=== PATIENT | male | born 1960 | race Two or more races ===

== ENCOUNTER 2019-01-12 16:38 | Inpatient (IN) | payer OTHER ==
[~2019-01-12] VITALS: Ht 170.2 cm; Wt 87.5 kg
--- NOTE | 2019-01-12 17:00 | NUR ---
ED Nurse Note: Patient arrived by ambulance from hospice due to prolapsed colostomy and AMS. A/Ox0, Non-verbal. SBP in the 90's, MD aware. Afebrile. IV site already estbalished by EMS on LFA 22G. Patient was found on the ground at the hospice. Will continue care of plan.
--- NOTE | 2019-01-12 17:13 | NUR ---
ED Nurse Note: RN spoke to Vasile richards at [facility]. Patient was found on the floor @ 1330. Unwitneesed fall. No information available if patient sustain any new injury.
[2019-01-12 17:14] LABS: HEMATOCRIT 29.8 % (42.0-52.0); MEAN CORPUSCULAR VOLUME 85 FL (80-99); PLATELET COUNT 138 K/UL (150-450); RED BLOOD COUNT 3.51 M/UL (4.70-6.10); RED CELL DISTRIBUTION WIDTH 20.6 % (11.6-14.8); WHITE BLOOD COUNT 6.6 K/UL (4.8-10.8)
[2019-01-12 17:19] LABS: BASOPHILS % (AUTO) 0.4 % (0.0-2.0); EOSINOPHILS % (AUTO) 1.5 % (0.0-3.0); LYMPHOCYTES % (AUTO) 8.5 % (20.0-45.0); MONOCYTES % (AUTO) 4.7 % (1.0-10.0); NEUTROPHILS % (AUTO) 86.9 % (45.0-75.0)
--- NOTE | 2019-01-12 17:24 | Emergency Room Report ---
History of Present Illness General Chief Complaint: Altered Level of Consciousness Present Illness HPI 58-year-old male sent in from [facility] for hypoxia, fall 1 PM today, and colostomy complication. Patient is DNR/DNI, comfort measures only. Patient is nonverbal history taken from [facility] paperwork and report by EMS. Patient sustained a fall out of his bed today at unknown time was found on the floor at 1 PM. Patient was found to be hypoxic saturating 80% on room air at that time. Patient's pulse ox improved with nonrebreather prior to arrival. As per paperwork patient also noted to have protruding colon into colostomy bag. Patient unable to provide history due to nonverbal status. Allergies: Coded Allergies: PENICILLINS (Verified Allergy, Unknown, 01/12/19) Physical Exam Vital Signs Date Time Temp Pulse Resp B/P (MAP) Pulse Ox O2 Delivery O2 Flow Rate FiO2 01/12/19 16:38 99.0 54 22 98/57 (71) 100 Non-Rebreather Sp02 EP Interpretation: reviewed, abnormal - 85% on room air improves to 100% on nonrebreather General Appearance: moderate distress Head: other - Well-healing laceration above right eye, clean dry and intact, mild erythema superior to right orbit. Respiratory: other - Rhonchi bilaterally poor inspiratory effort Cardiovascular #1: regular rate, rhythm, no edema Cardiovascular #2: 2+ radial (R), 2+ radial (L) Gastrointestinal: soft, other - Left-sided colostomy noted with pink tissue stool in colostomy bag, no erythema or surrounding discharge Skin: other - Multiple diffuse ecchymoses on lower extremities, dressing covering right lower leg wound clean dry and intact Procedures Critical Care Time Critical Care Time Patient arrived he ED hypoxic. 60 minutes of critical care time, excluding procedures, spent on reevaluating patient's pulse oxygenation. Decision to make patient on BiPAP continue to reassess. Patient became hypotensive. Central line placed. Patient admitted to ICU Central Line Central Line : Consent: Verbal Central Line Lumen: triple Maximal Sterile Barrier Tech: yes cap, yes mask, yes sterile gown, yes sterile gloves, yes large sterile sheet, yes hand hygiene, yes chlorhexidine prep Anesthesia: Lidocaine Complications: none Central Line Post Position: sutured, good blood return, position confirmed w / CXR Attempts: Other - 2 Patient Tolerated: Well Complications: None Medical Decision Making ER Course 58-year-old male presents with altered mental status status post fall hypoxia and abnormal colostomy. Patient found to be hypoxic to 84% improved with nonrebreather decision with family made at bedside to put patient on BiPAP comfort measures removed patient made full code however noted no intubation. Patient's would like BiPAP central line and pressors as needed. Patient became hypotensive at 21:00, central line placed in the right internal jugular. Patient tolerated procedure well patient admitted to ICU discussed case with Dr. Geiger. Labs Test 01/12/19 16:30 01/12/19 17:25 01/12/19 19:30 White Blood Count 6.6 K/UL (4.8-10.8) Red Blood Count 3.51 M/UL (4.70-6.10) Hemoglobin 9.0 G/DL (14.2-18.0) Hematocrit 29.8 % (42.0-52.0) Mean Corpuscular Volume 85 FL (80-99) Mean Corpuscular Hemoglobin 25.7 PG (27.0-31.0) Mean Corpuscular Hemoglobin Concent 30.3 G/DL (32.0-36.0) Red Cell Distribution Width 20.6 % (11.6-14.8) Platelet Count 138 K/UL (150-450) Mean Platelet Volume 6.6 FL (6.5-10.1) Neutrophils (%) (Auto) 86.9 % (45.0-75.0) Lymphocytes (%) (Auto) 8.5 % (20.0-45.0) Monocytes (%) (Auto) 4.7 % (1.0-10.0) Eosinophils (%) (Auto) 1.5 % (0.0-3.0) Basophils (%) (Auto) 0.4 % (0.0-2.0) Prothrombin Time 13.6 SEC (9.30-11.50) Prothromb Time International Ratio 1.3 (0.9-1.1) Sodium Level 146 MMOL/L (136-145) Potassium Level 3.9 MMOL/L (3.5-5.1) Chloride Level 107 MMOL/L (98-107) Carbon Dioxide Level 37 MMOL/L (21-32) Anion Gap 2 mmol/L (5-15) Blood Urea Nitrogen 21 mg/dL (7-18) Creatinine 1.2 MG/DL (0.55-1.30) Estimat Glomerular Filtration Rate > 60 mL/min (>60) Glucose Level 115 MG/DL (74-106) Lactic Acid Level 1.20 mmol/L (0.4-2.0) Calcium Level 8.6 MG/DL (8.5-10.1) Total Bilirubin 0.9 MG/DL (0.2-1.0) Aspartate Amino Transf (AST/SGOT) 28 U/L (15-37) Alanine Aminotransferase (ALT/SGPT) 16 U/L (12-78) Alkaline Phosphatase 84 U/L (46-116) Total Creatine Kinase 23 U/L (26-308) Creatine Kinase MB 2.1 NG/ML (0.0-3.6) Creatine Kinase MB Relative Index 9.1 Troponin I 0.010 ng/mL (0.000-0.056) Pro-B-Type Natriuretic Peptide 77797 pg/mL (0-125) Total Protein 6.4 G/DL (6.4-8.2) Albumin 1.8 G/DL (3.4-5.0) Globulin 4.6 g/dL Albumin/Globulin Ratio 0.4 (1.0-2.7) Urine Color Yellow Urine Appearance Slightly cloudy Urine pH 5 (4.5-8.0) Urine Specific [place] 1.020 (1.005-1.035) Urine Protein 1+ (NEGATIVE) Urine Glucose (UA) Negative (NEGATIVE) Urine Ketones Negative (NEGATIVE) Urine Blood 3+ (NEGATIVE) Urine Nitrite Negative (NEGATIVE) Urine Bilirubin Negative (NEGATIVE) Urine Urobilinogen Normal MG/DL (0.0-1.0) Urine Leukocyte Esterase 2+ (NEGATIVE) Urine RBC 2-4 /HPF (0 - 0) Urine WBC 20-30 /HPF (0 - 0) Urine Squamous Epithelial Cells Few /LPF (NONE/OCC) Urine Bacteria Moderate /HPF (NONE) Arterial Blood pH 7.315 (7.350-7.450) Arterial Blood Partial Pressure CO2 66.3 mmHg (35.0-45.0) Arterial Blood Partial Pressure O2 227.8 mmHg (75.0-100.0) Arterial Blood HCO3 33.0 mmol/L (22.0-26.0) Arterial Blood Oxygen Saturation 98.9 % (95-100) Arterial Blood Base Excess 5.6 (-2-2) Willian Test Positive Last Vital Signs Date Time Temp Pulse Resp B/P (MAP) Pulse Ox O2 Delivery O2 Flow Rate FiO2 01/12/19 16:38 99.0 54 22 98/57 (71) 100 Non-Rebreather Status: improved Reevaluation Impression Upgraded to ICU central line placed. pressors to be ordered as needed by inpatient Dr. Disposition: ADMITTED INPATIENT Condition: Critical Scripts Unable to Obtain Active Prescriptions or Reported Meds Referrals: NON PHYSICIAN (PCP) Maximino Castillo M.D. Jan 12, 2019 17:24
[2019-01-12 17:27] LABS: ANION GAP 2 mmol/L (5-15); BLOOD UREA NITROGEN 21 mg/dL (7-18); CALCIUM 8.6 MG/DL (8.5-10.1); CARBON DIOXIDE 37 MMOL/L (21-32); CHLORIDE 107 MMOL/L (98-107); CREATININE 1.2 MG/DL (0.55-1.30); INR 1.3 (0.9-1.1); POTASSIUM 3.9 MMOL/L (3.5-5.1); SODIUM 146 MMOL/L (136-145)
[2019-01-12 17:31] LABS: APPEARANCE,URINE SLIGHTLY CLOUDY; BILIRUBIN, URINE NEGATIVE (NEGATIVE); GLUCOSE, URINE (UA) NEGATIVE (NEGATIVE); KETONES,URINE NEGATIVE (NEGATIVE); LEUKOCYTE ESTERASE ,URINE 2+ (NEGATIVE); NITRITE,URINE NEGATIVE (NEGATIVE); PH,URINE 5 (4.5-8.0); PROTEIN,URINE 1+ (NEGATIVE); UROBILINOGEN,URINE NORMAL MG/DL (0.0-1.0)
[2019-01-12 17:32] LABS: COLOR,URINE YELLOW
[2019-01-12 17:40] LABS: ALANINE AMINOTRANSFERASE 16 U/L (12-78); ALBUMIN 1.8 G/DL (3.4-5.0); ALBUMIN/GLOBULIN RATIO 0.4 (1.0-2.7); ALKALINE PHOSPHATASE 84 U/L (46-116); ASPARTATE AMINO TRANSFERASE 28 U/L (15-37); BILIRUBIN,TOTAL 0.9 MG/DL (0.2-1.0); CKMB 2.1 NG/ML (0.0-3.6); CREATINE KINASE 23 U/L (26-308)
[2019-01-12] MEDS ORDERED: Cefepime HCl 1 GM in NS 55 ML IV SCH (18:00)
--- NOTE | 2019-01-12 18:15 | NUR ---
ED Nurse Note: General Sales Manager, Scott @ [phone] called here if patient arrived in ER.
--- NOTE | 2019-01-12 18:23 | NUR ---
ED Nurse Note: called SNF for medication list. will fax to ER.
--- NOTE | 2019-01-12 18:43 | Diagnostic Imaging Report ---
History: AMS Exam: XR CXR 1 VIEW Comparison: None available FINDINGS: Appearance suggesting a large left pleural effusion with white out of the left hemithorax. No evidence of mediastinal shift of the trachea. Enlarged cardiac size seen with note of multilead AICD. Patchy opacity at the right base may represent atelectasis or developing infiltrate. IMPRESSION: Appearance suggesting a large left pleural effusion with white out of the left hemithorax. No evidence of mediastinal shift of the trachea. Enlarged cardiac size seen with note of multilead AICD. Patchy opacity at the right base may represent atelectasis or developing infiltrate.
[2019-01-12 18:52] VITALS: BP 99/68
--- NOTE | 2019-01-12 18:52 | Diagnostic Imaging Report ---
History: FALL Exam: CT HEAD Without Contrast Technique more: CTDI is 62.70 mGy and DLP is 1426.40 mGy-cm. Technique more: One or more of the following dose reduction techniques were used: automated exposure control, adjustment of the mA and or kV according to patient size, use of iterative reconstruction technique. Comparison: None available FINDINGS: No intracranial hemorrhage, mass effect or calvarial fracture. The ventricles are within limits and midline. 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 Nonacute appearing right frontal infarct. Bilateral parasellar carotid and intracranial vertebral vascular calcification. The visualized peroneal sinuses, mastoids and orbits appear within limits. IMPRESSION: No intracranial hemorrhage, mass effect or calvarial fracture. 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 Nonacute appearing right frontal infarct, clinically correlate.
--- NOTE | 2019-01-12 19:14 | NUR ---
ED Nurse Note: Report given to NIMCO Sosa.
--- NOTE | 2019-01-12 19:15 | NUR ---
ED Nurse Note: pt family member at bedside. pt iv line intact and patent. pt shows no acute signs of distress at the moment. pt on a nonrebreather. vss. called RT for ABG. no other orders at this time. will continue to monitor
--- NOTE | 2019-01-12 19:19 | NUR ---
ED Nurse Note: Flu swabs collected and sent to lab.
[2019-01-12 19:20] VITALS: BP 98/74
--- NOTE | 2019-01-12 19:20 | NUR ---
ED Nurse Note: PT HAS 3 WOUNDS NOTED. WCP TAKEN AND UPLOADED Addendum: 01/12/19 at 2022 by PDELEON ED Nurse Note: PT HAS 4 WOUNDS NOTED. WCP TAKEN AND UPLOADED
--- NOTE | 2019-01-12 19:30 | NUR ---
ED Nurse Note: +1 PITTING EDEMA NOTED IN THE RIGHT HAND. ERMD AWARE.
--- NOTE | 2019-01-12 19:45 | NUR ---
ED Nurse Note: RT at bedside
--- NOTE | 2019-01-12 20:53 | NUR ---
ED Nurse Note: TELEPHONE ENDORSEMENT GIVEN TO NIMCO RODRIGUEZ FOR CONTINUITY OF CARE
[2019-01-12] MEDS ORDERED: Lidocaine 1% Plain 30 ml INJ ONE ×2 (21:07→21:30)
[2019-01-12 21:10] VITALS: BP 84/45
--- NOTE | 2019-01-12 21:15 | NUR ---
ED Nurse Note: Informed ermd that pt BP was 78/56.
--- NOTE | 2019-01-12 21:25 | NUR ---
ED Nurse Notes: Central line placed per ermd
--- NOTE | 2019-01-12 21:45 | NUR ---
ED Nurse Note: XRAY AT BEDSIDE
--- NOTE | 2019-01-12 21:48 | NUR ---
ED Nurse Note:. XRAY COMPLETE
--- NOTE | 2019-01-12 21:51 | Emergency Room Report ---
Sepsis Event Note Evaluation Current Stage of Sepsis: Septic Shock Possible Source: Pulmonary Problems: (1) Hypoxia ICD Codes: R09.02 - Hypoxemia SNOMED: 833515402 (2) AMS (altered mental status) ICD Codes: R41.82 - Altered mental status, unspecified Qualifiers: Qualified Codes: R41.0 - Disorientation, unspecified SNOMED: 399778833 Focused Exam Allergies: Coded Allergies: PENICILLINS (Verified Allergy, Unknown, 01/12/19) Date Exam Occurred: Jan 12, 2019 Time Exam Occurred: 21:49 Laboratory Studies Laboratory Tests Test 01/12/19 16:30 01/12/19 17:25 01/12/19 19:30 White Blood Count 6.6 K/UL (4.8-10.8) Red Blood Count 3.51 M/UL (4.70-6.10) L Hemoglobin 9.0 G/DL (14.2-18.0) L Hematocrit 29.8 % (42.0-52.0) L Mean Corpuscular Volume 85 FL (80-99) Mean Corpuscular Hemoglobin 25.7 PG (27.0-31.0) L Mean Corpuscular Hemoglobin Concent 30.3 G/DL (32.0-36.0) L Red Cell Distribution Width 20.6 % (11.6-14.8) H Platelet Count 138 K/UL (150-450) L Mean Platelet Volume 6.6 FL (6.5-10.1) Neutrophils (%) (Auto) 86.9 % (45.0-75.0) H Lymphocytes (%) (Auto) 8.5 % (20.0-45.0) L Monocytes (%) (Auto) 4.7 % (1.0-10.0) Eosinophils (%) (Auto) 1.5 % (0.0-3.0) Basophils (%) (Auto) 0.4 % (0.0-2.0) Prothrombin Time 13.6 SEC (9.30-11.50) H Prothromb Time International Ratio 1.3 (0.9-1.1) H Sodium Level 146 MMOL/L (136-145) H Potassium Level 3.9 MMOL/L (3.5-5.1) Chloride Level 107 MMOL/L (98-107) Carbon Dioxide Level 37 MMOL/L (21-32) H Anion Gap 2 mmol/L (5-15) L Blood Urea Nitrogen 21 mg/dL (7-18) H Creatinine 1.2 MG/DL (0.55-1.30) Estimat Glomerular Filtration Rate > 60 mL/min (>60) Glucose Level 115 MG/DL (74-106) H Lactic Acid Level 1.20 mmol/L (0.4-2.0) Calcium Level 8.6 MG/DL (8.5-10.1) Total Bilirubin 0.9 MG/DL (0.2-1.0) Aspartate Amino Transf (AST/SGOT) 28 U/L (15-37) Alanine Aminotransferase (ALT/SGPT) 16 U/L (12-78) Alkaline Phosphatase 84 U/L (46-116) Total Creatine Kinase 23 U/L (26-308) L Creatine Kinase MB 2.1 NG/ML (0.0-3.6) Creatine Kinase MB Relative Index 9.1 Troponin I 0.010 ng/mL (0.000-0.056) Pro-B-Type Natriuretic Peptide 23370 pg/mL (0-125) H Total Protein 6.4 G/DL (6.4-8.2) Albumin 1.8 G/DL (3.4-5.0) L Globulin 4.6 g/dL Albumin/Globulin Ratio 0.4 (1.0-2.7) L Urine Color Yellow Urine Appearance Slightly cloudy Urine pH 5 (4.5-8.0) Urine Specific [place] 1.020 (1.005-1.035) Urine Protein 1+ (NEGATIVE) H Urine Glucose (UA) Negative (NEGATIVE) Urine Ketones Negative (NEGATIVE) Urine Blood 3+ (NEGATIVE) H Urine Nitrite Negative (NEGATIVE) Urine Bilirubin Negative (NEGATIVE) Urine Urobilinogen Normal MG/DL (0.0-1.0) Urine Leukocyte Esterase 2+ (NEGATIVE) H Urine RBC 2-4 /HPF (0 - 0) H Urine WBC 20-30 /HPF (0 - 0) H Urine Squamous Epithelial Cells Few /LPF (NONE/OCC) Urine Bacteria Moderate /HPF (NONE) H Arterial Blood pH 7.315 (7.350-7.450) Arterial Blood Partial Pressure CO2 66.3 mmHg (35.0-45.0) *H Arterial Blood Partial Pressure O2 227.8 mmHg (75.0-100.0) H Arterial Blood HCO3 33.0 mmol/L (22.0-26.0) H Arterial Blood Oxygen Saturation 98.9 % (95-100) Arterial Blood Base Excess 5.6 (-2-2) H Willian Test Positive Vital Signs Last 24 Hour Vital Signs Date Time Temp Pulse Resp B/P (MAP) Pulse Ox O2 Delivery O2 Flow Rate FiO2 01/12/19 19:20 98.4 81 20 98/74 100 Venturi Mask 10.0 40 01/12/19 18:52 98.2 85 16 99/68 96 Venturi Mask 10.0 40 01/12/19 18:52 87 20 Venturi Mask 01/12/19 16:38 99.0 54 22 98/57 (71) 100 Non-Rebreather Respiratory Exam: Rhonchi - bilateral Cardiovascular Exam: RRR Capillary Refill: Less Than 2 Seconds Peripheral Pulse: Weak Skin Exam: Pale Bedside Monitoring Date bedside monitoring occur: Jan 12, 2019 Time bedside monitoring occur: 21:50 Passive Leg Raise/Fluid Bolus: Positive, Not Fluid Responsive - Central line and pressors started Maximino Castillo M.D. Jan 12, 2019 21:51
--- NOTE | 2019-01-12 21:56 | NUR ---
ED Nurse Note: SPOKE WITH PHARMACY ON THE PHONE. PHARMACY WILL PREPARE LEVOPHED IN 30 MIN
--- NOTE | 2019-01-12 22:35 | NUR ---
ED Nurse Note: Levophed intiated per protocol. will monitor BP and transfer pt to ICU per ermd order
--- NOTE | 2019-01-12 22:40 | Diagnostic Imaging Report ---
History: LINE Exam: XR CXR 1 VIEW at 21:45 Comparison: 01 12 2019 at 17:21 FINDINGS IMPRESSION: Right IJ line now seen with tip projecting at the expected location the lower SVC. No radiographic contraindication for use identified. No pneumothorax identified. Appearance of the chest otherwise not significantly changed.
[2019-01-12] MEDS ORDERED: Albuterol/Ipratropium 3ml neb HHN PRN (23:00)
--- NOTE | 2019-01-12 23:00 | NUR ---
TRANSFER TO FLOOR: Patient transferred to ICU as ordered, per ERMD. Report given to NIMCO Mai. Pt has no belongings. Family informed of transfer.
--- NOTE | 2019-01-12 23:00 | NUR ---
NURSE NOTES: Admitted pt from ED for AMS, hypotension. Pt arrived via gurney with STREET VENDOR. and transporter in no acute distress; awake, alert but somewhat confused. Follow commands and moves BUE purposefully. Speech garbled. Pt is currently on the Bipap at 10/5 fi)2 .35 and saturating 97%. Denies chest pains, denies SOB. Pt has a TLC on RIJ and Levophed gtt 8mg in [id number] infusing at 8mcg/min. Pt also has a PIV on RFA g 20. No beach cath. Left lower quadrant of abd noted to have a colostomy with freenish liquid stools and stoma is edematous but pinkish. Resurfaced old wound on sacral area as well as skin tears to right mccoy and LFA noted. Also noted sutures on right eyebrow.
[2019-01-12 23:15] VITALS: BP 91/78
[2019-01-12 23:30] VITALS: BP 106/72
[2019-01-12 23:45] VITALS: BP 107/77
[2019-01-12] MEDS ORDERED: D5NS 1,000 ML IV SCH (23:49)
[2019-01-13] VITALS (70 sets, daily range): BP systolic 73–121; BP diastolic 49–85
--- NOTE | 2019-01-13 | NUR ---
NURSE NOTES: Daughter Piper here and gave information on pt's health history as well clarify the code status. As per POLST, dtr verified that pt indeed is a DNR/DNI and signed a revised POLST. will continue to monitor VS
[2019-01-13] MEDS ORDERED: Vancomycin 1gm vial IVPB ONE (00:18)
--- NOTE | 2019-01-13 02:00 | NUR ---
NURSE NOTES: Continues to be on the Bipap; No respiratory distress noted. Levophed gtt continues at 8mcg/min. BP checked q 15mins. Pt getting restless and moves right hand purposefully
[2019-01-13] MEDS: Vancomycin 1 GM in D5W 275 ML IVPB SCH ×2 (02:27→16:26)
--- NOTE | 2019-01-13 04:00 | NUR ---
NURSE NOTES: Keeps removing the Bipap mask off. Restless. Complete bath given. Condom cath intact. Colostomy bag half filled with semi soft stools. Applied optifoam gel to skin tears and sacral area. Afebrile.
--- NOTE | 2019-01-13 06:00 | NUR ---
NURSE NOTES: Pt keeps getting bipap mask off and noticed that pt attempting to pull the central line out. [place] restraint applied to right arm:
[2019-01-13 06:14] LABS: BASOPHILS % (AUTO) 0.5 % (0.0-2.0); EOSINOPHILS % (AUTO) 2.4 % (0.0-3.0); HEMATOCRIT 33.9 % (42.0-52.0); HEMOGLOBIN 10.3 G/DL (14.2-18.0); LYMPHOCYTES % (AUTO) 10.4 % (20.0-45.0); MEAN CORPUSCULAR VOLUME 85 FL (80-99); MONOCYTES % (AUTO) 5.4 % (1.0-10.0); NEUTROPHILS % (AUTO) 81.4 % (45.0-75.0); PLATELET COUNT 182 K/UL (150-450); RED BLOOD COUNT 3.98 M/UL (4.70-6.10); RED CELL DISTRIBUTION WIDTH 20.7 % (11.6-14.8); WHITE BLOOD COUNT 7.5 K/UL (4.8-10.8)
[2019-01-13 06:42] LABS: ANION GAP 7 mmol/L (5-15); BLOOD UREA NITROGEN 20 mg/dL (7-18); CALCIUM 8.7 MG/DL (8.5-10.1); CARBON DIOXIDE 34 MMOL/L (21-32); CHLORIDE 107 MMOL/L (98-107); CREATININE 1.2 MG/DL (0.55-1.30); POTASSIUM 3.8 MMOL/L (3.5-5.1); SODIUM 148 MMOL/L (136-145)
--- NOTE | 2019-01-13 06:50 | NUR ---
RESPIRATORY NOTE: Received pt on Bipap 10/5- 35%FiO2. Pt is sleeping, no SOB or resp distress noted. No redness or skin breakdown noted, foam tapes applied on cheeks, chin and nose bridge. Alarms are set and audible, Bipap is plugged into the red outlet, ambu bag is at bedside. Will continue to monitor pt.
--- NOTE | 2019-01-13 07:15 | NUR ---
HAND-OFF: Report given to Gisell Telles RN.
--- NOTE | 2019-01-13 07:30 | NUR ---
NURSE NOTES: CONT LATE ENTRY RECEIVED REPORT FROM MICHAEL RINALDI. PT IN BED. DROWSY, AWAKENS TO SHAKING AND NAME. PUPILS 3MM SLUGGISH. PT ON PHYSICIAN RELATIONS REPRESENTATIVE HR 85, BP 104/55, 99%, RR 21. PT ON BIPAP 10/5, 35%. PT NPO EXCEPT MEDS AND ICE CHIPS. ABDOMEN DISTENDED, SOFT, NON TENDER. ABDOMINAL SOUNDS HYPOACTIVE, COLOSTOMY BAG LUQ, STOOL SOFT, NON FORMED, GREEN-BROWN. BILATERAL RADIAL AND PEDAL PULSES WEAK. CAP REFILL <3SEC. NO EDEMA. SKIN- SEE ASSESSMENT. IV ACCESS RT IJ. RUNNING LEVO AT 8MCG/MIN. D5NS AT 50ML/HR. STANDARD PRECAUTIONS IN PLACE. BED ALARM ON. LOCKED IN LOW POSITION. ELBOW RESTRAINT NOTED. WILL CONTINUE TO MONITOR PT.
[2019-01-13] MEDS: Aspirin EC 81mg tab ORAL SCH (08:46)
[2019-01-13] MEDS ORDERED: Enoxaparin 40mg Inj SUBQ SCH ×2 (09:00)
--- NOTE | 2019-01-13 12:00 | NUR ---
NURSE NOTES: CONT LATE ENTRY PT IN BED. RESTLESS, AWAKENS TO SHAKING. PUPILS 3MM SLUGGISH. PT ON LEARNING SUPPORT SPECIALIST HR 84, BP 83/53, 96%, RR 21. PT ON 4L NC WITH HUMIFICATION. PT NPO. ABDOMEN DISTENDED, SOFT, NON TENDER. COLOSTOMY BAG LUQ, CHANGED COLLECTION BAG. BILATERAL RADIAL AND PEDAL PULSES WEAK. CAP REFILL <3SEC. NO EDEMA. SKIN- SEE ASSESSMENT. IV ACCESS RT IJ. RUNNING LEVO AT 6 MCG/MIN. D5NS AT 50ML/HR. STANDARD PRECAUTIONS IN PLACE. BED ALARM ON. LOCKED IN LOW POSITION. RT SOFT WRIST RESTRAINT NOTED. WILL CONTINUE TO MONITOR PT.
--- NOTE | 2019-01-13 12:24 | History & Physical ---
History and Physical History & Physicial seen and examined. Full dictation completed no on 1221 hrs Preston Geiger MD Jan 13, 2019 12:24
--- NOTE | 2019-01-13 12:26 | General Progress Note ---
Assessment/Plan Status: stable Assessment/Plan: 1- Acute respiratory distress 2- Sepsis- HCA PNA 3- CM 4- CVA-ho of 5. DNR-DNI Plan: Pulmonary, ID, Nephro, are consulted on empirical abx rx. Subjective Allergies: Coded Allergies: PENICILLINS (Verified Allergy, Unknown, 01/12/19) Objective Last 24 Hour Vital Signs Date Time Temp Pulse Resp B/P (MAP) Pulse Ox O2 Delivery O2 Flow Rate FiO2 01/13/19 11:30 85 22 94/49 (64) 98 01/13/19 11:26 85 01/13/19 11:00 90 24 113/81 (92) 100 01/13/19 10:30 83 24 102/63 (76) 98 01/13/19 10:15 89 24 93/65 (74) 99 01/13/19 10:00 86 23 97/72 (80) 95 01/13/19 09:45 87 23 111/67 (82) 99 01/13/19 09:30 83 20 112/71 (85) 98 01/13/19 09:15 85 24 110/78 (89) 01/13/19 09:13 85 23 100 Facial 35 01/13/19 09:00 98.6 87 23 110/72 (85) 01/13/19 08:30 85 19 103/70 (81) 99 01/13/19 08:00 Bi-pap 01/13/19 08:00 82 18 97/67 (77) 98 01/13/19 08:00 35 01/13/19 08:00 84 01/13/19 07:30 84 23 104/55 (71) 100 01/13/19 07:00 86 21 107/63 (78) 100 01/13/19 06:50 88 19 100 Facial 35 01/13/19 06:45 86 20 107/64 (78) 99 01/13/19 06:30 84 21 111/75 (87) 100 01/13/19 06:15 84 23 104/65 (78) 99 01/13/19 06:00 84 20 102/59 (73) 96 01/13/19 06:00 102/59 01/13/19 05:45 90 18 99/58 (72) 97 01/13/19 05:30 85 21 100/60 (73) 97 01/13/19 05:26 86 29 100 Facial 35 01/13/19 05:15 86 23 100/69 (79) 100 01/13/19 05:00 84 20 106/62 (77) 100 01/13/19 05:00 115/71 01/13/19 04:45 89 25 115/71 (86) 01/13/19 04:30 89 23 113/70 (84) 01/13/19 04:15 93 24 108/66 (80) 93 01/13/19 04:00 121/81 01/13/19 04:00 97.6 85 23 121/81 (94) 95 01/13/19 04:00 Bi-pap 01/13/19 03:45 87 21 101/71 (81) 96 01/13/19 03:30 83 20 96/54 (68) 99 01/13/19 03:15 81 14 100 Facial 35 01/13/19 03:15 84 21 86/58 (67) 99 01/13/19 03:00 95/61 01/13/19 03:00 85 21 95/61 (72) 97 01/13/19 02:45 84 21 91/55 (67) 99 01/13/19 02:30 84 21 95/60 (72) 97 01/13/19 02:26 90/53 01/13/19 02:15 83 20 90/53 (65) 99 01/13/19 02:00 83 18 96/53 (67) 98 01/13/19 02:00 96/53 01/13/19 01:45 91 20 95/70 (78) 99 01/13/19 01:30 85 25 103/59 (74) 100 01/13/19 01:26 85 19 99 Facial 35 01/13/19 01:15 83 23 103/79 (87) 99 01/13/19 01:00 87 22 109/78 (88) 97 01/13/19 01:00 109/78 01/13/19 00:45 86 22 98/74 (82) 97 01/13/19 00:30 89 21 97/75 (82) 99 01/13/19 00:21 Bi-pap 01/13/19 00:15 88 21 108/85 (93) 98 01/13/19 00:00 88 01/13/19 00:00 35 01/13/19 00:00 97/75 01/13/19 00:00 87 23 92/74 (80) 98 01/12/19 23:45 87 22 107/77 (87) 97 01/12/19 23:30 88 22 106/72 (83) 97 01/12/19 23:15 97.6 87 18 91/78 (82) 98 01/12/19 23:00 106/72 01/12/19 23:00 98.5 82 24 119/71 100 Bi-pap 10.0 35 01/12/19 23:00 80 19 99 Facial 35 01/12/19 22:34 84/45 01/12/19 22:34 84/45 01/12/19 21:10 98.6 82 20 84/45 100 Bi-pap 01/12/19 21:08 88 21 97 Facial 35 01/12/19 20:00 81 19 98 Facial 35 01/12/19 19:20 98.4 81 20 98/74 100 Venturi Mask 10.0 40 01/12/19 18:52 98.2 85 16 99/68 96 Venturi Mask 10.0 40 01/12/19 18:52 87 20 Venturi Mask 01/12/19 16:38 99.0 54 22 98/57 (71) 100 Non-Rebreather Intake and Output 01/12/19 01/13/19 19:00 07:00 Intake Total 2055 ml 3060 ml Output Total 1 ml Balance 2055 ml 3059 ml Intake Oral 0 ml IV Total 2055 ml 3060 ml Output Urine Total 1 ml Laboratory Tests 01/12/19 16:30: White Blood Count 6.6, Red Blood Count 3.51L, Hemoglobin 9.0L, Hematocrit 29.8L , Mean Corpuscular Volume 85, Mean Corpuscular Hemoglobin 25.7L, Mean Corpuscular Hemoglobin Concent 30.3L, Red Cell Distribution Width 20.6H, Platelet Count 138L, Mean Platelet Volume 6.6, Neutrophils (%) (Auto) 86.9H, Lymphocytes (%) (Auto) 8.5L, Monocytes (%) (Auto) 4.7, Eosinophils (%) (Auto) 1.5, Basophils (%) (Auto) 0.4, Prothrombin Time 13.6H, Prothromb Time International Ratio 1.3H, Sodium Level 146H, Potassium Level 3.9, Chloride Level 107, Carbon Dioxide Level 37H, Anion Gap 2L, Blood Urea Nitrogen 21H, Creatinine 1.2, Estimat Glomerular Filtration Rate > 60, Glucose Level 115H, Lactic Acid Level 1.20, Calcium Level 8.6, Total Bilirubin 0.9, Aspartate Amino Transf (AST/SGOT) 28, Alanine Aminotransferase (ALT/SGPT) 16, Alkaline Phosphatase 84, Total Creatine Kinase 23L, Creatine Kinase MB 2.1, Creatine Kinase MB Relative Index 9.1, Troponin I 0.010, Pro-B-Type Natriuretic Peptide 26432Q, Total Protein 6.4, Albumin 1.8L, Globulin 4.6, Albumin/Globulin Ratio 0.4L 01/12/19 17:25: Urine Color Yellow, Urine Appearance Slightly cloudy, Urine pH 5, Urine Specific [place] 1.020, Urine Protein 1+H, Urine Glucose (UA) Negative, Urine Ketones Negative, Urine Blood 3+H, Urine Nitrite Negative, Urine Bilirubin Negative, Urine Urobilinogen Normal, Urine Leukocyte Esterase 2+H, Urine RBC 2- 4H, Urine WBC 20-30H, Urine Squamous Epithelial Cells Few, Urine Bacteria ModerateH 01/12/19 19:30: Arterial Blood pH 7.315L, Arterial Blood Partial Pressure CO2 66.3*H, Arterial Blood Partial Pressure O2 227.8H, Arterial Blood HCO3 33.0H, Arterial Blood Oxygen Saturation 98.9, Arterial Blood Base Excess 5.6H, Willian Test Positive 01/12/19 20:24: Arterial Blood pH 7.460H, Arterial Blood Partial Pressure CO2 51.2H, Arterial Blood Partial Pressure O2 71.8L, Arterial Blood HCO3 35.6H, Arterial Blood Oxygen Saturation 94.1L, Arterial Blood Base Excess 10.4*H, Willian Test Positive 01/13/19 04:19: White Blood Count 7.5, Red Blood Count 3.98L, Hemoglobin 10.3L, Hematocrit 33.9L , Mean Corpuscular Volume 85, Mean Corpuscular Hemoglobin 26.0L, Mean Corpuscular Hemoglobin Concent 30.4L, Red Cell Distribution Width 20.7H, Platelet Count 182, Mean Platelet Volume 5.7L, Neutrophils (%) (Auto) 81.4H, Lymphocytes (%) (Auto) 10.4L, Monocytes (%) (Auto) 5.4, Eosinophils (%) (Auto) 2.4, Basophils (%) (Auto) 0.5, Sodium Level 148H, Potassium Level 3.8, Chloride Level 107, Carbon Dioxide Level 34H, Anion Gap 7, Blood Urea Nitrogen 20H, Creatinine 1.2, Estimat Glomerular Filtration Rate > 60, Glucose Level 119H, Calcium Level 8.7 Height (Feet): 5 Height (Inches): 7.00 Weight (Pounds): 178 Preston Geiger MD Jan 13, 2019 12:26
--- NOTE | 2019-01-13 14:00 | NUR ---
NURSE NOTES: MD SCHWARTZ HERE TO SEE PT. WILL PLACE OWN ORDERS.
--- NOTE | 2019-01-13 14:59 | Pulmonolgy Critical Care Note ---
Critical Care - Asmt/Plan Problems: (1) Hypoxia (2) AMS (altered mental status) (3) Pulmonary hypertension (4) Dementia (5) H/O: stroke (6) Colostomy in place (7) Pacemaker (8) CHF (congestive heart failure) (9) Paroxysmal atrial fibrillation (10) Encephalopathy (11) SIRS (systemic inflammatory response syndrome) (12) Healthcare-associated pneumonia (13) Lung collapse Assessment/Plan: Optimize pulmonary hygiene/mobilize as tolerated D/C BiPAP, change to PRN only Titrate FiO2 to keep SaO2 > 90% RTC and PRN DUOnebs Mucomyst CPT Repeat CXR this afternoon Start Levaquin/Flagyl/Vanco, F/U Cx's Titrate NE to keep MAP > 60 Monitor volumes and renal function, change IVF to D5W@50 D/C LMWH, resume Xarelto NPO x meds with sips, 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 TESTER eval once off BiPAP and alert Monitor MS DVT Px: NOAC DNAR, continue to discuss GOC 60 min CCT D/W RN @ bedside Critical Care - Objective Last 24 Hour Vital Signs Date Time Temp Pulse Resp B/P (MAP) Pulse Ox O2 Delivery O2 Flow Rate FiO2 01/13/19 14:00 83 20 97/70 (79) 99 01/13/19 13:30 82 21 81/54 (63) 100 01/13/19 13:00 84 22 73/49 (57) 100 01/13/19 12:31 81 22 98 Full Face 35 01/13/19 12:30 84 20 86/49 (61) 97 01/13/19 12:00 98.6 87 19 94/60 (71) 98 01/13/19 12:00 Bi-pap 01/13/19 12:00 35 01/13/19 11:30 85 22 94/49 (64) 98 01/13/19 11:26 85 01/13/19 11:00 90 24 113/81 (92) 100 01/13/19 10:30 83 24 102/63 (76) 98 01/13/19 10:30 86 26 96 Facial 35 01/13/19 10:15 89 24 93/65 (74) 99 01/13/19 10:00 86 23 97/72 (80) 95 01/13/19 09:45 87 23 111/67 (82) 99 01/13/19 09:30 83 20 112/71 (85) 98 01/13/19 09:15 85 24 110/78 (89) 01/13/19 09:13 85 23 100 Facial 35 01/13/19 09:00 98.6 87 23 110/72 (85) 01/13/19 08:30 85 19 103/70 (81) 99 01/13/19 08:00 Bi-pap 01/13/19 08:00 82 18 97/67 (77) 98 01/13/19 08:00 35 01/13/19 08:00 84 01/13/19 07:30 84 23 104/55 (71) 100 01/13/19 07:00 86 21 107/63 (78) 100 01/13/19 06:50 88 19 100 Facial 35 01/13/19 06:45 86 20 107/64 (78) 99 01/13/19 06:30 84 21 111/75 (87) 100 01/13/19 06:15 84 23 104/65 (78) 99 01/13/19 06:00 84 20 102/59 (73) 96 01/13/19 06:00 102/59 01/13/19 05:45 90 18 99/58 (72) 97 01/13/19 05:30 85 21 100/60 (73) 97 01/13/19 05:26 86 29 100 Facial 35 01/13/19 05:15 86 23 100/69 (79) 100 01/13/19 05:00 84 20 106/62 (77) 100 01/13/19 05:00 115/71 01/13/19 04:45 89 25 115/71 (86) 01/13/19 04:30 89 23 113/70 (84) 01/13/19 04:15 93 24 108/66 (80) 93 01/13/19 04:00 121/81 01/13/19 04:00 97.6 85 23 121/81 (94) 95 01/13/19 04:00 Bi-pap 01/13/19 03:45 87 21 101/71 (81) 96 01/13/19 03:30 83 20 96/54 (68) 99 01/13/19 03:15 81 14 100 Facial 35 01/13/19 03:15 84 21 86/58 (67) 99 01/13/19 03:00 95/61 01/13/19 03:00 85 21 95/61 (72) 97 01/13/19 02:45 84 21 91/55 (67) 99 01/13/19 02:30 84 21 95/60 (72) 97 01/13/19 02:26 90/53 01/13/19 02:15 83 20 90/53 (65) 99 01/13/19 02:00 83 18 96/53 (67) 98 01/13/19 02:00 96/53 01/13/19 01:45 91 20 95/70 (78) 99 01/13/19 01:30 85 25 103/59 (74) 100 01/13/19 01:26 85 19 99 Facial 35 01/13/19 01:15 83 23 103/79 (87) 99 01/13/19 01:00 87 22 109/78 (88) 97 01/13/19 01:00 109/78 01/13/19 00:45 86 22 98/74 (82) 97 01/13/19 00:30 89 21 97/75 (82) 99 01/13/19 00:21 Bi-pap 01/13/19 00:15 88 21 108/85 (93) 98 01/13/19 00:00 88 01/13/19 00:00 35 01/13/19 00:00 97/75 01/13/19 00:00 87 23 92/74 (80) 98 01/12/19 23:45 87 22 107/77 (87) 97 01/12/19 23:30 88 22 106/72 (83) 97 01/12/19 23:15 97.6 87 18 91/78 (82) 98 01/12/19 23:00 106/72 01/12/19 23:00 98.5 82 24 119/71 100 Bi-pap 10.0 35 01/12/19 23:00 80 19 99 Facial 35 01/12/19 22:34 84/45 01/12/19 22:34 84/45 01/12/19 21:10 98.6 82 20 84/45 100 Bi-pap 01/12/19 21:08 88 21 97 Facial 35 01/12/19 20:00 81 19 98 Facial 35 10/18/19 19:20 98.4 81 20 98/74 100 Venturi Mask 10.0 40 01/12/19 18:52 98.2 85 16 99/68 96 Venturi Mask 10.0 40 01/12/19 18:52 87 20 Venturi Mask 01/12/19 16:38 99.0 54 22 98/57 (71) 100 Non-Rebreather Status: obtunded Condition: critical HEENT: atraumatic, normocephalic, other - BiPAP Neck: other - R IJ Lungs: rhonchi - on R, other - No BS on L Heart: HR/BP unstable Abdomen: soft, non-tender, active bowel sounds, other - Colostomy, midline wound granulated Extremities: no C/C/E Micro: Microbiology Date/Time Source Procedure Growth Status 01/12/19 19:50 Nasal Nares - Final Complete 01/12/19 19:50 Nasal Nares - Final Complete 01/12/19 20:02 Rectum Received Blood Sugars: BS controlled Critical Care - Subjective ROS Limited/Unobtainable: Yes ICU Day: 1 Interval Events: 60 M h/o CM S/P PM, pAF on Xarelto, CVA with baseline L sided weakness, dementia , PH on 5L O2 @ baseline, GERD, colostomy, DNAR/DNI with a POLST stating 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 His requested that pt be placed on pressors and BiPAP in the ED so a R IJ was placed, pt is on BiPAP and on 6 mcg NE. CXR with L HT opacified. He is arousable but confused. Condition: critical IV Access: central - R IJ EKG Rhythm: Sinus Rhythm FI02: 35 Vent Support Mode: BiLevel Secretions: None I&O: Intake and Output 01/12/19 01/13/19 19:00 07:00 Intake Total 2055 ml 3060 ml Output Total 1 ml Balance 2055 ml 3059 ml Intake Oral 0 ml IV Total 2055 ml 3060 ml Output Urine Total 1 ml Subjective: NISHI CXR: L HEMITHORAX OPACIFIED Labs: Laboratory Tests Test 01/12/19 16:30 01/12/19 17:25 01/12/19 19:30 01/12/19 20:24 White Blood Count 6.6 K/UL (4.8-10.8) Red Blood Count 3.51 M/UL (4.70-6.10) L Hemoglobin 9.0 G/DL (14.2-18.0) L Hematocrit 29.8 % (42.0-52.0) L Mean Corpuscular Volume 85 FL (80-99) Mean Corpuscular Hemoglobin 25.7 PG (27.0-31.0) L Mean Corpuscular Hemoglobin Concent 30.3 G/DL (32.0-36.0) L Red Cell Distribution Width 20.6 % (11.6-14.8) H Platelet Count 138 K/UL (150-450) L Mean Platelet Volume 6.6 FL (6.5-10.1) Neutrophils (%) (Auto) 86.9 % (45.0-75.0) H Lymphocytes (%) (Auto) 8.5 % (20.0-45.0) L Monocytes (%) (Auto) 4.7 % (1.0-10.0) Eosinophils (%) (Auto) 1.5 % (0.0-3.0) Basophils (%) (Auto) 0.4 % (0.0-2.0) Prothrombin Time 13.6 SEC (9.30-11.50) H Prothromb Time International Ratio 1.3 (0.9-1.1) H Sodium Level 146 MMOL/L (136-145) H Potassium Level 3.9 MMOL/L (3.5-5.1) Chloride Level 107 MMOL/L (98-107) Carbon Dioxide Level 37 MMOL/L (21-32) H Anion Gap 2 mmol/L (5-15) L Blood Urea Nitrogen 21 mg/dL (7-18) H Creatinine 1.2 MG/DL (0.55-1.30) Estimat Glomerular Filtration Rate > 60 mL/min (>60) Glucose Level 115 MG/DL (74-106) H Lactic Acid Level 1.20 mmol/L (0.4-2.0) Calcium Level 8.6 MG/DL (8.5-10.1) Total Bilirubin 0.9 MG/DL (0.2-1.0) Aspartate Amino Transf (AST/SGOT) 28 U/L (15-37) Alanine Aminotransferase (ALT/SGPT) 16 U/L (12-78) Alkaline Phosphatase 84 U/L (46-116) Total Creatine Kinase 23 U/L (26-308) L Creatine Kinase MB 2.1 NG/ML (0.0-3.6) Creatine Kinase MB Relative Index 9.1 Troponin I 0.010 ng/mL (0.000-0.056) Pro-B-Type Natriuretic Peptide 43315 pg/mL (0-125) H Total Protein 6.4 G/DL (6.4-8.2) Albumin 1.8 G/DL (3.4-5.0) L Globulin 4.6 g/dL Albumin/Globulin Ratio 0.4 (1.0-2.7) L Urine Color Yellow Urine Appearance Slightly cloudy Urine pH 5 (4.5-8.0) Urine Specific Vaughan 1.020 (1.005-1.035) Urine Protein 1+ (NEGATIVE) H Urine Glucose (UA) Negative (NEGATIVE) Urine Ketones Negative (NEGATIVE) Urine Blood 3+ (NEGATIVE) H Urine Nitrite Negative (NEGATIVE) Urine Bilirubin Negative (NEGATIVE) Urine Urobilinogen Normal MG/DL (0.0-1.0) Urine Leukocyte Esterase 2+ (NEGATIVE) H Urine RBC 2-4 /HPF (0 - 0) H Urine WBC 20-30 /HPF (0 - 0) H Urine Squamous Epithelial Cells Few /LPF (NONE/OCC) Urine Bacteria Moderate /HPF (NONE) H Arterial Blood pH 7.315 (7.350-7.450) 7.460 (7.350-7.450) Arterial Blood Partial Pressure CO2 66.3 mmHg (35.0-45.0) *H 51.2 mmHg (35.0-45.0) H Arterial Blood Partial Pressure O2 227.8 mmHg (75.0-100.0) H 71.8 mmHg (75.0-100.0) L Arterial Blood HCO3 33.0 mmol/L (22.0-26.0) H 35.6 mmol/L (22.0-26.0) H Arterial Blood Oxygen Saturation 98.9 % (95-100) 94.1 % (95-100) L Arterial Blood Base Excess 5.6 (-2-2) H 10.4 (-2-2) *H Willian Test Positive Positive Test 01/13/19 04:19 White Blood Count 7.5 K/UL (4.8-10.8) Red Blood Count 3.98 M/UL (4.70-6.10) L Hemoglobin 10.3 G/DL (14.2-18.0) L Hematocrit 33.9 % (42.0-52.0) L Mean Corpuscular Volume 85 FL (80-99) Mean Corpuscular Hemoglobin 26.0 PG (27.0-31.0) L Mean Corpuscular Hemoglobin Concent 30.4 G/DL (32.0-36.0) L Red Cell Distribution Width 20.7 % (11.6-14.8) H Platelet Count 182 K/UL (150-450) Mean Platelet Volume 5.7 FL (6.5-10.1) L Neutrophils (%) (Auto) 81.4 % (45.0-75.0) H Lymphocytes (%) (Auto) 10.4 % (20.0-45.0) L Monocytes (%) (Auto) 5.4 % (1.0-10.0) Eosinophils (%) (Auto) 2.4 % (0.0-3.0) Basophils (%) (Auto) 0.5 % (0.0-2.0) Sodium Level 148 MMOL/L (136-145) H Potassium Level 3.8 MMOL/L (3.5-5.1) Chloride Level 107 MMOL/L (98-107) Carbon Dioxide Level 34 MMOL/L (21-32) H Anion Gap 7 mmol/L (5-15) Blood Urea Nitrogen 20 mg/dL (7-18) H Creatinine 1.2 MG/DL (0.55-1.30) Estimat Glomerular Filtration Rate > 60 mL/min (>60) Glucose Level 119 MG/DL (74-106) H Calcium Level 8.7 MG/DL (8.5-10.1) James Maynard MD Jan 13, 2019 14:58
[2019-01-13] MEDS: Albuterol/Ipratropium 3ml neb HHN SCH ×3 (15:04→23:45)
--- NOTE | 2019-01-13 16:00 | NUR ---
NURSE NOTES: CONT LATE ENTRY PT IN BED. RESTLESS, AWAKENS TO SHAKING. PUPILS 3MM SLUGGISH. 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 PT ON 4L NC WITH HUMIFICATION. PT NPO. ABDOMEN DISTENDED, SOFT, NON TENDER. COLOSTOMY BAG LUQ. NO STOOL. BILATERAL RADIAL AND PEDAL PULSES WEAK. CAP REFILL <3SEC. NO EDEMA. IV ACCESS RT IJ. RUNNING LEVO AT 4 MCG/MIN. D5W AT 50ML/HR. STANDARD PRECAUTIONS IN PLACE. BED ALARM ON. LOCKED IN LOW POSITION. RT SOFT WRIST RESTRAINT NOTED. WILL CONTINUE TO MONITOR PT.
--- NOTE | 2019-01-13 16:27 | Diagnostic Imaging Report ---
EXAM: XR Chest, 1 View CLINICAL HISTORY: DYSPHAGIA TECHNIQUE: Frontal view of the chest. COMPARISON: Chest x-ray, 2144 FINDINGS: Lungs: Left lung opacification with slightly improved aeration in the left upper lobe. Improvement in the interstitial prominence of the right lung. Pleural space: Small bilateral pleural effusions, greater on the left, likely stable. No pneumothorax. Heart: Cardiomegaly. Mediastinum: Unremarkable. Bones joints: Unremarkable. Tubes, lines and devices: Stable right IJ catheter.. Cardiac pacemaker. IMPRESSION: 1. Left lung opacification with slightly improved aeration in the left upper lobe. Improvement in the interstitial prominence of the right lung. 2. Small bilateral pleural effusions, greater on the left, likely stable.
[2019-01-13] MEDS ORDERED: D5NS 1000ml IV ONE (16:58)
[2019-01-13] MEDS ORDERED: Tubing IV Secondary IV ONE (16:58)
[2019-01-13] MEDS ORDERED: NS 275ml ONE (16:58)
--- NOTE | 2019-01-13 18:45 | Cardiology Progress Note ---
Subjective Subjective The patient is seen and examined, full consult note will be dictated shortly. Objective Last 24 Hour Vital Signs Date Time Temp Pulse Resp B/P (MAP) Pulse Ox O2 Delivery O2 Flow Rate FiO2 01/13/19 18:30 83 19 106/60 (75) 100 01/13/19 18:00 84 25 93/70 (78) 100 01/13/19 17:30 81 20 84/61 (69) 100 01/13/19 17:00 83 22 87/57 (67) 100 01/13/19 16:30 83 18 95/53 (67) 100 01/13/19 16:00 4.0 01/13/19 16:00 Bi-pap 01/13/19 16:00 98.0 84 21 83/53 (63) 100 01/13/19 16:00 83 01/13/19 15:30 83 19 89/64 (72) 100 01/13/19 15:14 88 23 100 Nasal Cannula 4.0 36 87 24 98 01/13/19 15:02 84 23 98 01/13/19 15:00 83 25 102/67 (79) 100 01/13/19 14:30 81 21 101/66 (78) 100 01/13/19 14:00 83 20 97/70 (79) 99 01/13/19 14:00 4.0 01/13/19 13:30 82 21 81/54 (63) 100 01/13/19 13:00 84 22 73/49 (57) 100 01/13/19 12:31 81 22 98 Full Face 35 01/13/19 12:30 84 20 86/49 (61) 97 01/13/19 12:00 98.6 87 19 94/60 (71) 98 01/13/19 12:00 Bi-pap 01/13/19 12:00 35 01/13/19 11:30 85 22 94/49 (64) 98 01/13/19 11:26 85 01/13/19 11:00 90 24 113/81 (92) 100 01/13/19 10:30 83 24 102/63 (76) 98 01/13/19 10:30 86 26 96 Facial 35 01/13/19 10:15 89 24 93/65 (74) 99 01/13/19 10:00 86 23 97/72 (80) 95 01/13/19 09:45 87 23 111/67 (82) 99 01/13/19 09:30 83 20 112/71 (85) 98 01/13/19 09:15 85 24 110/78 (89) 01/13/19 09:13 85 23 100 Facial 35 01/13/19 09:00 98.6 87 23 110/72 (85) 01/13/19 08:30 85 19 103/70 (81) 99 01/13/19 08:00 Bi-pap 01/13/19 08:00 82 18 97/67 (77) 98 01/13/19 08:00 35 01/13/19 08:00 84 01/13/19 07:30 84 23 104/55 (71) 100 01/13/19 07:00 86 21 107/63 (78) 100 01/13/19 06:50 88 19 100 Facial 35 01/13/19 06:45 86 20 107/64 (78) 99 01/13/19 06:30 84 21 111/75 (87) 100 01/13/19 06:15 84 23 104/65 (78) 99 01/13/19 06:00 84 20 102/59 (73) 96 01/13/19 06:00 102/59 01/13/19 05:45 90 18 99/58 (72) 97 01/13/19 05:30 85 21 100/60 (73) 97 01/13/19 05:26 86 29 100 Facial 35 01/13/19 05:15 86 23 100/69 (79) 100 01/13/19 05:00 84 20 106/62 (77) 100 01/13/19 05:00 115/71 01/13/19 04:45 89 25 115/71 (86) 01/13/19 04:30 89 23 113/70 (84) 01/13/19 04:15 93 24 108/66 (80) 93 01/13/19 04:00 121/81 01/13/19 04:00 97.6 85 23 121/81 (94) 95 01/13/19 04:00 Bi-pap 01/13/19 03:45 87 21 101/71 (81) 96 01/13/19 03:30 83 20 96/54 (68) 99 01/13/19 03:15 81 14 100 Facial 35 01/13/19 03:15 84 21 86/58 (67) 99 01/13/19 03:00 95/61 01/13/19 03:00 85 21 95/61 (72) 97 01/13/19 02:45 84 21 91/55 (67) 99 01/13/19 02:30 84 21 95/60 (72) 97 01/13/19 02:26 90/53 01/13/19 02:15 83 20 90/53 (65) 99 01/13/19 02:00 83 18 96/53 (67) 98 01/13/19 02:00 96/53 01/13/19 01:45 91 20 95/70 (78) 99 01/13/19 01:30 85 25 103/59 (74) 100 01/13/19 01:26 85 19 99 Facial 35 01/13/19 01:15 83 23 103/79 (87) 99 01/13/19 01:00 87 22 109/78 (88) 97 01/13/19 01:00 109/78 01/13/19 00:45 86 22 98/74 (82) 97 01/13/19 00:30 89 21 97/75 (82) 99 01/13/19 00:21 Bi-pap 01/13/19 00:15 88 21 108/85 (93) 98 01/13/19 00:00 88 01/13/19 00:00 35 01/13/19 00:00 97/75 01/13/19 00:00 87 23 92/74 (80) 98 01/12/19 23:45 87 22 107/77 (87) 97 01/12/19 23:30 88 22 106/72 (83) 97 01/12/19 23:15 97.6 87 18 91/78 (82) 98 01/12/19 23:00 106/72 01/12/19 23:00 98.5 82 24 119/71 100 Bi-pap 10.0 35 01/12/19 23:00 80 19 99 Facial 35 01/12/19 22:34 84/45 01/12/19 22:34 84/45 01/12/19 21:10 98.6 82 20 84/45 100 Bi-pap 01/12/19 21:08 88 21 97 Facial 35 01/12/19 20:00 81 19 98 Facial 35 01/12/19 19:20 98.4 81 20 98/74 100 Venturi Mask 10.0 40 01/12/19 18:52 98.2 85 16 99/68 96 Venturi Mask 10.0 40 01/12/19 18:52 87 20 Venturi Mask Intake and Output 01/12/19 01/13/19 18:59 06:59 Intake Total 2000 ml 3050 ml Output Total 1 ml Balance 2000 ml 3049 ml Intake Oral 0 ml IV Total 2000 ml 3050 ml Output Urine Total 1 ml Laboratory Tests Test 01/12/19 19:30 01/12/19 20:24 01/13/19 04:19 Arterial Blood pH 7.315 (7.350-7.450) 7.460 (7.350-7.450) Arterial Blood Partial Pressure CO2 66.3 mmHg (35.0-45.0) *H 51.2 mmHg (35.0-45.0) H Arterial Blood Partial Pressure O2 227.8 mmHg (75.0-100.0) H 71.8 mmHg (75.0-100.0) L Arterial Blood HCO3 33.0 mmol/L (22.0-26.0) H 35.6 mmol/L (22.0-26.0) H Arterial Blood Oxygen Saturation 98.9 % (95-100) 94.1 % (95-100) L Arterial Blood Base Excess 5.6 (-2-2) H 10.4 (-2-2) *H Willian Test Positive Positive White Blood Count 7.5 K/UL (4.8-10.8) Red Blood Count 3.98 M/UL (4.70-6.10) L Hemoglobin 10.3 G/DL (14.2-18.0) L Hematocrit 33.9 % (42.0-52.0) L Mean Corpuscular Volume 85 FL (80-99) Mean Corpuscular Hemoglobin 26.0 PG (27.0-31.0) L Mean Corpuscular Hemoglobin Concent 30.4 G/DL (32.0-36.0) L Red Cell Distribution Width 20.7 % (11.6-14.8) H Platelet Count 182 K/UL (150-450) Mean Platelet Volume 5.7 FL (6.5-10.1) L Neutrophils (%) (Auto) 81.4 % (45.0-75.0) H Lymphocytes (%) (Auto) 10.4 % (20.0-45.0) L Monocytes (%) (Auto) 5.4 % (1.0-10.0) Eosinophils (%) (Auto) 2.4 % (0.0-3.0) Basophils (%) (Auto) 0.5 % (0.0-2.0) Sodium Level 148 MMOL/L (136-145) H Potassium Level 3.8 MMOL/L (3.5-5.1) Chloride Level 107 MMOL/L (98-107) Carbon Dioxide Level 34 MMOL/L (21-32) H Anion Gap 7 mmol/L (5-15) Blood Urea Nitrogen 20 mg/dL (7-18) H Creatinine 1.2 MG/DL (0.55-1.30) Estimat Glomerular Filtration Rate > 60 mL/min (>60) Glucose Level 119 MG/DL (74-106) H Calcium Level 8.7 MG/DL (8.5-10.1) Microbiology Date/Time Source Procedure Growth Status 01/12/19 19:50 Nasal Nares - Final Complete 01/12/19 19:50 Nasal Nares - Final Complete 01/12/19 20:02 Rectum Received Saul Chino MD Jan 13, 2019 18:45
--- NOTE | 2019-01-13 18:55 | NUR ---
NURSE NOTES: MD MAURO HERE TO SEE PT. WILL PLACE OWN ORDERS
--- NOTE | 2019-01-13 19:09 | Infectious Diseases Prog Note ---
Assessment/Plan Problems: (1) Pneumonia involving left lung Assessment & Plan: due to lung collapse, rule out mucous plug VS transbronchial mass , continue vancomycin dosed as per pharmacy and switch levaquin to meropenem empirically , send sputum culture . suctioning as needed. CT chest to further eval , may need bronchoscopy (2) UTI (urinary tract infection) Assessment & Plan: will start meropenem pending culture (3) Septic shock Assessment & Plan: due to the above, continue wide spectrum antibiotics and pressors as needed, check cortisol level (4) Lung collapse Assessment & Plan: mucous plug VS transbronchial mass , continue agressive suctioning and nebulizers, CT chest to further eval . may need bronchoscopy (5) AMS (altered mental status) Assessment & Plan: suspect metabolic due to the above , continue blood pressure support and wide spectrum antibiotics , monitor in ICU Subjective Allergies: Coded Allergies: PENICILLINS (Verified Allergy, Unknown, 01/12/19) Objective Vital Signs Last 24 Hour Vital Signs Date Time Temp Pulse Resp B/P (MAP) Pulse Ox O2 Delivery O2 Flow Rate FiO2 01/13/19 18:30 83 19 106/60 (75) 100 01/13/19 18:00 84 25 93/70 (78) 100 01/13/19 17:30 81 20 84/61 (69) 100 01/13/19 17:00 83 22 87/57 (67) 100 01/13/19 16:30 83 18 95/53 (67) 100 01/13/19 16:00 4.0 01/13/19 16:00 Bi-pap 01/13/19 16:00 98.0 84 21 83/53 (63) 100 01/13/19 16:00 83 01/13/19 15:30 83 19 89/64 (72) 100 01/13/19 15:14 88 23 100 Nasal Cannula 4.0 36 87 24 98 01/13/19 15:02 84 23 98 01/13/19 15:00 83 25 102/67 (79) 100 01/13/19 14:30 81 21 101/66 (78) 100 01/13/19 14:00 83 20 97/70 (79) 99 01/13/19 14:00 4.0 01/13/19 13:30 82 21 81/54 (63) 100 01/13/19 13:00 84 22 73/49 (57) 100 01/13/19 12:31 81 22 98 Full Face 35 01/13/19 12:30 84 20 86/49 (61) 97 01/13/19 12:00 98.6 87 19 94/60 (71) 98 01/13/19 12:00 Bi-pap 01/13/19 12:00 35 01/13/19 11:30 85 22 94/49 (64) 98 01/13/19 11:26 85 01/13/19 11:00 90 24 113/81 (92) 100 01/13/19 10:30 83 24 102/63 (76) 98 01/13/19 10:30 86 26 96 Facial 35 01/13/19 10:15 89 24 93/65 (74) 99 01/13/19 10:00 86 23 97/72 (80) 95 01/13/19 09:45 87 23 111/67 (82) 99 01/13/19 09:30 83 20 112/71 (85) 98 01/13/19 09:15 85 24 110/78 (89) 01/13/19 09:13 85 23 100 Facial 35 01/13/19 09:00 98.6 87 23 110/72 (85) 01/13/19 08:30 85 19 103/70 (81) 99 01/13/19 08:00 Bi-pap 01/13/19 08:00 82 18 97/67 (77) 98 01/13/19 08:00 35 01/13/19 08:00 84 01/13/19 07:30 84 23 104/55 (71) 100 01/13/19 07:00 86 21 107/63 (78) 100 01/13/19 06:50 88 19 100 Facial 35 01/13/19 06:45 86 20 107/64 (78) 99 01/13/19 06:30 84 21 111/75 (87) 100 01/13/19 06:15 84 23 104/65 (78) 99 01/13/19 06:00 84 20 102/59 (73) 96 01/13/19 06:00 102/59 01/13/19 05:45 90 18 99/58 (72) 97 01/13/19 05:30 85 21 100/60 (73) 97 01/13/19 05:26 86 29 100 Facial 35 01/13/19 05:15 86 23 100/69 (79) 100 01/13/19 05:00 84 20 106/62 (77) 100 01/13/19 05:00 115/71 01/13/19 04:45 89 25 115/71 (86) 01/13/19 04:30 89 23 113/70 (84) 01/13/19 04:15 93 24 108/66 (80) 93 01/13/19 04:00 121/81 01/13/19 04:00 97.6 85 23 121/81 (94) 95 01/13/19 04:00 Bi-pap 01/13/19 03:45 87 21 101/71 (81) 96 01/13/19 03:30 83 20 96/54 (68) 99 01/13/19 03:15 81 14 100 Facial 35 01/13/19 03:15 84 21 86/58 (67) 99 01/13/19 03:00 95/61 01/13/19 03:00 85 21 95/61 (72) 97 01/13/19 02:45 84 21 91/55 (67) 99 01/13/19 02:30 84 21 95/60 (72) 97 01/13/19 02:26 90/53 01/13/19 02:15 83 20 90/53 (65) 99 01/13/19 02:00 83 18 96/53 (67) 98 01/13/19 02:00 96/53 01/13/19 01:45 91 20 95/70 (78) 99 01/13/19 01:30 85 25 103/59 (74) 100 01/13/19 01:26 85 19 99 Facial 35 01/13/19 01:15 83 23 103/79 (87) 99 01/13/19 01:00 87 22 109/78 (88) 97 01/13/19 01:00 109/78 01/13/19 00:45 86 22 98/74 (82) 97 01/13/19 00:30 89 21 97/75 (82) 99 01/13/19 00:21 Bi-pap 01/13/19 00:15 88 21 108/85 (93) 98 01/13/19 00:00 88 01/13/19 00:00 35 10/19/19 00:00 97/75 01/13/19 00:00 87 23 92/74 (80) 98 01/12/19 23:45 87 22 107/77 (87) 97 01/12/19 23:30 88 22 106/72 (83) 97 01/12/19 23:15 97.6 87 18 91/78 (82) 98 01/12/19 23:00 106/72 01/12/19 23:00 98.5 82 24 119/71 100 Bi-pap 10.0 35 01/12/19 23:00 80 19 99 Facial 35 01/12/19 22:34 84/45 01/12/19 22:34 84/45 01/12/19 21:10 98.6 82 20 84/45 100 Bi-pap 01/12/19 21:08 88 21 97 Facial 35 01/12/19 20:00 81 19 98 Facial 35 01/12/19 19:20 98.4 81 20 98/74 100 Venturi Mask 10.0 40 Height (Feet): 5 Height (Inches): 7.00 Weight (Pounds): 178 Microbiology Date/Time Source Procedure Growth Status 01/12/19 19:50 Nasal Nares - Final Complete 01/12/19 19:50 Nasal Nares - Final Complete 01/12/19 20:02 Rectum Received Laboratory Tests Test 01/12/19 19:30 01/12/19 20:24 01/13/19 04:19 Arterial Blood pH 7.315 (7.350-7.450) 7.460 (7.350-7.450) Arterial Blood Partial Pressure CO2 66.3 mmHg (35.0-45.0) *H 51.2 mmHg (35.0-45.0) H Arterial Blood Partial Pressure O2 227.8 mmHg (75.0-100.0) H 71.8 mmHg (75.0-100.0) L Arterial Blood HCO3 33.0 mmol/L (22.0-26.0) H 35.6 mmol/L (22.0-26.0) H Arterial Blood Oxygen Saturation 98.9 % (95-100) 94.1 % (95-100) L Arterial Blood Base Excess 5.6 (-2-2) H 10.4 (-2-2) *H Willian Test Positive Positive White Blood Count 7.5 K/UL (4.8-10.8) Red Blood Count 3.98 M/UL (4.70-6.10) L Hemoglobin 10.3 G/DL (14.2-18.0) L Hematocrit 33.9 % (42.0-52.0) L Mean Corpuscular Volume 85 FL (80-99) Mean Corpuscular Hemoglobin 26.0 PG (27.0-31.0) L Mean Corpuscular Hemoglobin Concent 30.4 G/DL (32.0-36.0) L Red Cell Distribution Width 20.7 % (11.6-14.8) H Platelet Count 182 K/UL (150-450) Mean Platelet Volume 5.7 FL (6.5-10.1) L Neutrophils (%) (Auto) 81.4 % (45.0-75.0) H Lymphocytes (%) (Auto) 10.4 % (20.0-45.0) L Monocytes (%) (Auto) 5.4 % (1.0-10.0) Eosinophils (%) (Auto) 2.4 % (0.0-3.0) Basophils (%) (Auto) 0.5 % (0.0-2.0) Sodium Level 148 MMOL/L (136-145) H Potassium Level 3.8 MMOL/L (3.5-5.1) Chloride Level 107 MMOL/L (98-107) Carbon Dioxide Level 34 MMOL/L (21-32) H Anion Gap 7 mmol/L (5-15) Blood Urea Nitrogen 20 mg/dL (7-18) H Creatinine 1.2 MG/DL (0.55-1.30) Estimat Glomerular Filtration Rate > 60 mL/min (>60) Glucose Level 119 MG/DL (74-106) H Calcium Level 8.7 MG/DL (8.5-10.1) Current Medications Medications (Trade) Dose Ordered Sig/Frankie Route PRN Reason Start Time Stop Time Status Last Admin Dose Admin Acetylcysteine (Mucomyst) 200 mg Q6HRT HHN 01/13/19 19:00 02/12/19 18:59 Albuterol/ Ipratropium (Albuterol/ Ipratropium) 3 ml Q4HR PRN HHN Shortness of Breath 01/12/19 23:00 01/17/19 22:59 Albuterol/ Ipratropium (Albuterol/ Ipratropium) 3 ml Q4HRT HHN 01/13/19 15:00 01/18/19 14:59 01/13/19 15:04 Aspirin (Ecotrin) 81 mg DAILY ORAL 01/13/19 09:00 02/12/19 08:59 01/13/19 08:46 Dextrose 1,000 ml @ 50 mls/hr Q20H IV 01/13/19 15:00 02/12/19 14:59 01/13/19 16:25 Dextrose (Dextrose 50%) 25 ml Q30M PRN IV Hypoglycemia 01/12/19 23:00 02/11/19 22:59 Dextrose (Dextrose 50%) 50 ml Q30M PRN IV Hypoglycemia 01/12/19 23:00 02/11/19 22:59 Dobutamine HCl 250 ml @ 0 mls/hr Q24H IV 01/13/19 18:59 02/12/19 18:58 Hydromorphone HCl (Dilaudid) 1 mg Q4HR PRN SUBQ Severe Pain (Pain Scale 7-10) 01/12/19 23:00 01/19/19 22:59 01/13/19 10:47 Levofloxacin 150 ml @ 100 mls/hr Q24H IVPB 01/13/19 15:00 01/20/19 14:59 01/13/19 16:26 Metronidazole 100 ml @ 100 mls/hr Q8H IVPB 01/13/19 00:00 01/20/19 00:00 01/13/19 16:26 Ondansetron HCl (Zofran) 4 mg Q6H PRN IVP Nausea & Vomiting 01/12/19 23:00 02/11/19 22:59 Pantoprazole (Protonix) 40 mg DAILY ORAL 01/14/19 09:00 02/13/19 08:59 Rivaroxaban (Xarelto) 20 mg DAILY ORAL 01/14/19 09:00 02/13/19 08:59 Vancomycin HCl (Vanco rx to dose) 1 ea DAILY PRN MISC Per rx protocol 01/13/19 14:45 02/12/19 14:44 Vancomycin HCl 1 gm/Dextrose 275 ml @ 184 mls/hr Q12H IVPB 01/13/19 02:00 01/18/19 01:59 01/13/19 16:26 Chema Perry M.D. Jan 13, 2019 19:09
--- NOTE | 2019-01-13 19:16 | Consultation ---
History of Present Illness General Date patient seen: Jan 13, 2019 Time patient seen: 14:20 Chief Complaint: Altered Level of Consciousness Referring physician: Shahnaz Stein Reason for Consultation: left side pneumonia, with septic shock Present Illness HPI This is a 58-year-old male was [facility] to [facility] for hypoxemia and fall which happened yesterday at 1 PM , He also had colostomy complication after his fall and his colon was sticking out . Patient is DNR/DNI , comfort measures only. as per records from prison Patient sustained a fall out of his bed at unknown time and was found on the floor at 1 PM. Patient was found to be hypoxic saturating 80% on room air at that time. Patient's pulse oximetry improved with nonrebreather prior to arrival. Patient also noted to have protruding colon into colostomy bag. Patient unable to provide history due to nonverbal status. In ED he was hypotensive and tachycardic which was concerning for sepsis , his CXR showed left total lung collapse , concerning for pneumonia , so he was started on vancomycin, levaquin and metronidazole empirically, admitted to ICU, and infectious disease consult was requested for antibiotics treatment and further care Allergies: Coded Allergies: PENICILLINS (Verified Allergy, Unknown, 01/12/19) Medication History Unable to Obtain Active Prescriptions or Reported Meds Patient History Limited by: medical condition History Provided By: Medical Record, EMS Healthcare decision maker Piper Padilla dtr Resuscitation status Do Not Resuscitate Advanced Directive on File Past Medical/Surgical History Past Medical/Surgical History: (1) Pulmonary hypertension (2) Dementia (3) CHF (congestive heart failure) (4) Pacemaker (5) Paroxysmal atrial fibrillation (6) Colostomy in place Review of Systems Constitutional: Reports: weakness Eye: Reports: no symptoms ENT: Reports: no symptoms Respiratory: Reports: cough, shortness of breath Cardiovascular: Reports: no symptoms Gastrointestinal: Reports: other - colostomy complications Genitourinary: Reports: no symptoms Musculoskeletal: Reports: no symptoms Skin: Reports: other - pressure wounds Psychiatric: Reports: anxiety Neurological: Reports: syncope Endocrine: Reports: no symptoms Hematologic/Lymphatic: Reports: no symptoms Physical Exam General Appearance: WD/WN, no apparent distress, lethargic, confused Lines, tubes and drains: central line HEENT: normocephalic, atraumatic, anicteric, mucous membranes moist, PERRL Neck: non-tender, normal alignment, supple, normal inspection Respiratory/Chest: chest wall non-tender, no respiratory distress, no accessory muscle use, decreased breath sounds, crackles/rales Cardiovascular/Chest: normal peripheral pulses, normal rate, regular rhythm, no gallop/murmur, no JVD Abdomen: normal bowel sounds, non tender, soft, no organomegaly, no mass, abnormal bowel sounds Genitourinary/Rectal: normal genital exam, normal rectal exam Extremities: normal range of motion, non-tender, normal inspection, no calf tenderness, normal capillary refill Skin Exam: normal pigmentation, warm/dry Neurologic: alert, unresponsiveness Musculoskeletal: normal muscle bulk, no effusion Last 24 Hour Vital Signs Date Time Temp Pulse Resp B/P (MAP) Pulse Ox O2 Delivery O2 Flow Rate FiO2 01/13/19 18:30 83 19 106/60 (75) 100 01/13/19 18:00 84 25 93/70 (78) 100 01/13/19 17:30 81 20 84/61 (69) 100 01/13/19 17:00 83 22 87/57 (67) 100 01/13/19 16:30 83 18 95/53 (67) 100 01/13/19 16:00 4.0 01/13/19 16:00 Bi-pap 01/13/19 16:00 98.0 84 21 83/53 (63) 100 01/13/19 16:00 83 01/13/19 15:30 83 19 89/64 (72) 100 01/13/19 15:14 88 23 100 Nasal Cannula 4.0 36 87 24 98 01/13/19 15:02 84 23 98 01/13/19 15:00 83 25 102/67 (79) 100 01/13/19 14:30 81 21 101/66 (78) 100 01/13/19 14:00 83 20 97/70 (79) 99 01/13/19 14:00 4.0 01/13/19 13:30 82 21 81/54 (63) 100 01/13/19 13:00 84 22 73/49 (57) 100 01/13/19 12:31 81 22 98 Full Face 35 01/13/19 12:30 84 20 86/49 (61) 97 01/13/19 12:00 98.6 87 19 94/60 (71) 98 01/13/19 12:00 Bi-pap 01/13/19 12:00 35 01/13/19 11:30 85 22 94/49 (64) 98 01/13/19 11:26 85 01/13/19 11:00 90 24 113/81 (92) 100 01/13/19 10:30 83 24 102/63 (76) 98 01/13/19 10:30 86 26 96 Facial 35 01/13/19 10:15 89 24 93/65 (74) 99 01/13/19 10:00 86 23 97/72 (80) 95 01/13/19 09:45 87 23 111/67 (82) 99 01/13/19 09:30 83 20 112/71 (85) 98 01/13/19 09:15 85 24 110/78 (89) 01/13/19 09:13 85 23 100 Facial 35 01/13/19 09:00 98.6 87 23 110/72 (85) 01/13/19 08:30 85 19 103/70 (81) 99 01/13/19 08:00 Bi-pap 01/13/19 08:00 82 18 97/67 (77) 98 01/13/19 08:00 35 01/13/19 08:00 84 01/13/19 07:30 84 23 104/55 (71) 100 01/13/19 07:00 86 21 107/63 (78) 100 01/13/19 06:50 88 19 100 Facial 35 01/13/19 06:45 86 20 107/64 (78) 99 01/13/19 06:30 84 21 111/75 (87) 100 01/13/19 06:15 84 23 104/65 (78) 99 01/13/19 06:00 84 20 102/59 (73) 96 01/13/19 06:00 102/59 01/13/19 05:45 90 18 99/58 (72) 97 01/13/19 05:30 85 21 100/60 (73) 97 01/13/19 05:26 86 29 100 Facial 35 01/13/19 05:15 86 23 100/69 (79) 100 01/13/19 05:00 84 20 106/62 (77) 100 01/13/19 05:00 115/71 01/13/19 04:45 89 25 115/71 (86) 01/13/19 04:30 89 23 113/70 (84) 01/13/19 04:15 93 24 108/66 (80) 93 01/13/19 04:00 121/81 01/13/19 04:00 97.6 85 23 121/81 (94) 95 01/13/19 04:00 Bi-pap 01/13/19 03:45 87 21 101/71 (81) 96 01/13/19 03:30 83 20 96/54 (68) 99 01/13/19 03:15 81 14 100 Facial 35 01/13/19 03:15 84 21 86/58 (67) 99 01/13/19 03:00 95/61 01/13/19 03:00 85 21 95/61 (72) 97 01/13/19 02:45 84 21 91/55 (67) 99 01/13/19 02:30 84 21 95/60 (72) 97 01/13/19 02:26 90/53 01/13/19 02:15 83 20 90/53 (65) 99 01/13/19 02:00 83 18 96/53 (67) 98 01/13/19 02:00 96/53 01/13/19 01:45 91 20 95/70 (78) 99 01/13/19 01:30 85 25 103/59 (74) 100 01/13/19 01:26 85 19 99 Facial 35 01/13/19 01:15 83 23 103/79 (87) 99 01/13/19 01:00 87 22 109/78 (88) 97 01/13/19 01:00 109/78 01/13/19 00:45 86 22 98/74 (82) 97 01/13/19 00:30 89 21 97/75 (82) 99 01/13/19 00:21 Bi-pap 01/13/19 00:15 88 21 108/85 (93) 98 01/13/19 00:00 88 01/13/19 00:00 35 01/13/19 00:00 97/75 01/13/19 00:00 87 23 92/74 (80) 98 01/12/19 23:45 87 22 107/77 (87) 97 01/12/19 23:30 88 22 106/72 (83) 97 01/12/19 23:15 97.6 87 18 91/78 (82) 98 01/12/19 23:00 106/72 01/12/19 23:00 98.5 82 24 119/71 100 Bi-pap 10.0 35 01/12/19 23:00 80 19 99 Facial 35 01/12/19 22:34 84/45 01/12/19 22:34 84/45 01/12/19 21:10 98.6 82 20 84/45 100 Bi-pap 01/12/19 21:08 88 21 97 Facial 35 01/12/19 20:00 81 19 98 Facial 35 01/12/19 19:20 98.4 81 20 98/74 100 Venturi Mask 10.0 40 Intake and Output 01/12/19 01/13/19 18:59 06:59 Intake Total 2000 ml 3050 ml Output Total 1 ml Balance 2000 ml 3049 ml Intake Oral 0 ml IV Total 2000 ml 3050 ml Output Urine Total 1 ml Laboratory Tests Test 01/12/19 19:30 01/12/19 20:24 01/13/19 04:19 Arterial Blood pH 7.315 (7.350-7.450) 7.460 (7.350-7.450) Arterial Blood Partial Pressure CO2 66.3 mmHg (35.0-45.0) *H 51.2 mmHg (35.0-45.0) H Arterial Blood Partial Pressure O2 227.8 mmHg (75.0-100.0) H 71.8 mmHg (75.0-100.0) L Arterial Blood HCO3 33.0 mmol/L (22.0-26.0) H 35.6 mmol/L (22.0-26.0) H Arterial Blood Oxygen Saturation 98.9 % (95-100) 94.1 % (95-100) L Arterial Blood Base Excess 5.6 (-2-2) H 10.4 (-2-2) *H Willian Test Positive Positive White Blood Count 7.5 K/UL (4.8-10.8) Red Blood Count 3.98 M/UL (4.70-6.10) L Hemoglobin 10.3 G/DL (14.2-18.0) L Hematocrit 33.9 % (42.0-52.0) L Mean Corpuscular Volume 85 FL (80-99) Mean Corpuscular Hemoglobin 26.0 PG (27.0-31.0) L Mean Corpuscular Hemoglobin Concent 30.4 G/DL (32.0-36.0) L Red Cell Distribution Width 20.7 % (11.6-14.8) H Platelet Count 182 K/UL (150-450) Mean Platelet Volume 5.7 FL (6.5-10.1) L Neutrophils (%) (Auto) 81.4 % (45.0-75.0) H Lymphocytes (%) (Auto) 10.4 % (20.0-45.0) L Monocytes (%) (Auto) 5.4 % (1.0-10.0) Eosinophils (%) (Auto) 2.4 % (0.0-3.0) Basophils (%) (Auto) 0.5 % (0.0-2.0) Sodium Level 148 MMOL/L (136-145) H Potassium Level 3.8 MMOL/L (3.5-5.1) Chloride Level 107 MMOL/L (98-107) Carbon Dioxide Level 34 MMOL/L (21-32) H Anion Gap 7 mmol/L (5-15) Blood Urea Nitrogen 20 mg/dL (7-18) H Creatinine 1.2 MG/DL (0.55-1.30) Estimat Glomerular Filtration Rate > 60 mL/min (>60) Glucose Level 119 MG/DL (74-106) H Calcium Level 8.7 MG/DL (8.5-10.1) Microbiology Date/Time Source Procedure Growth Status 01/12/19 19:50 Nasal Nares - Final Complete 01/12/19 19:50 Nasal Nares - Final Complete 01/12/19 20:02 Rectum Received Height (Feet): 5 Height (Inches): 7.00 Weight (Pounds): 178 Medications Current Medications Medications (Trade) Dose Ordered Sig/Frankie Route PRN Reason Start Time Stop Time Status Last Admin Dose Admin Acetylcysteine (Mucomyst) 200 mg Q6HRT HHN 01/13/19 19:00 02/12/19 18:59 Albuterol/ Ipratropium (Albuterol/ Ipratropium) 3 ml Q4HR PRN HHN Shortness of Breath 01/12/19 23:00 01/17/19 22:59 Albuterol/ Ipratropium (Albuterol/ Ipratropium) 3 ml Q4HRT HHN 01/13/19 15:00 01/18/19 14:59 01/13/19 15:04 Aspirin (Ecotrin) 81 mg DAILY ORAL 01/13/19 09:00 02/12/19 08:59 01/13/19 08:46 Dextrose 1,000 ml @ 50 mls/hr Q20H IV 01/13/19 15:00 02/12/19 14:59 01/13/19 16:25 Dextrose (Dextrose 50%) 25 ml Q30M PRN IV Hypoglycemia 01/12/19 23:00 02/11/19 22:59 Dextrose (Dextrose 50%) 50 ml Q30M PRN IV Hypoglycemia 01/12/19 23:00 02/11/19 22:59 Dobutamine HCl 250 ml @ 0 mls/hr Q24H IV 01/13/19 18:59 02/12/19 18:58 Hydromorphone HCl (Dilaudid) 1 mg Q4HR PRN SUBQ Severe Pain (Pain Scale 7-10) 01/12/19 23:00 01/19/19 22:59 01/13/19 10:47 Levofloxacin 150 ml @ 100 mls/hr Q24H IVPB 01/13/19 15:00 01/20/19 14:59 01/13/19 16:26 Metronidazole 100 ml @ 100 mls/hr Q8H IVPB 01/13/19 00:00 01/20/19 00:00 01/13/19 16:26 Ondansetron HCl (Zofran) 4 mg Q6H PRN IVP Nausea & Vomiting 01/12/19 23:00 02/11/19 22:59 Pantoprazole (Protonix) 40 mg DAILY ORAL 01/14/19 09:00 02/13/19 08:59 Rivaroxaban (Xarelto) 20 mg DAILY ORAL 01/14/19 09:00 02/13/19 08:59 Vancomycin HCl (Vanco rx to dose) 1 ea DAILY PRN MISC Per rx protocol 01/13/19 14:45 02/12/19 14:44 Vancomycin HCl 1 gm/Dextrose 275 ml @ 184 mls/hr Q12H IVPB 01/13/19 02:00 01/18/19 01:59 01/13/19 16:26 Assessment/Plan Problem List: (1) Pneumonia involving left lung Assessment & Plan: due to lung collapse, rule out mucous plug VS transbronchial mass , continue vancomycin dosed as per pharmacy and switch levaquin to meropenem empirically , send sputum culture . suctioning as needed. CT chest to further eval , may need bronchoscopy ICD Codes: J18.9 - Pneumonia, unspecified organism SNOMED: 384770939 Qualifiers: Qualified Codes: J69.0 - Pneumonitis due to inhalation of food and vomit (2) UTI (urinary tract infection) Assessment & Plan: will start meropenem pending culture ICD Codes: N39.0 - Urinary tract infection, site not specified SNOMED: 95668789 Qualifiers: Qualified Codes: N30.00 - Acute cystitis without hematuria (3) Septic shock Assessment & Plan: due to the above, continue wide spectrum antibiotics and pressors as needed, check cortisol level ICD Codes: A41.9 - Sepsis, unspecified organism; R65.21 - Severe sepsis with septic shock SNOMED: 40402245 (4) Lung collapse Assessment & Plan: mucous plug VS transbronchial mass , continue agressive suctioning and nebulizers, CT chest to further eval . may need bronchoscopy ICD Codes: J98.19 - Other pulmonary collapse SNOMED: 36601343 (5) AMS (altered mental status) Assessment & Plan: suspect metabolic due to the above , continue blood pressure support and wide spectrum antibiotics , monitor in ICU ICD Codes: R41.82 - Altered mental status, unspecified SNOMED: 090484765 Qualifiers: Qualified Codes: R41.0 - Disorientation, unspecified Status: not improved Chema Perry M.D. Jan 13, 2019 19:16
--- NOTE | 2019-01-13 19:30 | NUR ---
HAND-OFF: Report given to MICHAEL RINALDI. ENDORSED DOBUTAMINE, F/U FOR 2 D ECHO
[2019-01-13] MEDS: Acetylcysteine 20% Soln 4ml HHN SCH ×2 (19:41→23:45)
[2019-01-13] MEDS: DOBUTamine 250mg/250ml Premix 250 ML IV SCH (19:58)
--- NOTE | 2019-01-13 20:00 | NUR ---
NURSE NOTES: Received pt in no acute distress. Sleepy but arousable to name. Responds appropriately when spoken to in [place]. Restless and moves right hand/arm purposefully. Left arm flaccid. AICD noted on left upper chest and pacing intermittently, BP in the low to mid 90's systolic.Right IJ TLC intact, IVF of D5W infusing at 50ml/h. Remains NPO. Urinary pouch intact. LLQ colostomy intact, stoma edematous but pinkish, stool semi soft, greenish brown. Right eyebrow sutures noted. Left soft wrist restraint in place. Dobutamine gtt started a 2mcg/kg/min. Will titrate to keep SBP>90 and DC levophed. Continue to monitor
[2019-01-13] MEDS: Meropenem 1 GM in NS 55 ML IVPB SCH (21:31)
--- NOTE | 2019-01-13 22:10 | NUR ---
NURSE NOTES: Pt restless and moaning. Dilaudid 1mg subcut given. Urinary pouch leaked. Replaced and underpad changed.
--- NOTE | 2019-01-13 22:58 | NUR ---
RESPIRATORY NOTE: Pt placed on BiPAP for nightly use. Pt now on BiPAP /, backup rate 14, 35%. Pt on a Facial mask, skin intact, no redness/breakdowns noted. Foam tape applied on pt's nosebridge/cheeks to prevent irritations. Pt is alert/awake, follows commandfs. b/S meredith. clear/diminished, nonproductive cough. BiPAP plugged into red outlet, alarms on & audible. Pt comfortable, in no apparent distress at this time. Will continue plan of care.
--- NOTE | 2019-01-13 22:58 | NUR ---
NURSE NOTES: RT placed pt back on the Bipap at 12/5 fiO2 .35. Pt slept after being placed on the Bipap.
--- NOTE | 2019-01-13 23:30 | NUR ---
NURSE NOTES: BP dropped to 83/53. Pt asleep. Dobutamine increased to 7mcg/kg/min. Will continue to monitor
--- NOTE | 2019-01-13 23:45 | History and Physical Report ---
DATE OF ADMISSION: 01/12/2019 SOURCE OF INFORMATION: EMR. HISTORY OF PRESENT ILLNESS: The patient is a 58-year-old male. He reportedly had been in the DNR on hospice and given the of the circumstances, the patient was admitted to by the family to be transferred to the hospital for continuation of care. The patient currently is in respiratory distress. He is a poor historian. The patient has been admitted with significantly low blood pressure, systolic blood pressure ranging from 90-95, and given the respiratory distress, the patient had been transferred to the intensive care unit. At the time of evaluation, the patient is in respiratory distress. The patient is currently on BiPAP. The patient is moving all four extremities. He is agitated. ALLERGIES: To penicillin. PAST MEDICAL HISTORY: On hospice care secondary to chronic debility. Limited information. Remainder of information not available. CURRENT HOSPITAL MEDICATIONS: Including aspirin, Lovenox, Flagyl, vancomycin. DIAGNOSTIC DATA: Chest x-ray dated January 12, 2019 shows large left-sided pleural effusion, AICD in place, and right lower lobe opacity. CT scan of the head unremarkable for any acute pathology. PHYSICAL EXAMINATION:VITAL SIGNS: Blood pressure of 100/80, temperature 98.2, pulse oximetry 98% on room air, pulse rate 92.HEAD AND NECK: Atraumatic and normocephalic. CHEST: diffuse bronchial bs.HEART: S1, S2. Regular rate and rhythm. ABDOMEN: Soft. No organomegaly.MUSCULOSKELETAL: No gross lateralized motor deficit. NEUROLOGY: The patient is delirious, limied exam ASSESSMENT AND PLAN: 1. Acute respiratory failure. 2. Sepsis secondary to healthcare-associated pneumonia. 3. CVA, history of left-sided territory involvement. 4. Anemia. 5. Cardiomyopathy. 6. Hypernatremia. 7. GI and DVT prophylaxis. 8. DNR and DNI. PLAN OF CARE: The patient remains in critical condition. I agree with ICU admission. Initially, the patient was admitted to a stepdown. Continue with empiric antibiotic treatment. Infectious Disease, Pulmonary, Nephrology have been consulted. We will continue. COMMENT: The time of this dictation does not reflect the actual time of encounter. Preston Geiger M.D. DR: SARA JOB#: [id number] CC: MATHIEU
[2019-01-14] VITALS (37 sets, daily range): BP systolic 80–118; BP diastolic 50–83
--- NOTE | 2019-01-14 01:00 | NUR ---
NURSE NOTES: Bp 84/54. Increased Dobutamine gtt to 10mcg/kg/min. Will monitor VS Q15min till stable.Pt asleep
[2019-01-14] MEDS: DOBUTamine 250mg/250ml Premix 250 ML IV SCH ×3 (02:16→08:16)
[2019-01-14] MEDS: Vancomycin 1 GM in D5W 275 ML IVPB SCH (02:16)
--- NOTE | 2019-01-14 03:00 | NUR ---
NURSE NOTES: Continues to sleep with the Bipap. No distress. BP stable. Dobutamine gtt at 10mcg/kg/min. Right IJ TLC dressing changed
[2019-01-14] MEDS: Albuterol/Ipratropium 3ml neb HHN SCH ×3 (03:15→20:23)
--- NOTE | 2019-01-14 05:00 | NUR ---
NURSE NOTES: Calm, quiet, asleep. AM care rendered. Right soft wrist restraint renewed at 0400. Dobutamine gtt continues at 10mcg/kg/min. BP stable. Urinary pouch intact. No colostomy output
[2019-01-14] MEDS: Meropenem 1 GM in NS 55 ML IVPB SCH ×3 (05:58→21:39)
[2019-01-14] MEDS: Acetylcysteine 20% Soln 4ml HHN SCH ×3 (06:39→20:23)
--- NOTE | 2019-01-14 07:12 | NUR ---
HAND-OFF: Report given to Beulah RINALDI.
--- NOTE | 2019-01-14 07:30 | NUR ---
NURSE NOTES: Received the patient from [facility]. Patient is awake, confused, [place] speaking. communicated with [place] speaking staff. Patient is on 2L O2 via NC. O2 sat 100%. No acute distress noted. AICD noted on left upper chest, pace rhythm noted on compliance monitor. Colostomy intact, protruding colon noted, greenish/brown stool noted in colostomy bag. External male urinary pouch intact. Patient kept NPO. Left side weakness noted. Patient on right wrist restraint. No skin breakdown noted. Pulses present. Right IJ TLC noted, dressing intact, clean and dry, running D5W at 50ml/hr and Dobutamine at 10mcg/kg/min. Right AC 20G intact, asymptomatic. Right eyebrow sutures intact, no drainage noted. Bed in lowest position, locked, side rails upx3. Bed alarm on. Call light within reach. Will continue to monitor.
[2019-01-14] MEDS: Aspirin EC 81mg tab ORAL SCH (08:16)
--- NOTE | 2019-01-14 08:48 | NUR ---
RD ASSESSMENT & RECOMMENDATIONS SEE CARE ACTIVITY FOR COMPLETE ASSESSMENT DAILY ESTIMATED NEEDS: Needs based on Pulmonary, sepsis 71kg adj 25-30 kcals/kg 9211-2775 total kcals 1-1.5 g protein/kg 71-107 g total protein 25-30 mL/kg 5090-0522 total fluid mLs NUTRITION DIAGNOSIS: Increased kcal and pro needs r/t sepsis secondary to healthcare-associated pneumonia as evidenced by pt w/ low BP on pressor support, on bipap, w/ critically elev pCO2, now trending down. CURRENT DIET: NPO PO DIET RECOMMENDATIONS: Soft/ regular diet (texture per TECHNICAL MARKETING CONSULTANT) ENTERAL NUTRITION RECOMMENDATIONS: As needed, rec Glucerna 1.2 @60ml/hr x24 hrs to provide 1440ml, 1728 kcal, 86g pro, 1159ml free H2o - as medically needed w/ hemodynamic stability, rec non oral feeds to meet est nutritional needs - Obtain GI access, initiate TF @low rate 20ml/hr x6 hrs. Advance as tolerated 10ml/hr q4-6 hrs to goal. - Flush per MD, HOB over 30 degrees ADDITIONAL RECOMMENDATIONS: 1) Monitor respiratory status / need for non oral feeds Rec TECHNICAL MARKETING CONSULTANT eval for texture when appropriate for oral diet 2) Obtain calibrated bed scale wts 3) Monitor hydration status/ lytes (elev Na) 4) F/up w/ WC eval (photos L back + sacral)
[2019-01-14] MEDS ORDERED: Xarelto 10mg tab ORAL SCH (09:00)
--- NOTE | 2019-01-14 09:40 | NUR ---
NURSE NOTES: patient was turned and repositioned. VSS. Patient kept clean and dry. Patient awake, slightly restless at times. Oral care provided.
--- NOTE | 2019-01-14 10:08 | General Progress Note ---
Assessment/Plan Status: not improved Assessment/Plan: S: not verbal O: seem comfortable. poor historian, delirious. On Nasal canula, Leon. on soft restraint PHYSICAL EXAMINATION:HEAD AND NECK: Atraumatic and normocephalic. CHEST: diffuse bronchial bs.HEART: S1, S2. Regular rate and rhythm. ABDOMEN: Soft. No organomegaly.MUSCULOSKELETAL: No gross lateralized motor deficit. NEUROLOGY: The patient is delirious, limied exam Meds and labs dated Jan 14 reviewed ASSESSMENT AND PLAN: 1. Acute respiratory failure. 2. Sepsis secondary to healthcare-associated UTI/pneumonia. 3. CVA, history of left-sided territory involvement. 4. Anemia. 5. Cardiomyopathy. 6. Hypernatremia. 7. GI and DVT prophylaxis. 8. DNR and DNI. PLAN OF CARE: NOtes from Pulmonary, ID, Nephro, are rearview current empirical abx Subjective Allergies: Coded Allergies: PENICILLINS (Verified Allergy, Unknown, 01/12/19) Objective Last 24 Hour Vital Signs Date Time Temp Pulse Resp B/P (MAP) Pulse Ox O2 Delivery O2 Flow Rate FiO2 01/14/19 09:30 92 21 117/67 (84) 100 01/14/19 09:00 85 24 99/55 (70) 93 01/14/19 08:30 88 21 113/83 (93) 100 01/14/19 08:09 95/68 01/14/19 08:00 Bi-pap 01/14/19 08:00 80 01/14/19 08:00 98.0 82 22 95/68 (77) 93 01/14/19 07:38 100 Nasal Cannula 2.0 28 01/14/19 07:30 81 18 95/61 (72) 95 01/14/19 07:00 83 18 107/66 (80) 100 01/14/19 06:54 87 17 100 Nasal Cannula 2.0 28 92 32 100 01/14/19 06:38 92 18 100 01/14/19 06:00 84 16 111/72 (85) 100 01/14/19 05:30 82 17 87/63 (71) 100 01/14/19 05:22 82 19 100 Facial 35 01/14/19 05:00 80 16 90/63 (72) 99 01/14/19 04:30 81 16 96/67 (77) 99 01/14/19 04:00 97.8 82 19 97/64 (75) 99 01/14/19 04:00 Bi-pap 01/14/19 04:00 80 01/14/19 03:30 81 17 99/69 (79) 100 01/14/19 03:25 82 18 100 Bi-Pap 35 01/14/19 03:15 80 26 100 Facial 35 01/14/19 03:15 80 26 100 Bi-Pap 35 01/14/19 03:00 81 19 97/63 (74) 01/14/19 02:30 83 19 102/63 (76) 99 01/14/19 02:16 94/60 01/14/19 02:00 81 22 92/71 (78) 01/14/19 01:45 81 15 100/51 (67) 01/14/19 01:35 82 17 99 Facial 35 01/14/19 01:30 81 21 90/50 (63) 01/14/19 01:15 82 18 101/55 (70) 100 01/14/19 01:00 82 16 82/54 (63) 01/14/19 00:45 80 15 87/57 (67) 98 01/14/19 00:30 80 15 80/54 (63) 98 01/14/19 00:15 81 16 82/51 (61) 97 01/14/19 00:06 80 01/14/19 00:03 Bi-pap 01/14/19 00:00 35 01/14/19 00:00 80 17 100 Bi-Pap 35 01/14/19 00:00 97.6 80 17 93/50 (64) 98 01/13/19 23:45 84 17 91/57 (68) 100 01/13/19 23:45 86 20 98 Bi-Pap 35 01/13/19 23:30 81 14 83/53 (63) 96 01/13/19 23:00 82 16 102/72 (82) 91 01/13/19 22:56 80 22 96 Facial 35 01/13/19 22:30 81 21 93/59 (70) 98 01/13/19 22:00 82 24 101/56 (71) 86 01/13/19 21:30 81 25 98/62 (74) 100 01/13/19 21:00 81 24 99/70 (80) 100 01/13/19 20:45 84 24 97/64 (75) 98 01/13/19 20:30 82 25 91/77 (82) 100 01/13/19 20:15 84 24 98/58 (71) 99 01/13/19 20:00 85 21 94/74 (81) 98 01/13/19 20:00 Nasal Cannula 4.0 01/13/19 20:00 83 01/13/19 19:58 99/67 01/13/19 19:55 91 24 100 Nasal Cannula 4.0 36 01/13/19 19:45 82 21 99/77 (84) 100 01/13/19 19:40 97 Nasal Cannula 4.0 36 01/13/19 19:40 82 17 97 Nasal Cannula 4.0 36 01/13/19 19:30 97.6 90 27 108/65 (79) 98 01/13/19 19:15 88 22 107/57 (74) 98 01/13/19 19:00 88 22 100/72 (81) 99 01/13/19 18:30 83 19 106/60 (75) 100 01/13/19 18:00 84 25 93/70 (78) 100 01/13/19 17:30 81 20 84/61 (69) 100 01/13/19 17:00 83 22 87/57 (67) 100 01/13/19 16:30 83 18 95/53 (67) 100 01/13/19 16:00 4.0 01/13/19 16:00 Bi-pap 01/13/19 16:00 98.0 84 21 83/53 (63) 100 01/13/19 16:00 83 01/13/19 15:30 83 19 89/64 (72) 100 01/13/19 15:14 88 23 100 Nasal Cannula 4.0 36 87 24 98 01/13/19 15:02 84 23 98 01/13/19 15:00 83 25 102/67 (79) 100 01/13/19 14:30 81 21 101/66 (78) 100 01/13/19 14:00 83 20 97/70 (79) 99 01/13/19 14:00 4.0 01/13/19 13:30 82 21 81/54 (63) 100 01/13/19 13:00 84 22 73/49 (57) 100 01/13/19 12:31 81 22 98 Full Face 35 01/13/19 12:30 84 20 86/49 (61) 97 01/13/19 12:00 98.6 87 19 94/60 (71) 98 01/13/19 12:00 Bi-pap 01/13/19 12:00 35 01/13/19 11:30 85 22 94/49 (64) 98 01/13/19 11:26 85 01/13/19 11:00 90 24 113/81 (92) 100 01/13/19 10:30 83 24 102/63 (76) 98 01/13/19 10:30 86 26 96 Facial 35 01/13/19 10:15 89 24 93/65 (74) 99 Intake and Output 01/13/19 01/14/19 19:00 07:00 Intake Total 2418.00 ml 1440.365 ml Output Total 200 ml Balance 2418.00 ml 1240.365 ml Intake Oral 0 ml 0 ml IV Total 2418.00 ml 1440.365 ml Output Urine Total 200 ml # Voids 310 # Bowel Movements 6 Height (Feet): 5 Height (Inches): 7.00 Weight (Pounds): 182 Preston Geiger MD Jan 14, 2019 10:08
[2019-01-14] MEDS ORDERED: Albuterol/Ipratropium 3ml neb HHN PRN ×3 (11:00→13:16)
--- NOTE | 2019-01-14 11:30 | NUR ---
NURSE NOTES: Patient awake, confused, restless. Patient attempted to pull out right IJ TLC. Patient on right wrist restraint. No skin breakdown noted. pulses present. will continue to monitor. bed alarm on.
--- NOTE | 2019-01-14 12:18 | Consultation ---
Consult Note Consult Note asked to eval at the request of Dr Geiger ER: 58-year-old male sent in from halfway for hypoxia, fall 1 PM today, and colostomy complication. Patient is DNR/DNI, comfort measures only. Patient is nonverbal history taken from halfway paperwork and report by EMS. Patient sustained a fall out of his bed today at unknown time was found on the floor at 1 PM. Patient was found to be hypoxic saturating 80% on room air at that time. Patient's pulse ox improved with nonrebreather prior to arrival. As per paperwork patient also noted to have protruding colon into colostomy bag. Patient unable to provide history due to nonverbal status. Allergies: Coded Allergies: PENICILLINS (Verified Allergy, Unknown, 01/12/19) examined data reviewed discussed with RN . Assessment/Plan UTI Proteinuria Cardiomyopathy low Ej Fx, CHF Hypoxia Encephalopathy Pulmonary hypertension H/O: stroke Colostomy in place Pacemaker Paroxysmal atrial fibrillation Healthcare-associated pneumonia Lung collapse Pulmonary support Stablize cardiac status Monitor lytes and renal parameters Per consultants Migel Baltazar MD Jan 14, 2019 12:18
--- NOTE | 2019-01-14 12:43 | Pulmonolgy Critical Care Note ---
Critical Care - Asmt/Plan Problems: (1) Hypoxia (2) AMS (altered mental status) (3) Pulmonary hypertension (4) Dementia (5) H/O: stroke (6) Colostomy in place (7) Pacemaker (8) CHF (congestive heart failure) (9) Paroxysmal atrial fibrillation (10) Encephalopathy (11) SIRS (systemic inflammatory response syndrome) (12) Healthcare-associated pneumonia (13) Lung collapse Assessment/Plan: Optimize pulmonary hygiene/mobilize as tolerated PRN BiPAP Titrate FiO2 to keep SaO2 > 90% RTC and PRN DUOnebs Mucomyst CPT CT chest Ana/Vanco per ID, F/U Cx's Titrate Dobut to keep MAP > 60 Monitor volumes and renal function, continue D5W@50 Aspiration precautions, [employer] eval Monitor MS DVT Px: NOAC DNAR, continue to discuss GOC 35 min CCT D/W RN @ bedside Critical Care - Objective Last 24 Hour Vital Signs Date Time Temp Pulse Resp B/P (MAP) Pulse Ox O2 Delivery O2 Flow Rate FiO2 01/14/19 12:30 86 23 111/67 (82) 100 01/14/19 12:15 91 21 104/70 (81) 100 01/14/19 12:00 Nasal Cannula 2.0 01/14/19 12:00 98.6 84 20 118/69 (85) 100 01/14/19 11:45 84 22 110/68 (82) 100 01/14/19 11:30 82 19 100/65 (77) 97 01/14/19 11:15 84 24 104/73 (83) 97 01/14/19 11:00 83 24 112/66 (81) 100 01/14/19 10:45 82 23 97/55 (69) 100 01/14/19 10:30 86 24 112/76 (88) 99 01/14/19 10:00 94 20 108/62 (77) 96 01/14/19 09:30 92 21 117/67 (84) 100 01/14/19 09:00 85 24 99/55 (70) 93 01/14/19 08:30 88 21 113/83 (93) 100 01/14/19 08:09 95/68 01/14/19 08:00 Bi-pap 01/14/19 08:00 80 01/14/19 08:00 98.0 82 22 95/68 (77) 93 01/14/19 07:38 100 Nasal Cannula 2.0 28 01/14/19 07:30 81 18 95/61 (72) 95 01/14/19 07:00 83 18 107/66 (80) 100 01/14/19 06:54 87 17 100 Nasal Cannula 2.0 28 92 32 100 01/14/19 06:38 92 18 100 01/14/19 06:00 84 16 111/72 (85) 100 01/14/19 05:30 82 17 87/63 (71) 100 01/14/19 05:22 82 19 100 Facial 35 01/14/19 05:00 80 16 90/63 (72) 99 01/14/19 04:30 81 16 96/67 (77) 99 01/14/19 04:00 97.8 82 19 97/64 (75) 99 01/14/19 04:00 Bi-pap 01/14/19 04:00 80 01/14/19 03:30 81 17 99/69 (79) 100 01/14/19 03:25 82 18 100 Bi-Pap 35 01/14/19 03:15 80 26 100 Facial 35 01/14/19 03:15 80 26 100 Bi-Pap 35 01/14/19 03:00 81 19 97/63 (74) 01/14/19 02:30 83 19 102/63 (76) 99 01/14/19 02:16 94/60 01/14/19 02:00 81 22 92/71 (78) 01/14/19 01:45 81 15 100/51 (67) 01/14/19 01:35 82 17 99 Facial 35 01/14/19 01:30 81 21 90/50 (63) 01/14/19 01:15 82 18 101/55 (70) 100 01/14/19 01:00 82 16 82/54 (63) 01/14/19 00:45 80 15 87/57 (67) 98 01/14/19 00:30 80 15 80/54 (63) 98 01/14/19 00:15 81 16 82/51 (61) 97 01/14/19 00:06 80 01/14/19 00:03 Bi-pap 01/14/19 00:00 35 01/14/19 00:00 80 17 100 Bi-Pap 35 01/14/19 00:00 97.6 80 17 93/50 (64) 98 01/13/19 23:45 84 17 91/57 (68) 100 01/13/19 23:45 86 20 98 Bi-Pap 35 01/13/19 23:30 81 14 83/53 (63) 96 01/13/19 23:00 82 16 102/72 (82) 91 01/13/19 22:56 80 22 96 Facial 35 01/13/19 22:30 81 21 93/59 (70) 98 01/13/19 22:00 82 24 101/56 (71) 86 01/13/19 21:30 81 25 98/62 (74) 100 01/13/19 21:00 81 24 99/70 (80) 100 01/13/19 20:45 84 24 97/64 (75) 98 01/13/19 20:30 82 25 91/77 (82) 100 01/13/19 20:15 84 24 98/58 (71) 99 01/13/19 20:00 85 21 94/74 (81) 98 01/13/19 20:00 Nasal Cannula 4.0 01/13/19 20:00 83 01/13/19 19:58 99/67 01/13/19 19:55 91 24 100 Nasal Cannula 4.0 36 01/13/19 19:45 82 21 99/77 (84) 100 01/13/19 19:40 97 Nasal Cannula 4.0 36 01/13/19 19:40 82 17 97 Nasal Cannula 4.0 36 01/13/19 19:30 97.6 90 27 108/65 (79) 98 01/13/19 19:15 88 22 107/57 (74) 98 01/13/19 19:00 88 22 100/72 (81) 99 01/13/19 18:30 83 19 106/60 (75) 100 01/13/19 18:00 84 25 93/70 (78) 100 01/13/19 17:30 81 20 84/61 (69) 100 01/13/19 17:00 83 22 87/57 (67) 100 01/13/19 16:30 83 18 95/53 (67) 100 01/13/19 16:00 4.0 01/13/19 16:00 Bi-pap 01/13/19 16:00 98.0 84 21 83/53 (63) 100 01/13/19 16:00 83 01/13/19 15:30 83 19 89/64 (72) 100 01/13/19 15:14 88 23 100 Nasal Cannula 4.0 36 87 24 98 01/13/19 15:02 84 23 98 01/13/19 15:00 83 25 102/67 (79) 100 01/13/19 14:30 81 21 101/66 (78) 100 01/13/19 14:00 83 20 97/70 (79) 99 01/13/19 14:00 4.0 01/13/19 13:30 82 21 81/54 (63) 100 01/13/19 13:00 84 22 73/49 (57) 100 Status: awake, other - confused Lungs: rhonchi - R, other - dec BS : Heart: HR/BP unstable Abdomen: soft, non-tender, active bowel sounds Extremities: no C/C/E Micro: Microbiology Date/Time Source Procedure Growth Status 01/12/19 16:30 Blood Blood Culture - Preliminary NO GROWTH AFTER 24 HOURS Resulted 01/12/19 16:15 Blood Blood Culture - Preliminary NO GROWTH AFTER 24 HOURS Resulted 01/12/19 20:02 Nasal Nares MRSA Culture - Final Staphylococcus Aureus - Mrsa Complete 01/12/19 19:50 Nasal Nares - Final Complete 01/12/19 19:50 Nasal Nares - Final Complete 01/12/19 20:02 Rectum Received Blood Sugars: BS controlled Critical Care - Subjective ROS Limited/Unobtainable: Yes ICU Day: 2 Interval Events: Awake confused on NC Condition: improving IV Access: central EKG Rhythm: V-Paced FI02: 28 Vent Support Mode: BiLevel Sputum Amount: None I&O: Intake and Output 01/13/19 01/14/19 19:00 07:00 Intake Total 2418.00 ml 1440.365 ml Output Total 200 ml Balance 2418.00 ml 1240.365 ml Intake Oral 0 ml 0 ml IV Total 2418.00 ml 1440.365 ml Output Urine Total 200 ml # Voids 310 # Bowel Movements 6 Subjective: Denies cough or SOB no FC CXR: Slight improved aeration James Mccauley MD Jan 14, 2019 12:43
--- NOTE | 2019-01-14 12:50 | NUR ---
NURSE NOTES: patient seen by Dr. Maynard. updated MD on pt's condition. Okay to dc dobutamine and transfer the patient to tele per MD. Dobutamine was discontinued. VSS.
[2019-01-14] MEDS ORDERED: Albuterol/Ipratropium 3ml neb HHN SCH (13:00)
[2019-01-14] MEDS ORDERED: HYDROmorphone 1mg/ml Carpuject SUBQ PRN (13:15)
--- NOTE | 2019-01-14 13:45 | NUR ---
TRANSFER TO FLOOR: Patient transferred to [facility]. Report given to NIMCO Rosario. Patient has no belongings and medications given to primary RN. Patient's sister, Pipre, informed of transfer.
--- NOTE | 2019-01-14 13:50 | NUR ---
NURSE NOTES: Received report from NIMCO Uribe. Patient transferred from ICU to [facility], no belongings. Patient on condom catheter was endorsed last urine output 10ml at 1100, will check bladder for retention. Patient on 2L oxygen via NC, IV on right AC 20G, right IJ, asymptomatic, patent, intact, IV fluid running as prescribed rate. Skin assessed, open wound on sacral, left upper back, Optifoam applied, skin tear on left FA, right mccoy, suture on right eyebrow, no drainage, no redness, no s/s infection, open to air. Patient on right wrist soft restraint, cap refill <3 sec, able to move. Patient on colostomy bag, stoma protruding, edematous, endorsed MD aware. Bed in lowest position, side rails upx3, call light within reach. Will continue to monitor.
[2019-01-14] MEDS ORDERED: Vancomycin 1 GM in D5W 275 ML IVPB SCH (14:00)
--- NOTE | 2019-01-14 15:19 | NUR ---
NURSE NOTES: Paged Dr. Geiger regarding result of bladder scanner. Last urine output 10ml at 1100 per [employer], bladder scanner done 688ml. Awaiting for callback.
[2019-01-14] MEDS: Lisinopril 2.5mg tab ORAL SCH (15:46)
[2019-01-14] MEDS: Vancomycin 1.25gm/NS Premix q24h IVPB SCH (15:46)
--- NOTE | 2019-01-14 16:06 | NUR ---
NURSE NOTES: Paged Dr. Geiger 2nd time for result of bladder scanner. Awaiting for callback.
--- NOTE | 2019-01-14 16:36 | NUR ---
NURSE NOTES: Per Dr. Geiger, put Leon Catheter in and flomax 0.4mg daily PO. Order noted, entered, carried out.
--- NOTE | 2019-01-14 17:43 | NUR ---
NURSE NOTES: Dr. Perry made aware of patient positive MRSA nares. Per MD, contact isolation. Order noted, entered, carried out.
--- NOTE | 2019-01-14 18:51 | NUR ---
NURSE NOTES: Dr. Chino made aware patient at 1847 having 7 beats of V-tach, now V paced with HR 86. No order at this time. Will continue to monitor.
--- NOTE | 2019-01-14 19:01 | NUR ---
NURSE NOTES: Per Dr. Chino, patient DNR/DNI, no need to notified regarding these episodes(V-tach), check STAT Mg level, give Mg sulfate 1g IVPB once. Order noted, entered, carried out.
--- NOTE | 2019-01-14 19:32 | NUR ---
HAND-OFF: Report given to NIMCO Christensen.
--- NOTE | 2019-01-14 19:35 | NUR ---
NURSE NOTES: Received report from Abraham RINALDI. Pt is in the bed. No acute distress noted. Bed rails are up x3. Bed alarm is on. Bed is locked at the lowest position. Pt is on right soft wrist restraint per MD order. AM shift placed beach catheter. Some urine noted in the bag. Per Nurse beach already got drained for the shift. MD was endorsed that pt has a protruded stoma. Some BM noted in the bag.
[2019-01-14] MEDS ORDERED: Dyna-Hex 2% Top Sol 2oz TOPIC SCH (20:00)
[2019-01-14] MEDS: Tamsulosin 0.4mg cap ORAL SCH (20:45)
[2019-01-14] MEDS: Dyna-Hex 2% Top Sol 2oz TOPIC SCH (20:45)
--- NOTE | 2019-01-14 21:42 | Infectious Diseases Prog Note ---
Assessment/Plan Problems: (1) Pneumonia involving left lung Assessment & Plan: due to lung collapse, rule out mucous plug VS transbronchial mass , continue vancomycin dosed as per pharmacy and meropenem empirically , send sputum culture . suctioning as needed. CT chest to further eval , may need bronchoscopy (2) UTI (urinary tract infection) Assessment & Plan: on meropenem pending culture (3) Septic shock Assessment & Plan: due to the above, continue wide spectrum antibiotics and pressors as needed, check cortisol level (4) Lung collapse Assessment & Plan: mucous plug VS transbronchial mass , continue agressive suctioning and nebulizers, he is comfort measures and on hospice care (5) AMS (altered mental status) Assessment & Plan: suspect metabolic due to the above , continue blood pressure support and wide spectrum antibiotics , monitor in ICU Subjective ROS Limited/Unobtainable: Yes Allergies: Coded Allergies: PENICILLINS (Verified Allergy, Unknown, 01/12/19) Subjective He was transferred out of ICU, afebrile, on restrains, no cough or SOB, no diarrhea , had beach inserted Objective Vital Signs Last 24 Hour Vital Signs Date Time Temp Pulse Resp B/P (MAP) Pulse Ox O2 Delivery O2 Flow Rate FiO2 01/14/19 20:58 55 113/75 01/14/19 20:38 85 22 99 Nasal Cannula 2.0 28 01/14/19 20:23 81 24 98 Nasal Cannula 2.0 28 01/14/19 20:22 98 Nasal Cannula 2.0 28 01/14/19 16:00 97.5 87 20 112/75 (87) 95 01/14/19 16:00 Nasal Cannula 2.0 01/14/19 16:00 85 01/14/19 15:46 87 112/75 01/14/19 15:46 112/75 01/14/19 13:13 81 22 100 Nasal Cannula 2.0 28 82 24 100 01/14/19 13:00 89 20 91/70 (77) 99 01/14/19 12:45 86 21 107/70 (82) 100 01/14/19 12:30 86 23 111/67 (82) 100 01/14/19 12:15 91 21 104/70 (81) 100 01/14/19 12:00 82 01/14/19 12:00 Nasal Cannula 2.0 10/20/19 12:00 98.6 84 20 118/69 (85) 100 01/14/19 11:45 84 22 110/68 (82) 100 01/14/19 11:30 82 19 100/65 (77) 97 01/14/19 11:15 84 24 104/73 (83) 97 01/14/19 11:00 83 24 112/66 (81) 100 01/14/19 10:45 82 23 97/55 (69) 100 01/14/19 10:30 86 24 112/76 (88) 99 01/14/19 10:00 94 20 108/62 (77) 96 01/14/19 09:30 92 21 117/67 (84) 100 01/14/19 09:00 85 24 99/55 (70) 93 01/14/19 08:30 88 21 113/83 (93) 100 01/14/19 08:09 95/68 01/14/19 08:00 Bi-pap 01/14/19 08:00 80 01/14/19 08:00 98.0 82 22 95/68 (77) 93 01/14/19 07:38 100 Nasal Cannula 2.0 28 01/14/19 07:30 81 18 95/61 (72) 95 01/14/19 07:00 83 18 107/66 (80) 100 01/14/19 06:54 87 17 100 Nasal Cannula 2.0 28 92 32 100 01/14/19 06:38 92 18 100 01/14/19 06:00 84 16 111/72 (85) 100 01/14/19 05:30 82 17 87/63 (71) 100 01/14/19 05:22 82 19 100 Facial 35 01/14/19 05:00 80 16 90/63 (72) 99 01/14/19 04:30 81 16 96/67 (77) 99 01/14/19 04:00 97.8 82 19 97/64 (75) 99 01/14/19 04:00 Bi-pap 01/14/19 04:00 80 01/14/19 03:30 81 17 99/69 (79) 100 01/14/19 03:25 82 18 100 Bi-Pap 35 01/14/19 03:15 80 26 100 Facial 35 01/14/19 03:15 80 26 100 Bi-Pap 35 01/14/19 03:00 81 19 97/63 (74) 01/14/19 02:30 83 19 102/63 (76) 99 01/14/19 02:16 94/60 01/14/19 02:00 81 22 92/71 (78) 01/14/19 01:45 81 15 100/51 (67) 01/14/19 01:35 82 17 99 Facial 35 01/14/19 01:30 81 21 90/50 (63) 01/14/19 01:15 82 18 101/55 (70) 100 01/14/19 01:00 82 16 82/54 (63) 01/14/19 00:45 80 15 87/57 (67) 98 01/14/19 00:30 80 15 80/54 (63) 98 01/14/19 00:15 81 16 82/51 (61) 97 01/14/19 00:06 80 01/14/19 00:03 Bi-pap 01/14/19 00:00 35 01/14/19 00:00 80 17 100 Bi-Pap 35 01/14/19 00:00 97.6 80 17 93/50 (64) 98 01/13/19 23:45 84 17 91/57 (68) 100 01/13/19 23:45 86 20 98 Bi-Pap 35 01/13/19 23:30 81 14 83/53 (63) 96 01/13/19 23:00 82 16 102/72 (82) 91 01/13/19 22:56 80 22 96 Facial 35 01/13/19 22:30 81 21 93/59 (70) 98 01/13/19 22:00 82 24 101/56 (71) 86 Height (Feet): 5 Height (Inches): 7.00 Weight (Pounds): 182 General Appearance: no acute distress, cachetic HEENT: normocephalic, atraumatic, anicteric, mucous membranes moist, PERRL Respiratory/Chest: chest wall non-tender, lungs clear, normal breath sounds, no respiratory distress, no accessory muscle use Cardiovascular: normal peripheral pulses, normal rate, regular rhythm, no gallop/murmur, no JVD Abdomen: normal bowel sounds, soft, non tender, no organomegaly, non distended , no mass, no scars Genitourinary: normal external genitalia Extremities: no cyanosis, no clubbing Skin: no rash, no lesions, ulcers, other - abdominal stoma no draining from the borders Neurologic/Psychiatric: alert, unresponsiveness Lymphatic: no neck adenopathy, no groin adenopathy Musculoskeletal: normal muscle bulk, no effusion Microbiology Date/Time Source Procedure Growth Status 01/12/19 16:30 Blood Blood Culture - Preliminary NO GROWTH AFTER 24 HOURS Resulted 01/12/19 16:15 Blood Blood Culture - Preliminary NO GROWTH AFTER 24 HOURS Resulted 01/12/19 20:02 Nasal Nares MRSA Culture - Final Staphylococcus Aureus - Mrsa Complete 01/12/19 19:50 Nasal Nares - Final Complete 01/12/19 19:50 Nasal Nares - Final Complete 01/12/19 20:02 Rectum Received Laboratory Tests Test 01/14/19 13:00 Magnesium Level 1.6 MG/DL (1.8-2.4) L Pro-B-Type Natriuretic Peptide 81599 pg/mL (0-125) H Vancomycin Level Trough 14.0 ug/mL (5.0-12.0) H Current Medications Medications (Trade) Dose Ordered Sig/Frankie Route PRN Reason Start Time Stop Time Status Last Admin Dose Admin Acetylcysteine (Mucomyst) 200 mg Q6HRT HHN 01/14/19 19:00 02/12/19 18:59 01/14/19 20:23 Albuterol/ Ipratropium (Albuterol/ Ipratropium) 3 ml Q4H PRN HHN Shortness of Breath 01/14/19 13:16 01/19/19 13:15 Albuterol/ Ipratropium (Albuterol/ Ipratropium) 3 ml Q6HRT HHN 01/14/19 19:00 01/18/19 14:59 01/14/19 20:23 Aspirin (Ecotrin) 81 mg DAILY ORAL 01/15/19 09:00 02/12/19 08:59 Carvedilol (Coreg) 3.125 mg EVERY 12 HOURS ORAL 01/14/19 15:15 02/13/19 15:14 01/14/19 15:46 Chlorhexidine Gluconate (Sallie-Hex 2%) 1 applic DAILY@2000 TOPIC 01/14/19 20:00 02/13/19 19:59 01/14/19 20:45 Dextrose 1,000 ml @ 50 mls/hr Q20H IV 01/14/19 13:14 02/13/19 13:13 01/14/19 14:48 Dextrose (Dextrose 50%) 25 ml Q30M PRN IV Hypoglycemia 01/14/19 13:30 02/11/19 22:59 Dextrose (Dextrose 50%) 50 ml Q30M PRN IV Hypoglycemia 01/14/19 13:30 02/11/19 22:59 Hydromorphone HCl (Dilaudid) 1 mg Q4H PRN SUBQ Severe Pain (Pain Scale 7-10) 01/14/19 13:15 01/21/19 13:14 01/14/19 21:21 Lisinopril (Zestril) 2.5 mg DAILY ORAL 01/14/19 15:16 02/13/19 15:15 01/14/19 15:46 Meropenem 1 gm/ Sodium Chloride 55 ml @ 110 mls/hr Q8HR IVPB 01/14/19 14:00 01/18/19 21:59 01/14/19 14:58 Ondansetron HCl (Zofran) 4 mg Q6H PRN IVP Nausea & Vomiting 01/14/19 13:16 02/13/19 13:15 Pantoprazole (Protonix) 40 mg DAILY ORAL 01/15/19 09:00 02/13/19 08:59 Rivaroxaban (Xarelto) 20 mg DAILY ORAL 01/15/19 09:00 02/13/19 08:59 Tamsulosin HCl (Flomax) 0.4 mg BEDTIME ORAL 01/14/19 21:00 02/13/19 20:59 01/14/19 20:45 Vancomycin HCl (Vanco rx to dose) 1 ea DAILY PRN MISC Per rx protocol 01/15/19 09:00 02/12/19 14:44 Vancomycin/Sodium Chloride 275 ml @ 183.333 mls/hr Q12HR@0300,1500 IVPB 01/14/19 15:00 01/19/19 14:59 01/14/19 15:46 Chema Perry M.D. Jan 14, 2019 21:42
--- NOTE | 2019-01-14 21:45 | Consultation ---
DATE OF CONSULTATION: 01/14/2019 CARDIOLOGY CONSULTATION HISTORY OF PRESENT ILLNESS: The patient is a 58-year-old gentleman, who was sent from nursing facility for low oxygen level. The patient apparently is DNR and DNI and is for comfort measures only. According to the medical record, the patient is nonverbal. This report is prepared by using records from the longterm paperwork as well as from EMS and emergency department staff. Apparently, the patient sustained a fall out of his bed on 01/12/2019, and was down on the floor for unknown period of time. When he was found on the floor, he was hypoxic with saturation of oxygen around 80% on room air. His pulse ox however improved with nonrebreather oxygen mask and he was brought to the emergency department of [facility] for further evaluation and management of hypoxia. At the time of arrival to this facility, blood pressure was 98/57 mmHg and heart rate was 54. His cardiovascular history significant for history of presumably cardiomyopathy status post [employer] [employer]/ defibrillator implantation. Chest x-ray in the emergency department was significant for a large left pleural effusion with whiteout of the left hemithorax with no evidence of mediastinal shift of the trachea, cardiomegaly as well as presence of right atrial lead, right ventricular lead as well as coronary sinus lead. There was also some patchy infiltration in the right base suggestive of possible infiltration versus atelectasis. Initial laboratory finding showed normal WBC count of 6.6 with hemoglobin of 9.0, hematocrit 29.8, platelet count of 138. Troponin I level was 0.01 however, pro-brain natriuretic peptide was 31,374. He was also found to be hypernatremic with sodium level of 146. Blood gas at the time of arrival to the hospital showed acute respiratory acidosis with elevation of pCO2 and pH of 7.3. Cardiology consultation was made at the request of Dr. Geiger for management of hypoxia and cardiomyopathy possible acute heart failure. PAST MEDICAL HISTORY: 1. Cardiomyopathy with presumably severely depressed LV systolic function. 2. Status post [employer] [address] [address] [employer]/defibrillator. 3. History of atrial fibrillation. 4. History of colostomy placement for unknown reason. 5. History of dementia. 6. History of pulmonary hypertension. REVIEW OF SYSTEMS: At this time, a 12-system review cannot be obtained. The patient is nonverbal. ALLERGIES: Penicillin. MEDICATIONS: List of medications from the nursing facility unable to obtain. PAST SURGICAL HISTORY: 1. Status post colostomy placement. 2. Status post cardiac resynchronization therapy including biventricular pacemaker implantation as well as AICD implantation. SOCIAL HISTORY: Denies any tobacco, alcohol, or illicit drug use. PHYSICAL EXAMINATION: VITAL SIGNS: Blood pressure at time of arrival to the hospital was 98/57 mmHg, heart rate of 54, respirations 22, temperature 99.0 degrees Fahrenheit, O2 saturation 100% on non-rebreather mask. GENERAL: Very unfortunate 58-year-old gentleman, nonverbal and no apparent respiratory distress. HEENT: Atraumatic and normocephalic. Anicteric. Pupils are equal, round, and reactive to light and accommodation. Extraocular muscles intact. There is a healed laceration above the right eye, some erythematous changes superior to the right orbit. NECK: JVP less than 5 cm. No carotid bruit. Carotid upstroke is 2+ bilaterally. CVS: Normal S1 and S2. Regular rate and rhythm. No murmurs, gallops, or rubs. LUNGS: Rhonchi bilaterally with poor inspiratory effort. ABDOMEN: Soft, nontender, and nondistended. Left-sided colostomy bag is seen. EXTREMITIES: No evidence of edema, clubbing, or cyanosis. There is multiple diffuse ecchymosis on the lower extremities dressing covering the right lower leg wound which appears to be clean, dry, and intact. LABORATORY FINDINGS: WBC 6.6, hemoglobin 9.0, hematocrit of 39.8, and platelet count is 138. Sodium 136, potassium 3.9, chloride 107, bicarbonate 37, BUN of 21, creatinine 1.2, glucose 115, calcium is 8.6. Troponin I is 0.01. ProBNP was 31,374. INR was 1.3. A 2D echocardiography was not performed yet. A 12-lead electrocardiogram has sinus rhythm with no acute ST and T-wave abnormalities. ASSESSMENT AND PLAN: 1. 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 Chest x-ray is more in favor of left hip hemithorax whiteout most likely as a possible cause of acute respiratory acidosis and pulmonary deterioration. A 2D echocardiography can certainly help out with hemodynamic management. 2. Status post [address] [address] [employer]/defibrillator implantation most likely for primary prevention of sudden cardiac . 3. Most likely permanent atrial fibrillation, will continue Xarelto. 4. Hypotension, currently on Levophed drip, I would like to try dobutamine drip given the patient's left ventricular systolic dysfunction. Will add dopamine drip if needed. 5. Status post colostomy bag placement. Total amount of time spent in the evaluation of this patient in the intensive care unit of [facility] and discussing the plan of care with the primary care physician, nursing staff, review of the old records was 50 minutes. I would like to thank, Dr. Geiger, for the courtesy of this consultation. Saul Chino M.D. DR: Bairon JOB#: [id number] CC: MATHIEU
--- NOTE | 2019-01-14 23:18 | NUR ---
RESPIRATORY NOTE: Pt placed on BiPAP for nightly use. Pt now on BiPAP /, backup rate 14, 35%. Pt on a Facial mask, skin intact, no redness/breakdowns noted. Foam tape applied on pt's nosebridge/cheeks to prevent irritations. Pt asleeep. B/S meredith. clear/diminished, nonproductive cough. BiPAP plugged into red outlet, alarms on & audible. Pt in no apparent distress at this time. Will continue plan of care.
[2019-01-15] VITALS: BP 119/71
[2019-01-15] MEDS: Acetylcysteine 20% Soln 4ml HHN SCH ×4 (01:22→19:22)
[2019-01-15] MEDS: Albuterol/Ipratropium 3ml neb HHN SCH ×4 (01:22→19:22)
[2019-01-15] MEDS: Vancomycin 1.25gm/NS Premix q24h IVPB SCH ×2 (03:34→15:49)
[2019-01-15 04:00] VITALS: BP 105/66
[2019-01-15] MEDS: Meropenem 1 GM in NS 55 ML IVPB SCH ×3 (05:39→21:00)
--- NOTE | 2019-01-15 07:20 | NUR ---
HAND-OFF: Report given to Grayson RINALDI.
[2019-01-15 07:58] LABS: HEMATOCRIT 29.6 % (42.0-52.0); HEMOGLOBIN 9.2 G/DL (14.2-18.0); MEAN CORPUSCULAR VOLUME 84 FL (80-99); PLATELET COUNT 129 K/UL (150-450); RED BLOOD COUNT 3.52 M/UL (4.70-6.10); RED CELL DISTRIBUTION WIDTH 19.2 % (11.6-14.8); WHITE BLOOD COUNT 3.4 K/UL (4.8-10.8)
[2019-01-15 08:01] VITALS: BP 106/69
--- NOTE | 2019-01-15 08:11 | NUR ---
RESPIRATORY NOTE: Manually scanned Mucomyst. Scanner not reading it.
[2019-01-15 08:36] LABS: ALANINE AMINOTRANSFERASE 11 U/L (12-78); ALBUMIN 1.6 G/DL (3.4-5.0); ALBUMIN/GLOBULIN RATIO 0.4 (1.0-2.7); ALKALINE PHOSPHATASE 68 U/L (46-116); ANION GAP 6 mmol/L (5-15); ASPARTATE AMINO TRANSFERASE 23 U/L (15-37); BILIRUBIN,TOTAL 0.9 MG/DL (0.2-1.0); BLOOD UREA NITROGEN 15 mg/dL (7-18); CARBON DIOXIDE 32 MMOL/L (21-32); CHLORIDE 105 MMOL/L (98-107); FERRITIN 649 NG/ML (8-388); GAMMA GLUTAMYL TRANSPEPTIDASE 56 U/L (5-85); HDL CHOLESTEROL 31 MG/DL (40-60); PHOSPHORUS 2.6 MG/DL (2.5-4.9); POTASSIUM 3.3 MMOL/L (3.5-5.1); SODIUM 143 MMOL/L (136-145); TRIGLYCERIDES 65 MG/DL (30-150)
[2019-01-15 08:44] LABS: % IRON SATURATION 24 % (15-50); IRON 33 ug/dL (50-175); TOTAL IRON BINDING CAPACITY 136 ug/dL (250-450)
[2019-01-15 08:58] LABS: CHOLESTEROL 80 MG/DL (< 200)
[2019-01-15] MEDS: Aspirin EC 81mg tab ORAL SCH (09:02)
[2019-01-15] MEDS: Lisinopril 2.5mg tab ORAL SCH (09:02)
[2019-01-15] MEDS: Xarelto 10mg tab ORAL SCH (09:03)
[2019-01-15 09:13] LABS: CALCIUM 8.3 MG/DL (8.5-10.1)
--- NOTE | 2019-01-15 09:27 | NUR ---
NURSE NOTES: Pt in bed in low position, bed alarm on, pt with right wrist soft restraint for attempting to get out of bed when unstable therefore, unsteady gait, pt is Ox1 with confusion, IV intact and running D5W at 50 asymptomatic, meds given crushed with apple sauce, pt tolerated well, pt ate all of breakfast (puree nectar thick), sacral and upper back injury looked at dressing in place, beach catheter placed yesterday for retention, pt will need to be repositioned Q2 or less, pt on bipap then switched to NC at 3 with humidification, no s/s of distress or sob noted.
--- NOTE | 2019-01-15 09:57 | NUR ---
*-* INSURANCE *-* ALL AVAILABLE CLINICALS HAVE BEEN FAXED TO: [employer] P- [phone] F- [phone]...REVIEW/CLINICAL
--- NOTE | 2019-01-15 10:19 | NUR ---
SWALLOW / SPEECH THERAPY NOTE: REFERRED BY DR SCHWARTZ FOR A SWALLOWING EVALUATION, SEE FULL REPORT. DYSPHAGIA RISK FACTORS FOR THIS 58 Y.O. MAURITIAN-SPEAKING MALE: ACUTE sepsis, HYPOXIA AND HYPOXEMIA, , Resp failuire (RR 18-20 GOOD 02 SATS ON 2 LITERS NC TRIES TO PULL OFF, WAS ON BIPAP), CXR 1. Left lung opacification with slightly improved aeration in the left upper lobe. Improvement in the interstitial prominence of the right lung. 2. Small bilateral pleural effusions, greater on the left, likely stable. 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 PER POLST ON COMFORT FOCUSED CARE BUT OK FOR INTERMEDIATE ARTIFICIAL NUTRITION. ON HOSPICE. AT SNF ON PUREED AND NECTAR THICK LIQUIDS BOOST 2X BETWEEN MEALS. CURRENTLY ON A KENN PUREED AND NECTAR THICK LIQUIDS WITH 0 TO 100% INTAKE W/O OVERT ASPIRATION PER RN. ALSO TOOK CRUSHED MED WITH APPLESAUCE W/O OVERT ASPIRATION. PER RD REG TYPE DIET AND GLUCERNA IF TUBE FEEDINGS. PATIENT IS ALERT AND ABLE TO EXPRESS NEEDS IN MAURITIAN. SPEECH IS MILDLY DYSARTHRIC (REDUCED ARTICULATION AND LOUDNESS) AND NEEDS TO REPEAT 20% OF THE TIME. ORIENTED TO HOSPITAL AND SELF, NOT TIME. INITIAL IMPRESSIONS: S/S OF AT LEAST A MILD OROPHARYNGEAL DYSPHAGIA WITH MILD INCREASE IN OVERALL TRANSIT TIMES. GROSSLY FUNCTIONAL LIPS/TONGUE BUT HAS A WEAK VOLITIONAL COUGH TO COMMAND. GIVEN THIN LIQUIDS VIA CUP SEQUENTIAL SIPS VIA STRAW, NO OVERT ASPIRATION BUT DID NEED TO PAUSE 2 X TO BREATHE AND COMPLETE 3 0Z CHRISTEN SWALLOW WATER TEST. GIVEN PUREED TSP, CHEWED ON BOLUS UNNECESSARILY 2 SECONDS AND SWALLOWED WITH FAIR HYOLARYNGEAL EXCURSION, NO ORAL RESIDUE NOR OVERT ASPIRATION GIVEN 1/2 CRACKER, CHEWED 10 SECONDS WITH UPPER/LOWER DENTURES, NO ORAL RESIDUE NOR OVERT ASPIRATION. HAS SILENT ASPIRATION RISK DUE TO CVA 2011 VARIABLE POOR INTAKE RECOMMENDATIONS: COMPLETE MOD BARIUM SWALLOW STUDY IP OR OP IF DC TO FURTHER ASSESS SWALLOW, DETERMINE SILENT ASP RISK/ETIOLOGY, AND ATTEMPT TRIAL TX TECHNIQUES. IF PO CONTINUES FOR QUALITY OF LIFE, CONTINUE WITH CURRENT KENN PUREED AND NECTAR THICK LIQUID WITH POSTED ASP/REFLUX PRECAUTIONS AND ONE TO ONE FEEDING. EDUCATED/TRAINED RN (GUME) AND FINAL BLOCK PRESS OPERATOR (ALYSHA) IN POSTED PRECAUTIONS. SKILLED DYSPHAGIA MANAGEMENT AND TX AND COG-COM EVAL/TX FOR COMMUNICATION TIPS.
--- NOTE | 2019-01-15 10:23 | NUR ---
CASE MANAGEMENT: INITIAL REVIEW 58 YR OLD MALE SJ FROM [facility] PMH: END STAGE HEART FAILURE CC: ALTERED LEVEL OF CONSCIOUSNESS SI:ACUTE MAXILLARY SINUS, HYPOXIA 98.9 54 22 98/57 100 NR MASK IS: IV CIPROFLOXACIN X1 IV CEFEPIME X1 IV NS BOLUS X2 : TO TELE UNIT DCP: RETURN TO [facility] CASE MANAGEMENT: REVIEW 01/15/19 SI:ACUTE MAXILLARY SINUS, HYPOXIA PMH: END STAGE HEART FAILURE 97.5 83 20 106/69 94% NC 3L IS: IV DEXTROSE @50HR IV VANCOMYCIN Q12HR IV MEROPENEM Q8HR COREG PO Q12HR DILAUDID SQ Q4/PRN ALBUTEROL HHN Q6HR ASA PO QD PROTONIX PO QD : TO TELE UNIT DCP: RETURN TO [facility] PLAN: BARIUM SWALLOW STUDY CT CHEST R/O INFECTION Addendum: 01/15/19 at 1131 by GAURANG REYES LVN CASE MANAGEMENT: REVIEW 01/15/19 SI:ALOC; UTI ; SEPTIC SHOCK PMH: END STAGE HEART FAILURE 97.5 83 20 106/69 94% NC 3L IS: IV DEXTROSE @50HR IV VANCOMYCIN Q12HR IV MEROPENEM Q8HR COREG PO Q12HR DILAUDID SQ Q4/PRN ALBUTEROL HHN Q6HR ASA PO QD PROTONIX PO QD : TO [facility] UNIT DCP: RETURN TO [facility] PLAN: BARIUM SWALLOW STUDY CT CHEST R/O INFECTION
--- NOTE | 2019-01-15 11:15 | Nephrology Progress Note ---
Assessment/Plan Problem List: (1) Pacemaker (2) Paroxysmal atrial fibrillation (3) Cardiomyopathy (4) UTI (urinary tract infection) Assessment UTI Proteinuria Cardiomyopathy low Ej Fx, CHF Hypoxia Encephalopathy Pulmonary hypertension H/O: stroke Colostomy in place Pacemaker Paroxysmal atrial fibrillation Healthcare-associated pneumonia Lung collapse Plan K supplement DC IV fluid Pulmonary support Stablize cardiac status Monitor lytes and renal parameters Per consultants Subjective ROS Limited/Unobtainable: No Constitutional: Reports: malaise, weakness Objective Objective Last 24 Hour Vital Signs Date Time Temp Pulse Resp B/P (MAP) Pulse Ox O2 Delivery O2 Flow Rate FiO2 01/15/19 09:40 105 01/15/19 09:03 83 106/69 01/15/19 09:02 106/69 01/15/19 08:11 99 Nasal Cannula 2.0 28 01/15/19 08:10 70 18 100 Nasal Cannula 2.0 28 78 20 99 01/15/19 08:02 Nasal Cannula 3.0 01/15/19 08:01 97.5 83 20 106/69 (81) 94 01/15/19 07:49 82 01/15/19 05:18 76 23 98 Facial 35 01/15/19 04:00 97.0 59 16 105/66 (79) 100 01/15/19 04:00 82 01/15/19 04:00 Nasal Cannula 2.0 01/15/19 03:35 63 16 99 Facial 35 01/15/19 01:36 60 19 100 Bi-Pap 35 01/15/19 01:21 61 23 100 Bi-Pap 35 01/15/19 01:20 61 23 100 Facial 35 01/15/19 00:58 35 01/15/19 00:00 97.3 58 18 119/71 (87) 100 01/15/19 00:00 Nasal Cannula 2.0 01/15/19 00:00 81 01/14/19 23:15 59 23 99 Facial 35 01/14/19 20:58 55 113/75 01/14/19 20:38 85 22 99 Nasal Cannula 2.0 28 01/14/19 20:23 81 24 98 Nasal Cannula 2.0 28 01/14/19 20:22 98 Nasal Cannula 2.0 28 01/14/19 20:00 97.7 55 18 113/75 (88) 100 01/14/19 20:00 Nasal Cannula 2.0 01/14/19 20:00 92 01/14/19 16:00 97.5 87 20 112/75 (87) 95 01/14/19 16:00 Nasal Cannula 2.0 01/14/19 16:00 85 01/14/19 15:46 87 112/75 01/14/19 15:46 112/75 01/14/19 13:13 81 22 100 Nasal Cannula 2.0 28 82 24 100 01/14/19 13:00 89 20 91/70 (77) 99 01/14/19 12:45 86 21 107/70 (82) 100 01/14/19 12:30 86 23 111/67 (82) 100 01/14/19 12:15 91 21 104/70 (81) 100 01/14/19 12:00 82 01/14/19 12:00 Nasal Cannula 2.0 01/14/19 12:00 98.6 84 20 118/69 (85) 100 01/14/19 11:45 84 22 110/68 (82) 100 01/14/19 11:30 82 19 100/65 (77) 97 01/14/19 11:15 84 24 104/73 (83) 97 Intake and Output 01/14/19 01/15/19 19:00 07:00 Intake Total 546.636 ml 1175.000 ml Output Total 410 ml 160 ml Balance 136.636 ml 1015.000 ml Intake Oral 20 ml 240 ml IV Total 526.636 ml 935.000 ml Output Urine Total 410 ml 160 ml # Bowel Movements 2 Laboratory Tests 01/14/19 13:00: Magnesium Level 1.6L, Pro-B-Type Natriuretic Peptide 10357R, Vancomycin Level Trough 14.0H 01/15/19 05:20: Magnesium Level 1.8, Pro-B-Type Natriuretic Peptide 32520I, White Blood Count 3.4L, Red Blood Count 3.52L, Hemoglobin 9.2L, Hematocrit 29.6L, Mean Corpuscular Volume 84, Mean Corpuscular Hemoglobin 26.0L, Mean Corpuscular Hemoglobin Concent 30.9L, Red Cell Distribution Width 19.2H, Platelet Count 129L , Mean Platelet Volume 5.8L, Neutrophils (%) (Auto) , Lymphocytes (%) (Auto) , Monocytes (%) (Auto) , Eosinophils (%) (Auto) , Basophils (%) (Auto) , Differential Total Cells Counted 100, Neutrophils % (Manual) 79H, Lymphocytes % (Manual) 11L, Monocytes % (Manual) 6, Eosinophils % (Manual) 4H, Basophils % ( Manual) 0, Band Neutrophils 0, Platelet Estimate DecreasedL, Platelet Morphology Normal, Anisocytosis 1+, Sodium Level 143, Potassium Level 3.3L, Chloride Level 105, Carbon Dioxide Level 32, Anion Gap 6, Blood Urea Nitrogen 15 , Creatinine 1.0, Estimat Glomerular Filtration Rate > 60, Glucose Level 80, Hemoglobin A1c 5.7, Uric Acid 6.3, Calcium Level 8.3L, Phosphorus Level 2.6, Iron Level 33L, Total Iron Binding Capacity 136L, Percent Iron Saturation 24, Unsaturated Iron Binding 103L, Ferritin 649H, Total Bilirubin 0.9, Gamma Glutamyl Transpeptidase 56, Aspartate Amino Transf (AST/SGOT) 23, Alanine Aminotransferase (ALT/SGPT) 11L, Alkaline Phosphatase 68, C-Reactive Protein, Quantitative 15.1H, Total Protein 5.7L, Albumin 1.6L, Globulin 4.1, Albumin/ Globulin Ratio 0.4L, Triglycerides Level 65, Cholesterol Level 80, LDL Cholesterol 40, HDL Cholesterol 31L, Cholesterol/HDL Ratio 2.6L, Vitamin B12 Level 790, Folate 15.8, Thyroid Stimulating Hormone (TSH) 4.547H Height (Feet): 5 Height (Inches): 7.00 Weight (Pounds): 188 General Appearance: no apparent distress Cardiovascular: pacemaker/AICD Respiratory/Chest: decreased breath sounds - left more than right Abdomen: soft Genitourinary/Rectal: other - colostomy Migel Baltazar MD Jan 15, 2019 11:15
--- NOTE | 2019-01-15 11:36 | Cardiology Report ---
APPROVED REPORT EXAM: Two-dimensional and M-mode echocardiogram with Doppler and color Doppler. INDICATION A-FLUTTER M-Mode DIMENSIONS IVSd1.2 (0.7-1.1cm)Left Atrium (MM)5.1 (1.6-4.0cm) LVDd9.1 (3.5-5.6cm)Aortic Root4.3 (2.0-3.7cm) PWd1.3 (0.7-1.1cm)Aortic Cusp Exc.2.3 (1.5-2.0cm) IVSs1.0 cm LVDs8.1 (2.5-4.0cm) PWs1.1 cm Technically difficult study due to combative patient . Severe left ventricular enlargement . Global left ventricular hypokinesis , inferior wall dyskinesis . Left ventricular ejection fraction estimated to be 20-25%. Anterior Echo-free space, may be due to pericardial fat or effusion. Mild left ventricular hypertrophy. Moderate bi-atrial enlargement . Mild right ventricular enlargement . Focal aortic valve sclerosis with adequate cusp excursion. Thickened mitral valve leaflets with normal excursion. Mitral annulus and aortic root calcification. Normal tricuspid valve structure. IVC dilated at 3.0 cm without physiologic collapse suggestive of increased RA pressure.RAP estimated 20 mmHg. A color flow and spectral Doppler study was performed and revealed: Trace aortic insufficiency . Moderate mitral regurgitation . Left ventricular diastolic function is not diagnostic due to A-flutter. Moderate tricuspid regurgitation. Tricuspid systolic velocities suggests peak right ventricular systolic pressure of 71mmHg mmHg,consistent with severe pulmonary hypertension.
[2019-01-15 12:00] VITALS: BP 105/68
--- NOTE | 2019-01-15 12:13 | Pulmonology Progress Note ---
Assessment/Plan Problems: (1) Hypoxia (2) Healthcare-associated pneumonia (3) CHF (congestive heart failure) (4) Pulmonary hypertension (5) AMS (altered mental status) (6) UTI (urinary tract infection) (7) Cardiomyopathy (8) Dementia (9) Encephalopathy (10) Paroxysmal atrial fibrillation (11) Pacemaker Assessment/Plan Optimize pulmonary hygiene/mobilize as tolerated Titrate FiO2 to keep SaO2 > 90% RTC and PRN DUOnebs Mucomyst CPT F/U CT chest Ana/Vanco per ID, F/U Cx's Monitor volumes and renal function, ? 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 Monitor MS DVT Px: NOAC DNAR, continue to discuss GOC Subjective Allergies: Coded Allergies: PENICILLINS (Verified Allergy, Unknown, 01/12/19) Subjective AFVSS on 2L TTF lethargic + cough + SOB no FC no CP Objective Last 24 Hour Vital Signs Date Time Temp Pulse Resp B/P (MAP) Pulse Ox O2 Delivery O2 Flow Rate FiO2 01/15/19 09:40 105 01/15/19 09:03 83 106/69 01/15/19 09:02 106/69 01/15/19 08:11 99 Nasal Cannula 2.0 28 01/15/19 08:10 70 18 100 Nasal Cannula 2.0 28 78 20 99 01/15/19 08:02 Nasal Cannula 3.0 01/15/19 08:01 97.5 83 20 106/69 (81) 94 01/15/19 07:49 82 01/15/19 05:18 76 23 98 Facial 35 01/15/19 04:00 97.0 59 16 105/66 (79) 100 01/15/19 04:00 82 01/15/19 04:00 Nasal Cannula 2.0 01/15/19 03:35 63 16 99 Facial 35 01/15/19 01:36 60 19 100 Bi-Pap 35 01/15/19 01:21 61 23 100 Bi-Pap 35 01/15/19 01:20 61 23 100 Facial 35 01/15/19 00:58 35 01/15/19 00:00 97.3 58 18 119/71 (87) 100 01/15/19 00:00 Nasal Cannula 2.0 01/15/19 00:00 81 01/14/19 23:15 59 23 99 Facial 35 01/14/19 20:58 55 113/75 01/14/19 20:38 85 22 99 Nasal Cannula 2.0 28 01/14/19 20:23 81 24 98 Nasal Cannula 2.0 28 01/14/19 20:22 98 Nasal Cannula 2.0 28 01/14/19 20:00 97.7 55 18 113/75 (88) 100 01/14/19 20:00 Nasal Cannula 2.0 01/14/19 20:00 92 01/14/19 16:00 97.5 87 20 112/75 (87) 95 01/14/19 16:00 Nasal Cannula 2.0 01/14/19 16:00 85 01/14/19 15:46 87 112/75 01/14/19 15:46 112/75 01/14/19 13:13 81 22 100 Nasal Cannula 2.0 28 82 24 100 01/14/19 13:00 89 20 91/70 (77) 99 01/14/19 12:45 86 21 107/70 (82) 100 01/14/19 12:30 86 23 111/67 (82) 100 01/14/19 12:15 91 21 104/70 (81) 100 Intake and Output 01/14/19 01/15/19 19:00 07:00 Intake Total 546.636 ml 1175.000 ml Output Total 410 ml 160 ml Balance 136.636 ml 1015.000 ml Intake Oral 20 ml 240 ml IV Total 526.636 ml 935.000 ml Output Urine Total 410 ml 160 ml # Bowel Movements 2 General Appearance: no acute distress, cachetic HEENT: normocephalic, atraumatic, anicteric, mucous membranes moist Respiratory/Chest: rhonchi Cardiovascular: normal peripheral pulses, normal rate, regular rhythm Abdomen: normal bowel sounds, soft, non tender, no organomegaly, non distended , no mass Extremities: no cyanosis, no clubbing, no edema Microbiology Date/Time Source Procedure Growth Status 01/12/19 16:30 Blood Blood Culture - Preliminary NO GROWTH AFTER 48 HOURS Resulted 01/12/19 16:15 Blood Blood Culture - Preliminary NO GROWTH AFTER 48 HOURS Resulted 01/14/19 13:00 Sputum Expectorated Gram Stain Pending Resulted 01/14/19 13:00 Sputum Culture - Preliminary Staphylococcus Aureus Resulted 01/12/19 20:02 Nasal Nares MRSA Culture - Final Staphylococcus Aureus - Mrsa Complete 01/12/19 19:50 Nasal Nares - Final Complete 01/12/19 19:50 Nasal Nares - Final Complete 01/12/19 17:25 External Cath Urine Culture - Final Staphylococcus Aureus - Mrsa Complete 01/12/19 20:02 Rectum - Final NO CARBAPENEM-RESISTANT ENTEROBACTERI... Complete 01/12/19 20:02 Rectum VRE Culture - Final Enterococcus Faecalis - Vre Complete Laboratory Tests 01/14/19 13:00: Magnesium Level 1.6L, Pro-B-Type Natriuretic Peptide 56849R, Vancomycin Level Trough 14.0H 01/15/19 05:20: Magnesium Level 1.8, Pro-B-Type Natriuretic Peptide 83409S, White Blood Count 3.4L, Red Blood Count 3.52L, Hemoglobin 9.2L, Hematocrit 29.6L, Mean Corpuscular Volume 84, Mean Corpuscular Hemoglobin 26.0L, Mean Corpuscular Hemoglobin Concent 30.9L, Red Cell Distribution Width 19.2H, Platelet Count 129L , Mean Platelet Volume 5.8L, Neutrophils (%) (Auto) , Lymphocytes (%) (Auto) , Monocytes (%) (Auto) , Eosinophils (%) (Auto) , Basophils (%) (Auto) , Differential Total Cells Counted 100, Neutrophils % (Manual) 79H, Lymphocytes % (Manual) 11L, Monocytes % (Manual) 6, Eosinophils % (Manual) 4H, Basophils % ( Manual) 0, Band Neutrophils 0, Platelet Estimate DecreasedL, Platelet Morphology Normal, Anisocytosis 1+, Sodium Level 143, Potassium Level 3.3L, Chloride Level 105, Carbon Dioxide Level 32, Anion Gap 6, Blood Urea Nitrogen 15 , Creatinine 1.0, Estimat Glomerular Filtration Rate > 60, Glucose Level 80, Hemoglobin A1c 5.7, Uric Acid 6.3, Calcium Level 8.3L, Phosphorus Level 2.6, Iron Level 33L, Total Iron Binding Capacity 136L, Percent Iron Saturation 24, Unsaturated Iron Binding 103L, Ferritin 649H, Total Bilirubin 0.9, Gamma Glutamyl Transpeptidase 56, Aspartate Amino Transf (AST/SGOT) 23, Alanine Aminotransferase (ALT/SGPT) 11L, Alkaline Phosphatase 68, C-Reactive Protein, Quantitative 15.1H, Total Protein 5.7L, Albumin 1.6L, Globulin 4.1, Albumin/ Globulin Ratio 0.4L, Triglycerides Level 65, Cholesterol Level 80, LDL Cholesterol 40, HDL Cholesterol 31L, Cholesterol/HDL Ratio 2.6L, Vitamin B12 Level 790, Folate 15.8, Thyroid Stimulating Hormone (TSH) 4.547H Current Medications Medications (Trade) Dose Ordered Sig/Frankie Route PRN Reason Start Time Stop Time Status Last Admin Dose Admin Acetylcysteine (Mucomyst) 200 mg Q6HRT N 01/14/19 19:00 02/12/19 18:59 01/15/19 08:10 Albuterol/ Ipratropium (Albuterol/ Ipratropium) 3 ml Q4H PRN HHN Shortness of Breath 01/14/19 13:16 01/19/19 13:15 Albuterol/ Ipratropium (Albuterol/ Ipratropium) 3 ml Q6HRT HHN 01/14/19 19:00 01/18/19 14:59 01/15/19 08:10 Aspirin (Ecotrin) 81 mg DAILY ORAL 01/15/19 09:00 02/12/19 08:59 01/15/19 09:02 Carvedilol (Coreg) 3.125 mg EVERY 12 HOURS ORAL 01/14/19 15:15 02/13/19 15:14 01/15/19 09:03 Chlorhexidine Gluconate (Sallie-Hex 2%) 1 applic DAILY@2000 TOPIC 01/14/19 20:00 02/13/19 19:59 01/14/19 20:45 Dextrose (Dextrose 50%) 25 ml Q30M PRN IV Hypoglycemia 01/14/19 13:30 02/11/19 22:59 Dextrose (Dextrose 50%) 50 ml Q30M PRN IV Hypoglycemia 01/14/19 13:30 02/11/19 22:59 Hydromorphone HCl (Dilaudid) 1 mg Q4H PRN SUBQ Severe Pain (Pain Scale 7-10) 01/14/19 13:15 01/21/19 13:14 01/14/19 21:21 Lisinopril (Zestril) 2.5 mg DAILY ORAL 01/14/19 15:16 02/13/19 15:15 01/15/19 09:02 Meropenem 1 gm/ Sodium Chloride 55 ml @ 110 mls/hr Q8HR IVPB 01/14/19 14:00 01/18/19 21:59 01/15/19 05:39 Ondansetron HCl (Zofran) 4 mg Q6H PRN IVP Nausea & Vomiting 01/14/19 13:16 02/13/19 13:15 Pantoprazole (Protonix) 40 mg DAILY ORAL 01/15/19 09:00 02/13/19 08:59 01/15/19 09:02 Potassium Chloride (K-Dur) 40 meq DAILY ORAL 01/15/19 12:00 02/14/19 11:59 01/15/19 11:52 Rivaroxaban (Xarelto) 20 mg DAILY ORAL 01/15/19 09:00 02/13/19 08:59 01/15/19 09:03 Tamsulosin HCl (Flomax) 0.4 mg BEDTIME ORAL 01/14/19 21:00 02/13/19 20:59 01/14/19 20:45 Vancomycin HCl (Vanco rx to dose) 1 ea DAILY PRN MISC Per rx protocol 01/15/19 09:00 02/12/19 14:44 Vancomycin/Sodium Chloride 275 ml @ 183.333 mls/hr Q12HR@0300,1500 IVPB 01/14/19 15:00 01/19/19 14:59 01/15/19 03:34 James Maynard MD Jan 15, 2019 12:13
--- NOTE | 2019-01-15 15:44 | General Progress Note ---
Assessment/Plan Status: not improved Assessment/Plan: S: not verbal O: seem comfortable. poor historian, delirious. On Nasal canula, Leon. on soft restraint PHYSICAL EXAMINATION:HEAD AND NECK: Atraumatic and normocephalic. CHEST: diffuse bronchial bs.HEART: S1, S2. Regular rate and rhythm. ABDOMEN: Soft. No organomegaly.MUSCULOSKELETAL: No gross lateralized motor deficit. NEUROLOGY: The patient is delirious, limied exam Meds and labs dated Jan 14 reviewed ASSESSMENT AND PLAN: 1. Acute respiratory failure. 2. Sepsis secondary to healthcare-associated UTI/pneumonia. 3. CVA, history of left-sided territory involvement. 4. Acute on chronic Anemia. 5. Cardiomyopathy. 6. Hypernatremia. 7. GI and DVT prophylaxis. 8. DNR and DNI. PLAN OF CARE: NOtes from Pulmonary, ID, Nephro, are rearview current empirical abx I will send stool for OB Subjective Allergies: Coded Allergies: PENICILLINS (Verified Allergy, Unknown, 01/12/19) Objective Last 24 Hour Vital Signs Date Time Temp Pulse Resp B/P (MAP) Pulse Ox O2 Delivery O2 Flow Rate FiO2 01/15/19 14:02 69 18 100 Nasal Cannula 2.0 28 62 18 99 01/15/19 12:52 83 01/15/19 12:29 Nasal Cannula 3.0 01/15/19 12:00 97.7 85 22 105/68 (80) 97 01/15/19 09:40 105 01/15/19 09:03 83 106/69 01/15/19 09:02 106/69 01/15/19 08:11 99 Nasal Cannula 2.0 28 01/15/19 08:10 70 18 100 Nasal Cannula 2.0 28 78 20 99 01/15/19 08:02 Nasal Cannula 3.0 01/15/19 08:01 97.5 83 20 106/69 (81) 94 01/15/19 07:49 82 01/15/19 05:18 76 23 98 Facial 35 01/15/19 04:00 97.0 59 16 105/66 (79) 100 01/15/19 04:00 82 01/15/19 04:00 Nasal Cannula 2.0 01/15/19 03:35 63 16 99 Facial 35 01/15/19 01:36 60 19 100 Bi-Pap 35 01/15/19 01:21 61 23 100 Bi-Pap 35 01/15/19 01:20 61 23 100 Facial 35 01/15/19 00:58 35 01/15/19 00:00 97.3 58 18 119/71 (87) 100 01/15/19 00:00 Nasal Cannula 2.0 01/15/19 00:00 81 01/14/19 23:15 59 23 99 Facial 35 01/14/19 20:58 55 113/75 01/14/19 20:38 85 22 99 Nasal Cannula 2.0 28 01/14/19 20:23 81 24 98 Nasal Cannula 2.0 28 01/14/19 20:22 98 Nasal Cannula 2.0 28 01/14/19 20:00 97.7 55 18 113/75 (88) 100 01/14/19 20:00 Nasal Cannula 2.0 01/14/19 20:00 92 01/14/19 16:00 97.5 87 20 112/75 (87) 95 01/14/19 16:00 Nasal Cannula 2.0 01/14/19 16:00 85 01/14/19 15:46 87 112/75 01/14/19 15:46 112/75 Intake and Output 01/14/19 01/15/19 19:00 07:00 Intake Total 546.636 ml 1175.000 ml Output Total 410 ml 160 ml Balance 136.636 ml 1015.000 ml Intake Oral 20 ml 240 ml IV Total 526.636 ml 935.000 ml Output Urine Total 410 ml 160 ml # Bowel Movements 2 Laboratory Tests 01/15/19 05:20: White Blood Count 3.4L, Red Blood Count 3.52L, Hemoglobin 9.2L, Hematocrit 29.6L , Mean Corpuscular Volume 84, Mean Corpuscular Hemoglobin 26.0L, Mean Corpuscular Hemoglobin Concent 30.9L, Red Cell Distribution Width 19.2H, Platelet Count 129L, Mean Platelet Volume 5.8L, Neutrophils (%) (Auto) , Lymphocytes (%) (Auto) , Monocytes (%) (Auto) , Eosinophils (%) (Auto) , Basophils (%) (Auto) , Differential Total Cells Counted 100, Neutrophils % ( Manual) 79H, Lymphocytes % (Manual) 11L, Monocytes % (Manual) 6, Eosinophils % ( Manual) 4H, Basophils % (Manual) 0, Band Neutrophils 0, Platelet Estimate DecreasedL, Platelet Morphology Normal, Anisocytosis 1+, Sodium Level 143, Potassium Level 3.3L, Chloride Level 105, Carbon Dioxide Level 32, Anion Gap 6, Blood Urea Nitrogen 15, Creatinine 1.0, Estimat Glomerular Filtration Rate > 60 , Glucose Level 80, Hemoglobin A1c 5.7, Uric Acid 6.3, Calcium Level 8.3L, Phosphorus Level 2.6, Magnesium Level 1.8, Iron Level 33L, Total Iron Binding Capacity 136L, Percent Iron Saturation 24, Unsaturated Iron Binding 103L, Ferritin 649H, Total Bilirubin 0.9, Gamma Glutamyl Transpeptidase 56, Aspartate Amino Transf (AST/SGOT) 23, Alanine Aminotransferase (ALT/SGPT) 11L, Alkaline Phosphatase 68, C-Reactive Protein, Quantitative 15.1H, Pro-B-Type Natriuretic Peptide 66961N, Total Protein 5.7L, Albumin 1.6L, Globulin 4.1, Albumin/ Globulin Ratio 0.4L, Triglycerides Level 65, Cholesterol Level 80, LDL Cholesterol 40, HDL Cholesterol 31L, Cholesterol/HDL Ratio 2.6L, Vitamin B12 Level 790, Folate 15.8, Thyroid Stimulating Hormone (TSH) 4.547H Height (Feet): 5 Height (Inches): 7.00 Weight (Pounds): 188 Preston Geiger MD Jan 15, 2019 15:44
[2019-01-15 16:00] VITALS: BP 107/70
--- NOTE | 2019-01-15 16:23 | Infectious Diseases Prog Note ---
Assessment/Plan Problems: (1) Pneumonia involving left lung Assessment & Plan: with staph aureus due to lung collapse, rule out mucous plug VS transbronchial mass , continue vancomycin dosed as per pharmacy and meropenem empirically , pending final sputum culture . suctioning as needed. (2) UTI (urinary tract infection) Assessment & Plan: on meropenem pending culture (3) Septic shock Assessment & Plan: due to the above, continue wide spectrum antibiotics and pressors as needed, check cortisol level (4) Lung collapse Assessment & Plan: mucous plug VS transbronchial mass , continue agressive suctioning and nebulizers, he is comfort measures and on hospice care (5) AMS (altered mental status) Assessment & Plan: suspect metabolic due to the above , continue blood pressure support and wide spectrum antibiotics , monitor in ICU Subjective ROS Limited/Unobtainable: Yes Allergies: Coded Allergies: PENICILLINS (Verified Allergy, Unknown, 01/12/19) Subjective He was transferred out of ICU, resting in bed, afebrile, on restrains, has mild cough no SOB, no diarrhea Objective Vital Signs Last 24 Hour Vital Signs Date Time Temp Pulse Resp B/P (MAP) Pulse Ox O2 Delivery O2 Flow Rate FiO2 01/15/19 14:02 69 18 100 Nasal Cannula 2.0 28 62 18 99 01/15/19 12:52 83 01/15/19 12:29 Nasal Cannula 3.0 01/15/19 12:00 97.7 85 22 105/68 (80) 97 01/15/19 09:40 105 01/15/19 09:03 83 106/69 01/15/19 09:02 106/69 01/15/19 08:11 99 Nasal Cannula 2.0 28 01/15/19 08:10 70 18 100 Nasal Cannula 2.0 28 78 20 99 01/15/19 08:02 Nasal Cannula 3.0 01/15/19 08:01 97.5 83 20 106/69 (81) 94 01/15/19 07:49 82 01/15/19 05:18 76 23 98 Facial 35 01/15/19 04:00 97.0 59 16 105/66 (79) 100 01/15/19 04:00 82 01/15/19 04:00 Nasal Cannula 2.0 01/15/19 03:35 63 16 99 Facial 35 01/15/19 01:36 60 19 100 Bi-Pap 35 01/15/19 01:21 61 23 100 Bi-Pap 35 01/15/19 01:20 61 23 100 Facial 35 01/15/19 00:58 35 01/15/19 00:00 97.3 58 18 119/71 (87) 100 01/15/19 00:00 Nasal Cannula 2.0 01/15/19 00:00 81 01/14/19 23:15 59 23 99 Facial 35 01/14/19 20:58 55 113/75 01/14/19 20:38 85 22 99 Nasal Cannula 2.0 28 01/14/19 20:23 81 24 98 Nasal Cannula 2.0 28 01/14/19 20:22 98 Nasal Cannula 2.0 28 01/14/19 20:00 97.7 55 18 113/75 (88) 100 01/14/19 20:00 Nasal Cannula 2.0 01/14/19 20:00 92 Height (Feet): 5 Height (Inches): 7.00 Weight (Pounds): 188 General Appearance: WD/WN, no acute distress HEENT: normocephalic, atraumatic, anicteric, mucous membranes moist, PERRL Respiratory/Chest: chest wall non-tender, lungs clear, normal breath sounds, no respiratory distress, no accessory muscle use, decreased breath sounds Cardiovascular: normal peripheral pulses, normal rate, regular rhythm, no gallop/murmur, no JVD Abdomen: normal bowel sounds, soft, non tender, no organomegaly, non distended , no mass, no scars Extremities: no cyanosis, no clubbing Skin: no rash, no lesions, ulcers Neurologic/Psychiatric: alert, unresponsiveness, other - confused Lymphatic: no neck adenopathy, no groin adenopathy Musculoskeletal: normal muscle bulk, no effusion Microbiology Date/Time Source Procedure Growth Status 01/12/19 16:30 Blood Blood Culture - Preliminary NO GROWTH AFTER 48 HOURS Resulted 01/14/19 13:00 Sputum Expectorated Gram Stain - Final Resulted 01/14/19 13:00 Sputum Culture - Preliminary Staphylococcus Aureus Resulted 01/12/19 20:02 Nasal Nares MRSA Culture - Final Staphylococcus Aureus - Mrsa Complete 01/12/19 19:50 Nasal Nares - Final Complete 01/12/19 19:50 Nasal Nares - Final Complete 01/12/19 17:25 External Cath Urine Culture - Final Staphylococcus Aureus - Mrsa Complete 01/12/19 20:02 Rectum - Final NO CARBAPENEM-RESISTANT ENTEROBACTERI... Complete 01/12/19 20:02 Rectum VRE Culture - Final Enterococcus Faecalis - Vre Complete Laboratory Tests Test 01/15/19 05:20 White Blood Count 3.4 K/UL (4.8-10.8) L Red Blood Count 3.52 M/UL (4.70-6.10) L Hemoglobin 9.2 G/DL (14.2-18.0) L Hematocrit 29.6 % (42.0-52.0) L Mean Corpuscular Volume 84 FL (80-99) Mean Corpuscular Hemoglobin 26.0 PG (27.0-31.0) L Mean Corpuscular Hemoglobin Concent 30.9 G/DL (32.0-36.0) L Red Cell Distribution Width 19.2 % (11.6-14.8) H Platelet Count 129 K/UL (150-450) L Mean Platelet Volume 5.8 FL (6.5-10.1) L Neutrophils (%) (Auto) % (45.0-75.0) Lymphocytes (%) (Auto) % (20.0-45.0) Monocytes (%) (Auto) % (1.0-10.0) Eosinophils (%) (Auto) % (0.0-3.0) Basophils (%) (Auto) % (0.0-2.0) Differential Total Cells Counted 100 Neutrophils % (Manual) 79 % (45-75) H Lymphocytes % (Manual) 11 % (20-45) L Monocytes % (Manual) 6 % (1-10) Eosinophils % (Manual) 4 % (0-3) H Basophils % (Manual) 0 % (0-2) Band Neutrophils 0 % (0-8) Platelet Estimate Decreased L Platelet Morphology Normal Anisocytosis 1+ Sodium Level 143 MMOL/L (136-145) Potassium Level 3.3 MMOL/L (3.5-5.1) L Chloride Level 105 MMOL/L (98-107) Carbon Dioxide Level 32 MMOL/L (21-32) Anion Gap 6 mmol/L (5-15) Blood Urea Nitrogen 15 mg/dL (7-18) Creatinine 1.0 MG/DL (0.55-1.30) Estimat Glomerular Filtration Rate > 60 mL/min (>60) Glucose Level 80 MG/DL (74-106) Hemoglobin A1c 5.7 % (4.3-6.0) Uric Acid 6.3 MG/DL (2.6-7.2) Calcium Level 8.3 MG/DL (8.5-10.1) L Phosphorus Level 2.6 MG/DL (2.5-4.9) Magnesium Level 1.8 MG/DL (1.8-2.4) Iron Level 33 ug/dL (50-175) L Total Iron Binding Capacity 136 ug/dL (250-450) L Percent Iron Saturation 24 % (15-50) Unsaturated Iron Binding 103 ug/dL (112-346) L Ferritin 649 NG/ML (8-388) H Total Bilirubin 0.9 MG/DL (0.2-1.0) Gamma Glutamyl Transpeptidase 56 U/L (5-85) Aspartate Amino Transf (AST/SGOT) 23 U/L (15-37) Alanine Aminotransferase (ALT/SGPT) 11 U/L (12-78) L Alkaline Phosphatase 68 U/L (46-116) C-Reactive Protein, Quantitative 15.1 mg/dL (0.00-0.90) H Pro-B-Type Natriuretic Peptide 14774 pg/mL (0-125) H Total Protein 5.7 G/DL (6.4-8.2) L Albumin 1.6 G/DL (3.4-5.0) L Globulin 4.1 g/dL Albumin/Globulin Ratio 0.4 (1.0-2.7) L Triglycerides Level 65 MG/DL (30-150) Cholesterol Level 80 MG/DL (< 200) LDL Cholesterol 40 mg/dL (<100) HDL Cholesterol 31 MG/DL (40-60) L Cholesterol/HDL Ratio 2.6 (3.3-4.4) L Vitamin B12 Level 790 PG/ML (193-986) Folate 15.8 NG/ML (8.6-58.9) Thyroid Stimulating Hormone (TSH) 4.547 uiU/mL (0.358-3.740) Current Medications Medications (Trade) Dose Ordered Sig/Frankie Route PRN Reason Start Time Stop Time Status Last Admin Dose Admin Acetylcysteine (Mucomyst) 200 mg Q6HRT HHN 01/14/19 19:00 02/12/19 18:59 01/15/19 14:02 Albuterol/ Ipratropium (Albuterol/ Ipratropium) 3 ml Q4H PRN HHN Shortness of Breath 01/14/19 13:16 01/19/19 13:15 Albuterol/ Ipratropium (Albuterol/ Ipratropium) 3 ml Q6HRT HHN 01/14/19 19:00 01/18/19 14:59 01/15/19 14:01 Aspirin (Ecotrin) 81 mg DAILY ORAL 01/15/19 09:00 02/12/19 08:59 01/15/19 09:02 Carvedilol (Coreg) 3.125 mg EVERY 12 HOURS ORAL 01/14/19 15:15 02/13/19 15:14 01/15/19 09:03 Chlorhexidine Gluconate (Sallie-Hex 2%) 1 applic DAILY@2000 TOPIC 01/14/19 20:00 02/13/19 19:59 01/14/19 20:45 Dextrose (Dextrose 50%) 25 ml Q30M PRN IV Hypoglycemia 01/14/19 13:30 02/11/19 22:59 Dextrose (Dextrose 50%) 50 ml Q30M PRN IV Hypoglycemia 01/14/19 13:30 02/11/19 22:59 Hydromorphone HCl (Dilaudid) 1 mg Q4H PRN SUBQ Severe Pain (Pain Scale 7-10) 01/14/19 13:15 01/21/19 13:14 01/14/19 21:21 Lisinopril (Zestril) 2.5 mg DAILY ORAL 01/14/19 15:16 02/13/19 15:15 01/15/19 09:02 Meropenem 1 gm/ Sodium Chloride 55 ml @ 110 mls/hr Q8HR IVPB 01/14/19 14:00 01/18/19 21:59 01/15/19 14:52 Ondansetron HCl (Zofran) 4 mg Q6H PRN IVP Nausea & Vomiting 01/14/19 13:16 02/13/19 13:15 Pantoprazole (Protonix) 40 mg DAILY ORAL 01/15/19 09:00 02/13/19 08:59 01/15/19 09:02 Potassium Chloride (K-Dur) 40 meq DAILY ORAL 01/15/19 12:00 02/14/19 11:59 01/15/19 11:52 Rivaroxaban (Xarelto) 20 mg DAILY ORAL 01/15/19 09:00 02/13/19 08:59 01/15/19 09:03 Tamsulosin HCl (Flomax) 0.4 mg BEDTIME ORAL 01/14/19 21:00 02/13/19 20:59 01/14/19 20:45 Vancomycin HCl (Vanco rx to dose) 1 ea DAILY PRN MISC Per rx protocol 01/15/19 09:00 02/12/19 14:44 Vancomycin/Sodium Chloride 275 ml @ 183.333 mls/hr Q12HR@0300,1500 IVPB 01/14/19 15:00 01/19/19 14:59 01/15/19 15:49 Chema Perry M.D. Jan 15, 2019 16:23
--- NOTE | 2019-01-15 17:06 | Diagnostic Imaging Report ---
Clinical Indication: Hypoxia, healthcare associated pneumonia Technique: Spiral acquisitions obtained through the chest. No IV contrast utilized, reason not stated. Multiplanar reconstructions generated. Total dose length product a 73 mGycm. CTDIvol(s) 8 mGy. Dose reduction achieved using automated exposure control Comparison: none Findings: There are bilateral pleural effusions, moderate on the right, [id number] on the left. There is compressive atelectasis of significant portions of both lower lobes. The aerated lungs demonstrate diffuse interstitial septal thickening and groundglass opacity. There are also focal patchy or nodular opacities in the left upper lobe. The heart is massively enlarged. There is a pericardial effusion over the right atrium and surrounding the aortic root measuring up to 15 mm in thickness. There is a biventricular pacemaker. The main pulmonary artery is dilated, measuring 41 mm in diameter. The ascending thoracic aorta is mildly ectatic. There are numerous prominent mediastinal nodes. Right paratracheal nodes measure up to 22 mm long axis dimension and 15 mm short axis dimension. No definite hilar lymphadenopathy, although evaluation for such is limited given the absence of IV contrast. The esophagus is grossly unremarkable. There is a calcification in the right thyroid lower pole. There is generalized edema of the subcutaneous and mediastinal fat. Included upper abdominal anatomy is remarkable for the presence of ascites fluid. There is also extensive edema of the omental and retroperitoneal fat. Impression: Massive cardiomegaly Bilateral pleural effusions. Interstitial septal thickening and and ground lass opacities, probably on the basis of pulmonary edema. Nodular and irregular opacities in the left upper lobe likely a manifestation of the above, most likely represent focal areas of edema or consolidation, although mass lesion as etiology of any these not completely excludable. Pericardial effusion Mediastinal lymphadenopathy. This is nonspecific, could be reactive or neoplastic Evidence of anasarca elsewhere, with edema of the subcutaneous fat, ascites fluid, omental and retroperitoneal fat edema The CT scanner at [facility] is accredited by the [employer] and the scans are performed using protocols designed to limit radiation exposure to as low as reasonably achievable to attain images of sufficient resolution adequate for diagnostic evaluation.
--- NOTE | 2019-01-15 19:15 | NUR ---
NURSE NOTES: Received report from NIMCO Galicia, pt. in bed awake, A/O x's1- to name- Greek speaking. No signs or symptoms of acute cardiac or respiratory distress noted, bed alarm on, side rails up x's3 and safety brakes engaged, pt. appears to be resting comfortably- and appears to be clean and dry, pt. appears to be tolerating 2L NC- no distress noted, pt. has colostomy to left upper quadrant- intact and draining to gravity, Leon intact and draining to gravity, RT. IJ 20G intact and patent and rt. AC 20G intact and patent, safety measures continued, will continue with plan of care.
--- NOTE | 2019-01-15 19:28 | NUR ---
HAND-OFF: Report given to Merissa Christianson.
[2019-01-15 20:00] VITALS: BP 100/58
[2019-01-15] MEDS: Tamsulosin 0.4mg cap ORAL SCH (20:41)
[2019-01-15] MEDS: Dyna-Hex 2% Top Sol 2oz TOPIC SCH (20:41)
--- NOTE | 2019-01-15 22:39 | Cardiology Progress Note ---
Assessment/Plan Assessment/Plan 1. 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 Chest x-ray is more in favor of left hip hemithorax whiteout most likely as a possible cause of acute respiratory acidosis and pulmonary deterioration. A 2D echocardiography confirms severe cardiomyopathy with LVEF at 20%, with severe pulmonary HTN. 2. Status post HOU[employer] RN/defibrillator implantation most likely for primary prevention of sudden cardiac . 3. Most likely permanent atrial fibrillation, continue Xarelto. 4. Hypotension, resolved, out of ICU admitted to telemetry. 5. Status post colostomy bag placement. Subjective Subjective Atrial fibrillation at 88 with biventricular paced rhythm. Objective Last 24 Hour Vital Signs Date Time Temp Pulse Resp B/P (MAP) Pulse Ox O2 Delivery O2 Flow Rate FiO2 01/15/19 21:00 Nasal Cannula 3.0 01/15/19 20:41 88 100/58 01/15/19 20:00 98.2 86 16 100/58 (72) 97 01/15/19 19:35 87 01/15/19 19:24 96 Nasal Cannula 2.0 28 01/15/19 19:22 51 18 100 Nasal Cannula 2.0 28 46 18 96 01/15/19 16:00 Nasal Cannula 3.0 01/15/19 16:00 98.1 90 20 107/70 (82) 96 01/15/19 15:53 92 01/15/19 14:02 69 18 100 Nasal Cannula 2.0 28 62 18 99 01/15/19 12:52 83 01/15/19 12:29 Nasal Cannula 3.0 01/15/19 12:00 97.7 85 22 105/68 (80) 97 01/15/19 09:40 105 01/15/19 09:03 83 106/69 01/15/19 09:02 106/69 01/15/19 08:11 99 Nasal Cannula 2.0 28 01/15/19 08:10 70 18 100 Nasal Cannula 2.0 28 78 20 99 01/15/19 08:02 Nasal Cannula 3.0 01/15/19 08:01 97.5 83 20 106/69 (81) 94 01/15/19 07:49 82 01/15/19 05:18 76 23 98 Facial 35 01/15/19 04:00 97.0 59 16 105/66 (79) 100 01/15/19 04:00 82 01/15/19 04:00 Nasal Cannula 2.0 01/15/19 03:35 63 16 99 Facial 35 01/15/19 01:36 60 19 100 Bi-Pap 35 01/15/19 01:21 61 23 100 Bi-Pap 35 01/15/19 01:20 61 23 100 Facial 35 01/15/19 00:58 35 01/15/19 00:00 97.3 58 18 119/71 (87) 100 01/15/19 00:00 Nasal Cannula 2.0 01/15/19 00:00 81 01/14/19 23:15 59 23 99 Facial 35 Intake and Output 01/14/19 01/15/19 18:59 06:59 Intake Total 645.079 ml 1175.000 ml Output Total 410 ml 160 ml Balance 235.079 ml 1015.000 ml Intake Oral 20 ml 240 ml IV Total 625.079 ml 935.000 ml Output Urine Total 410 ml 160 ml # Bowel Movements 2 2D Echo: Dilated CM, LVEF 25%, Diastolic data unavail., Mod MR, RVSP 71 mmHg, RAP 15 Laboratory Tests Test 01/15/19 05:20 White Blood Count 3.4 K/UL (4.8-10.8) L Red Blood Count 3.52 M/UL (4.70-6.10) L Hemoglobin 9.2 G/DL (14.2-18.0) L Hematocrit 29.6 % (42.0-52.0) L Mean Corpuscular Volume 84 FL (80-99) Mean Corpuscular Hemoglobin 26.0 PG (27.0-31.0) L Mean Corpuscular Hemoglobin Concent 30.9 G/DL (32.0-36.0) L Red Cell Distribution Width 19.2 % (11.6-14.8) H Platelet Count 129 K/UL (150-450) L Mean Platelet Volume 5.8 FL (6.5-10.1) L Neutrophils (%) (Auto) % (45.0-75.0) Lymphocytes (%) (Auto) % (20.0-45.0) Monocytes (%) (Auto) % (1.0-10.0) Eosinophils (%) (Auto) % (0.0-3.0) Basophils (%) (Auto) % (0.0-2.0) Differential Total Cells Counted 100 Neutrophils % (Manual) 79 % (45-75) H Lymphocytes % (Manual) 11 % (20-45) L Monocytes % (Manual) 6 % (1-10) Eosinophils % (Manual) 4 % (0-3) H Basophils % (Manual) 0 % (0-2) Band Neutrophils 0 % (0-8) Platelet Estimate Decreased L Platelet Morphology Normal Anisocytosis 1+ Sodium Level 143 MMOL/L (136-145) Potassium Level 3.3 MMOL/L (3.5-5.1) L Chloride Level 105 MMOL/L (98-107) Carbon Dioxide Level 32 MMOL/L (21-32) Anion Gap 6 mmol/L (5-15) Blood Urea Nitrogen 15 mg/dL (7-18) Creatinine 1.0 MG/DL (0.55-1.30) Estimat Glomerular Filtration Rate > 60 mL/min (>60) Glucose Level 80 MG/DL (74-106) Hemoglobin A1c 5.7 % (4.3-6.0) Uric Acid 6.3 MG/DL (2.6-7.2) Calcium Level 8.3 MG/DL (8.5-10.1) L Phosphorus Level 2.6 MG/DL (2.5-4.9) Magnesium Level 1.8 MG/DL (1.8-2.4) Iron Level 33 ug/dL (50-175) L Total Iron Binding Capacity 136 ug/dL (250-450) L Percent Iron Saturation 24 % (15-50) Unsaturated Iron Binding 103 ug/dL (112-346) L Ferritin 649 NG/ML (8-388) H Total Bilirubin 0.9 MG/DL (0.2-1.0) Gamma Glutamyl Transpeptidase 56 U/L (5-85) Aspartate Amino Transf (AST/SGOT) 23 U/L (15-37) Alanine Aminotransferase (ALT/SGPT) 11 U/L (12-78) L Alkaline Phosphatase 68 U/L (46-116) C-Reactive Protein, Quantitative 15.1 mg/dL (0.00-0.90) H Pro-B-Type Natriuretic Peptide 85461 pg/mL (0-125) H Total Protein 5.7 G/DL (6.4-8.2) L Albumin 1.6 G/DL (3.4-5.0) L Globulin 4.1 g/dL Albumin/Globulin Ratio 0.4 (1.0-2.7) L Triglycerides Level 65 MG/DL (30-150) Cholesterol Level 80 MG/DL (< 200) LDL Cholesterol 40 mg/dL (<100) HDL Cholesterol 31 MG/DL (40-60) L Cholesterol/HDL Ratio 2.6 (3.3-4.4) L Vitamin B12 Level 790 PG/ML (193-986) Folate 15.8 NG/ML (8.6-58.9) Thyroid Stimulating Hormone (TSH) 4.547 uiU/mL (0.358-3.740) Microbiology Date/Time Source Procedure Growth Status 01/14/19 13:00 Sputum Expectorated Gram Stain - Final Resulted 01/14/19 13:00 Sputum Culture - Preliminary Staphylococcus Aureus Resulted Saul Chino MD Jan 15, 2019 22:39
[2019-01-16] VITALS: BP 100/59
--- NOTE | 2019-01-16 00:43 | NUR ---
NURSE NOTES: bed bath given- and linens changed- rt. wrist restraint removed- skin intact and pulses palpable. repositioned and turned patient- comfort measures provided.
--- NOTE | 2019-01-16 00:59 | NUR ---
NURSE NOTES: Received report from NIMCO Parker. Patient is awake, lying in semi lara's; resting comfortably. A/Ox1. Primarily Thai speaking. Denies pain at this time. No signs of acute cardiorespiratory distress noted. Checked IV site and flushed. No erythema, bleeding or infiltration noted. On beach catheter draining well to gravity. On soft right wrist restraint. Noted to have good skin and circulation. Bed at lowest position, brakes on, siderails x3. Call light within reach. Will continue to monitor. Addendum: 01/17/19 at 0113 by Aislinn Newman RN Wrong time
[2019-01-16] MEDS: Albuterol/Ipratropium 3ml neb HHN SCH ×4 (01:13→19:25)
[2019-01-16] MEDS: Acetylcysteine 20% Soln 4ml HHN SCH ×4 (01:13→19:25)
[2019-01-16 03:55] VITALS: BP 126/58
[2019-01-16] MEDS: Meropenem 1 GM in NS 55 ML IVPB SCH (05:00)
--- NOTE | 2019-01-16 07:19 | NUR ---
HAND-OFF: Report given to Lia Christianson, pt. remains stable and no signs of distress noted.
--- NOTE | 2019-01-16 07:20 | NUR ---
NURSE NOTES: Received bedside report from Fox RINALDI. Pt. in bed, awake, a/o x 1, confused. No sign of distress. No grimacing noted. Right hand with soft wrist in placed. CMS intact. Right IJ with 3 lumen in placed patent/intact. Right AC #20g. in placed SL. Bed in low position, locked. Bed alarm on. Call light within reach. Will cont. to monitor.
[2019-01-16 08:00] VITALS: BP 95/59
[2019-01-16] MEDS: Xarelto 10mg tab ORAL SCH (08:55)
[2019-01-16] MEDS: Aspirin EC 81mg tab ORAL SCH (08:55)
[2019-01-16] MEDS: Lisinopril 2.5mg tab ORAL SCH (08:57)
--- NOTE | 2019-01-16 09:28 | NUR ---
CASE MANAGEMENT: REVIEW 01/16/19 SI:PNA ; UTI ; SEPTIC SHOCK; AMS PMH: END STAGE HEART FAILURE 97.5 62 20 95/59 98% NC 2L VANCO 26.9 01/15 BNP 61769; C-REC. PROT 15.1; FERR [id number]; IS: K-DUR PO QD IV DEXTROSE @50HR IV VANCOMYCIN Q12HR IV MEROPENEM Q8HR COREG PO Q12HR LISINOPRIL PO QD DILAUDID SQ Q4/PRN ALBUTEROL HHN Q6HR ASPIRIN PO QD PROTONIX PO QD XARELTO PO QD FLOMAX PO HS : TO TELE UNIT DCP: RETURN TO [facility] PLAN: DR. ASHRAF TO CONSULT - HEMAT may need bronchoscopy LUNG COLLAPSE
[2019-01-16 12:00] VITALS: BP 105/67
--- NOTE | 2019-01-16 12:11 | NUR ---
*-* INSURANCE *-* ALL AVAILABLE CLINICALS HAVE BEEN FAXED TO: [employer] P- [phone] F- [phone]...REVIEW/CLINICAL
--- NOTE | 2019-01-16 13:12 | Nephrology Progress Note ---
Assessment/Plan Problem List: (1) Pacemaker (2) Paroxysmal atrial fibrillation (3) Cardiomyopathy (4) UTI (urinary tract infection) Assessment UTI Proteinuria Cardiomyopathy low Ej Fx, CHF Hypoxia Encephalopathy Pulmonary hypertension H/O: stroke Colostomy in place Pacemaker Paroxysmal atrial fibrillation Healthcare-associated pneumonia Lung collapse Plan no labs today K supplement DC IV fluid Pulmonary support Stablize cardiac status Monitor lytes and renal parameters Per consultants Subjective ROS Limited/Unobtainable: No Constitutional: Reports: malaise Objective Objective Last 24 Hour Vital Signs Date Time Temp Pulse Resp B/P (MAP) Pulse Ox O2 Delivery O2 Flow Rate FiO2 01/16/19 12:35 64 18 99 Nasal Cannula 2.0 28 63 18 98 01/16/19 09:00 Nasal Cannula 3.0 01/16/19 08:57 95/59 01/16/19 08:56 62 95/59 01/16/19 08:00 97.5 62 20 95/59 (71) 95 01/16/19 07:50 86 01/16/19 07:40 59 18 99 Nasal Cannula 2.0 28 57 18 98 01/16/19 07:40 98 Nasal Cannula 2.0 28 01/16/19 05:28 65 20 97 Full Face 35 01/16/19 03:55 97.9 88 20 126/58 (80) 100 01/16/19 03:29 93 01/16/19 03:12 68 22 98 Full Face 35 01/16/19 01:14 74 24 99 Full Face 35 74 22 99 Bi-Pap 35 01/16/19 00:00 35 01/16/19 00:00 97.9 79 22 100/59 (73) 98 01/15/19 23:30 69 36 98 Full Face 35 01/15/19 23:30 35 01/15/19 23:29 93 01/15/19 21:00 Nasal Cannula 3.0 01/15/19 20:41 88 100/58 01/15/19 20:00 3.0 01/15/19 20:00 98.2 86 16 100/58 (72) 97 01/15/19 19:35 87 01/15/19 19:24 96 Nasal Cannula 2.0 28 01/15/19 19:22 51 18 100 Nasal Cannula 2.0 28 46 18 96 01/15/19 16:00 Nasal Cannula 3.0 01/15/19 16:00 98.1 90 20 107/70 (82) 96 01/15/19 15:53 92 01/15/19 14:02 69 18 100 Nasal Cannula 2.0 28 62 18 99 Intake and Output 01/15/19 01/16/19 19:00 07:00 Intake Total 480 ml 110 ml Output Total 150 ml 175 ml Balance 330 ml -65 ml Intake Oral 480 ml IV Total 110 ml Output Urine Total 150 ml 175 ml # Bowel Movements 1 2 Laboratory Tests 01/16/19 02:00: Vancomycin Level Trough 26.9H Height (Feet): 5 Height (Inches): 7.00 Weight (Pounds): 193 General Appearance: no apparent distress, confused Cardiovascular: normal rate Respiratory/Chest: decreased breath sounds Abdomen: distended Migel Baltazar MD Jan 16, 2019 13:12
--- NOTE | 2019-01-16 14:20 | Pulmonology Progress Note ---
Assessment/Plan Problems: (1) Hypoxia (2) Healthcare-associated pneumonia (3) CHF (congestive heart failure) (4) Pulmonary hypertension (5) AMS (altered mental status) (6) UTI (urinary tract infection) (7) Cardiomyopathy (8) Dementia (9) Encephalopathy (10) Paroxysmal atrial fibrillation (11) Pacemaker Assessment/Plan Optimize pulmonary hygiene/mobilize as tolerated Titrate FiO2 to keep SaO2 > 90% RTC and PRN DUOnebs Mucomyst CPT Ana per ID, F/U Cx's Monitor volumes and renal function, start Lasix 40 mg IV qDaily, replete K Aspiration precautions, M[employer] INSTRUMENTS recs Monitor MS DVT Px: NOAC DNAR, continue to discuss GOC Subjective Allergies: Coded Allergies: PENICILLINS (Verified Allergy, Unknown, 01/12/19) Subjective AFVSS on 2-3L in rate controlled AF CT with B effusions compressive atx anasarca and ascites BNP increase + cough + SOB no FC no CP Objective Last 24 Hour Vital Signs Date Time Temp Pulse Resp B/P (MAP) Pulse Ox O2 Delivery O2 Flow Rate FiO2 01/16/19 12:35 64 18 99 Nasal Cannula 2.0 28 63 18 98 01/16/19 09:00 Nasal Cannula 3.0 01/16/19 08:57 95/59 01/16/19 08:56 62 95/59 01/16/19 08:00 97.5 62 20 95/59 (71) 95 01/16/19 07:50 86 01/16/19 07:40 59 18 99 Nasal Cannula 2.0 28 57 18 98 01/16/19 07:40 98 Nasal Cannula 2.0 28 01/16/19 05:28 65 20 97 Full Face 35 01/16/19 03:55 97.9 88 20 126/58 (80) 100 01/16/19 03:29 93 01/16/19 03:12 68 22 98 Full Face 35 01/16/19 01:14 74 24 99 Full Face 35 74 22 99 Bi-Pap 35 01/16/19 00:00 35 01/16/19 00:00 97.9 79 22 100/59 (73) 98 01/15/19 23:30 69 36 98 Full Face 35 01/15/19 23:30 35 01/15/19 23:29 93 01/15/19 21:00 Nasal Cannula 3.0 01/15/19 20:41 88 100/58 01/15/19 20:00 3.0 01/15/19 20:00 98.2 86 16 100/58 (72) 97 01/15/19 19:35 87 01/15/19 19:24 96 Nasal Cannula 2.0 28 01/15/19 19:22 51 18 100 Nasal Cannula 2.0 28 46 18 96 01/15/19 16:00 Nasal Cannula 3.0 01/15/19 16:00 98.1 90 20 107/70 (82) 96 01/15/19 15:53 92 Intake and Output 01/15/19 01/16/19 19:00 07:00 Intake Total 480 ml 110 ml Output Total 150 ml 175 ml Balance 330 ml -65 ml Intake Oral 480 ml IV Total 110 ml Output Urine Total 150 ml 175 ml # Bowel Movements 1 2 General Appearance: no acute distress, cachetic HEENT: normocephalic, atraumatic, anicteric, mucous membranes moist, other - JVD Respiratory/Chest: crackles/rales Cardiovascular: irregularly irregular Abdomen: normal bowel sounds, soft, non tender, no organomegaly, non distended Extremities: no cyanosis, no clubbing, other - + MANFRED Microbiology Date/Time Source Procedure Growth Status 01/14/19 13:00 Sputum Expectorated Gram Stain - Final Resulted 01/14/19 13:00 Sputum Culture - Preliminary Staphylococcus Aureus Venessa Albicans Resulted Laboratory Tests 01/16/19 02:00: Vancomycin Level Trough 26.9H Current Medications Medications (Trade) Dose Ordered Sig/Frankie Route PRN Reason Start Time Stop Time Status Last Admin Dose Admin Acetylcysteine (Mucomyst) 200 mg Q6HRT HHN 01/14/19 19:00 02/12/19 18:59 01/16/19 12:35 Albuterol/ Ipratropium (Albuterol/ Ipratropium) 3 ml Q4H PRN HHN Shortness of Breath 01/14/19 13:16 01/19/19 13:15 Albuterol/ Ipratropium (Albuterol/ Ipratropium) 3 ml Q6HRT HHN 01/14/19 19:00 01/18/19 14:59 01/16/19 12:35 Aspirin (Ecotrin) 81 mg DAILY ORAL 01/15/19 09:00 02/12/19 08:59 01/16/19 08:55 Carvedilol (Coreg) 3.125 mg EVERY 12 HOURS ORAL 01/14/19 15:15 02/13/19 15:14 01/15/19 20:41 Chlorhexidine Gluconate (Sallie-Hex 2%) 1 applic DAILY@2000 TOPIC 01/14/19 20:00 02/13/19 19:59 01/15/19 20:41 Dextrose (Dextrose 50%) 25 ml Q30M PRN IV Hypoglycemia 01/14/19 13:30 02/11/19 22:59 Dextrose (Dextrose 50%) 50 ml Q30M PRN IV Hypoglycemia 01/14/19 13:30 02/11/19 22:59 Hydromorphone HCl (Dilaudid) 1 mg Q4H PRN SUBQ Severe Pain (Pain Scale 7-10) 01/14/19 13:15 01/21/19 13:14 01/14/19 21:21 Lisinopril (Zestril) 2.5 mg DAILY ORAL 01/14/19 15:16 02/13/19 15:15 01/15/19 09:02 Meropenem 1 gm/ Sodium Chloride 55 ml @ 110 mls/hr Q8HR IVPB 01/14/19 14:00 01/18/19 21:59 01/16/19 05:00 Ondansetron HCl (Zofran) 4 mg Q6H PRN IVP Nausea & Vomiting 01/14/19 13:16 02/13/19 13:15 Pantoprazole (Protonix) 40 mg DAILY ORAL 01/15/19 09:00 02/13/19 08:59 01/16/19 08:55 Potassium Chloride (K-Dur) 40 meq DAILY ORAL 01/15/19 12:00 02/14/19 11:59 01/16/19 08:56 Rivaroxaban (Xarelto) 20 mg DAILY ORAL 01/15/19 09:00 02/13/19 08:59 01/16/19 08:55 Tamsulosin HCl (Flomax) 0.4 mg BEDTIME ORAL 01/14/19 21:00 02/13/19 20:59 01/15/19 20:41 Vancomycin HCl (Vanco rx to dose) 1 ea DAILY PRN MISC Per rx protocol 01/15/19 09:00 02/12/19 14:44 Vancomycin HCl 750 mg/Dextrose 275 ml @ 184 mls/hr Q12H IVPB 01/16/19 15:00 01/21/19 14:59 James Maynard MD Jan 16, 2019 14:20
--- NOTE | 2019-01-16 15:37 | NUR ---
HAND-OFF: Report given to Elena RINALDI. Pt. remain stable.
[2019-01-16] MEDS: Vancomycin 750 MG in D5W 275 ML IVPB SCH (15:38)
--- NOTE | 2019-01-16 15:41 | Infectious Diseases Prog Note ---
Assessment/Plan Problems: (1) Pneumonia involving left lung Assessment & Plan: with methicillin resistant staph aureus , and right upper lobe consolidation , will continue vancomycin dosed as per pharmacy for three weeks total and stop meropenem empirically , . suctioning as needed. mile growth is a colonization most likely , and no need to treat . EOT 02/03/19 (2) UTI (urinary tract infection) Assessment & Plan: due to MRSA too already on vancomycin, stop , meropenem (3) Septic shock Assessment & Plan: due to the above, improving, continue wide spectrum antibiotics .blood culture is negative (4) Lung collapse Assessment & Plan: mucous plug VS transbronchial mass , continue agressive suctioning and nebulizers, he is comfort measures and on hospice care (5) AMS (altered mental status) Assessment & Plan: suspect metabolic due to the above , continue blood pressure support and wide spectrum antibiotics , monitor in tele Subjective ROS Limited/Unobtainable: Yes Allergies: Coded Allergies: PENICILLINS (Verified Allergy, Unknown, 01/12/19) Subjective He was resting in bed, afebrile, confused on restrains, has mild cough no SOB, no diarrhea , no fever Objective Vital Signs Last 24 Hour Vital Signs Date Time Temp Pulse Resp B/P (MAP) Pulse Ox O2 Delivery O2 Flow Rate FiO2 01/16/19 12:35 64 18 99 Nasal Cannula 2.0 28 63 18 98 01/16/19 12:00 97.3 47 20 105/67 (80) 93 01/16/19 11:44 84 01/16/19 09:00 Nasal Cannula 3.0 01/16/19 08:57 95/59 01/16/19 08:56 62 95/59 01/16/19 08:00 97.5 62 20 95/59 (71) 95 01/16/19 07:50 86 01/16/19 07:40 59 18 99 Nasal Cannula 2.0 28 57 18 98 01/16/19 07:40 98 Nasal Cannula 2.0 28 01/16/19 05:28 65 20 97 Full Face 35 01/16/19 03:55 97.9 88 20 126/58 (80) 100 01/16/19 03:29 93 01/16/19 03:12 68 22 98 Full Face 35 01/16/19 01:14 74 24 99 Full Face 35 74 22 99 Bi-Pap 35 01/16/19 00:00 35 01/16/19 00:00 97.9 79 22 100/59 (73) 98 01/15/19 23:30 69 36 98 Full Face 35 01/15/19 23:30 35 01/15/19 23:29 93 01/15/19 21:00 Nasal Cannula 3.0 01/15/19 20:41 88 100/58 01/15/19 20:00 3.0 01/15/19 20:00 98.2 86 16 100/58 (72) 97 01/15/19 19:35 87 01/15/19 19:24 96 Nasal Cannula 2.0 28 01/15/19 19:22 51 18 100 Nasal Cannula 2.0 28 46 18 96 01/15/19 16:00 Nasal Cannula 3.0 01/15/19 16:00 98.1 90 20 107/70 (82) 96 01/15/19 15:53 92 Height (Feet): 5 Height (Inches): 7.00 Weight (Pounds): 193 General Appearance: WD/WN, no acute distress HEENT: normocephalic, atraumatic, anicteric, mucous membranes moist Respiratory/Chest: normal breath sounds, no respiratory distress, no accessory muscle use, decreased breath sounds, crackles/rales Cardiovascular: normal peripheral pulses, normal rate, regular rhythm, no gallop/murmur, no JVD Abdomen: normal bowel sounds, soft, non tender, no organomegaly, non distended , no mass, no scars Genitourinary: normal external genitalia Extremities: no cyanosis, no clubbing Skin: no rash, no lesions Neurologic/Psychiatric: alert, unresponsiveness, other - confused Lymphatic: no neck adenopathy, no groin adenopathy Musculoskeletal: normal muscle bulk, no effusion Microbiology Date/Time Source Procedure Growth Status 01/14/19 13:00 Sputum Expectorated Gram Stain - Final Resulted 01/14/19 13:00 Sputum Culture - Preliminary Staphylococcus Aureus Mile Albicans Resulted Laboratory Tests Test 01/16/19 02:00 Vancomycin Level Trough 26.9 ug/mL (5.0-12.0) H Current Medications Medications (Trade) Dose Ordered Sig/Frankie Route PRN Reason Start Time Stop Time Status Last Admin Dose Admin Acetylcysteine (Mucomyst) 200 mg Q6HRT HHN 01/14/19 19:00 02/12/19 18:59 01/16/19 12:35 Albuterol/ Ipratropium (Albuterol/ Ipratropium) 3 ml Q4H PRN HHN Shortness of Breath 01/14/19 13:16 01/19/19 13:15 Albuterol/ Ipratropium (Albuterol/ Ipratropium) 3 ml Q6HRT HHN 01/14/19 19:00 01/18/19 14:59 01/16/19 12:35 Aspirin (Ecotrin) 81 mg DAILY ORAL 01/15/19 09:00 02/12/19 08:59 01/16/19 08:55 Carvedilol (Coreg) 3.125 mg EVERY 12 HOURS ORAL 01/14/19 15:15 02/13/19 15:14 01/15/19 20:41 Chlorhexidine Gluconate (Sallie-Hex 2%) 1 applic DAILY@2000 TOPIC 01/14/19 20:00 02/13/19 19:59 01/15/19 20:41 Dextrose (Dextrose 50%) 25 ml Q30M PRN IV Hypoglycemia 01/14/19 13:30 02/11/19 22:59 Dextrose (Dextrose 50%) 50 ml Q30M PRN IV Hypoglycemia 01/14/19 13:30 02/11/19 22:59 Furosemide (Lasix) 40 mg DAILY IV 01/17/19 09:00 02/16/19 08:59 Hydromorphone HCl (Dilaudid) 1 mg Q4H PRN SUBQ Severe Pain (Pain Scale 7-10) 01/14/19 13:15 01/21/19 13:14 01/14/19 21:21 Lisinopril (Zestril) 2.5 mg DAILY ORAL 01/14/19 15:16 02/13/19 15:15 01/15/19 09:02 Meropenem 1 gm/ Sodium Chloride 55 ml @ 110 mls/hr Q8HR IVPB 01/14/19 14:00 01/18/19 21:59 01/16/19 05:00 Ondansetron HCl (Zofran) 4 mg Q6H PRN IVP Nausea & Vomiting 01/14/19 13:16 02/13/19 13:15 Pantoprazole (Protonix) 40 mg DAILY ORAL 01/15/19 09:00 02/13/19 08:59 01/16/19 08:55 Potassium Chloride (K-Dur) 40 meq DAILY ORAL 01/15/19 12:00 02/14/19 11:59 01/16/19 08:56 Rivaroxaban (Xarelto) 20 mg DAILY ORAL 01/15/19 09:00 02/13/19 08:59 01/16/19 08:55 Tamsulosin HCl (Flomax) 0.4 mg BEDTIME ORAL 01/14/19 21:00 02/13/19 20:59 01/15/19 20:41 Vancomycin HCl (Vanco rx to dose) 1 ea DAILY PRN MISC Per rx protocol 01/15/19 09:00 02/12/19 14:44 Vancomycin HCl 750 mg/Dextrose 275 ml @ 184 mls/hr Q12H IVPB 01/16/19 15:00 01/21/19 14:59 Chema Perry M.D. Jan 16, 2019 15:41
[2019-01-16 16:00] VITALS: BP 121/72
--- NOTE | 2019-01-16 19:24 | NUR ---
HAND-OFF: Report given to NIMCO Tao. Pt is in stable condition; plan of care endorsed.
--- NOTE | 2019-01-16 19:25 | NUR ---
NURSE NOTES: Received report from NIMCO Parker. Patient is awake, lying in semi lara's; resting comfortably. A/Ox1. Primarily Albanian speaking. Denies pain at this time. No signs of acute cardiorespiratory distress noted. Checked IV site and flushed. No erythema, bleeding or infiltration noted. On beach catheter draining well to gravity. On soft right wrist restraint with good skin and circulation. Bed at lowest position, brakes on, siderails x3. Call light within reach. Will continue to monitor. Addendum: 01/17/19 at 0211 by Aislinn Newman RN With TLC at [facility] and PIV at [facility]. With colostomy bag at Q abdomen draining to vargas liquid stool and stoma is pinkish in color. Sutures noted at right eyebrow.
[2019-01-16 20:00] VITALS: BP 102/71
[2019-01-16] MEDS: Tamsulosin 0.4mg cap ORAL SCH (21:13)
[2019-01-16] MEDS: Dyna-Hex 2% Top Sol 2oz TOPIC SCH (21:13)
--- NOTE | 2019-01-16 21:56 | General Progress Note ---
Assessment/Plan Status: not improved Assessment/Plan: S: not verbal O: seem comfortable. poor historian, awake, limited follow the commands. On Nasal canula, Leon. on soft restraint PHYSICAL EXAMINATION:HEAD AND NECK: Atraumatic and normocephalic. CHEST: diffuse bronchial bs.HEART: S1, S2. Regular rate and rhythm. ABDOMEN: Soft. No organomegaly.MUSCULOSKELETAL: No gross lateralized motor deficit. NEUROLOGY: The patient is awake , limied exam Meds and labs dated Jan 15 reviewed ASSESSMENT AND PLAN: 1. Acute respiratory failure. 2. Sepsis secondary to healthcare-associated UTI/pneumonia. 3. CVA, history of left-sided territory involvement. 4. Acute on chronic Anemia. 5. Cardiomyopathy. 6. Hypernatremia. 7. GI and DVT prophylaxis. 8. DNR and DNI. PLAN OF CARE: NOtes from Pulmonary, ID, Nephro, are rearview current empirical abx pending stool OB uptitrate the diuresis Subjective Allergies: Coded Allergies: PENICILLINS (Verified Allergy, Unknown, 01/12/19) Objective Last 24 Hour Vital Signs Date Time Temp Pulse Resp B/P (MAP) Pulse Ox O2 Delivery O2 Flow Rate FiO2 01/16/19 21:00 50 102/71 01/16/19 19:27 97 Nasal Cannula 2.0 28 01/16/19 19:25 63 18 99 Nasal Cannula 2.0 62 18 97 01/16/19 16:00 89 01/16/19 16:00 98.9 46 20 121/72 (88) 97 01/16/19 12:35 64 18 99 Nasal Cannula 2.0 28 63 18 98 01/16/19 12:00 97.3 47 20 105/67 (80) 93 01/16/19 11:44 84 01/16/19 09:00 Nasal Cannula 3.0 01/16/19 08:57 95/59 01/16/19 08:56 62 95/59 01/16/19 08:00 97.5 62 20 95/59 (71) 95 01/16/19 07:50 86 01/16/19 07:40 59 18 99 Nasal Cannula 2.0 28 57 18 98 01/16/19 07:40 98 Nasal Cannula 2.0 28 01/16/19 05:28 65 20 97 Full Face 35 01/16/19 03:55 97.9 88 20 126/58 (80) 100 01/16/19 03:29 93 01/16/19 03:12 68 22 98 Full Face 35 01/16/19 01:14 74 24 99 Full Face 35 74 22 99 Bi-Pap 35 01/16/19 00:00 35 01/16/19 00:00 97.9 79 22 100/59 (73) 98 01/15/19 23:30 69 36 98 Full Face 35 01/15/19 23:30 35 01/15/19 23:29 93 Intake and Output 01/15/19 01/16/19 19:00 07:00 Intake Total 480 ml 110 ml Output Total 150 ml 175 ml Balance 330 ml -65 ml Intake Oral 480 ml IV Total 110 ml Output Urine Total 150 ml 175 ml # Bowel Movements 1 2 Laboratory Tests 01/16/19 02:00: Vancomycin Level Trough 26.9H 01/16/19 21:00: Stool Occult Blood [Pending] Height (Feet): 5 Height (Inches): 7.00 Weight (Pounds): 193 Preston Geiger MD Jan 16, 2019 21:56
--- NOTE | 2019-01-16 23:56 | Cardiology Progress Note ---
Assessment/Plan Assessment/Plan 1. 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 Chest x-ray is more in favor of left hemithorax whiteout most likely as a possible cause of acute respiratory acidosis and pulmonary deterioration. A 2D echocardiography confirms severe cardiomyopathy with LVEF at 20%, with severe pulmonary HTN. 2. Status post RENDERING EQUIPMENT TENDER/defibrillator implantation most likely for primary prevention of sudden cardiac . 3. Most likely permanent atrial fibrillation, continue Xarelto. 4. Hypotension, resolved. 5. Status post colostomy bag placement. Subjective Subjective Atrial fibrillation at 77 with biventricular paced rhythm. Objective Last 24 Hour Vital Signs Date Time Temp Pulse Resp B/P (MAP) Pulse Ox O2 Delivery O2 Flow Rate FiO2 01/16/19 22:58 77 26 98 Full Face 35 01/16/19 21:00 50 102/71 01/16/19 21:00 Nasal Cannula 3.0 01/16/19 20:00 98.4 50 20 102/71 (81) 98 01/16/19 20:00 95 01/16/19 19:27 97 Nasal Cannula 2.0 28 01/16/19 19:25 63 18 99 Nasal Cannula 2.0 28 62 18 97 01/16/19 16:00 89 01/16/19 16:00 98.9 46 20 121/72 (88) 97 01/16/19 12:35 64 18 99 Nasal Cannula 2.0 28 63 18 98 01/16/19 12:00 97.3 47 20 105/67 (80) 93 01/16/19 11:44 84 01/16/19 09:00 Nasal Cannula 3.0 01/16/19 08:57 95/59 01/16/19 08:56 62 95/59 01/16/19 08:00 97.5 62 20 95/59 (71) 95 01/16/19 07:50 86 01/16/19 07:40 59 18 99 Nasal Cannula 2.0 28 57 18 98 01/16/19 07:40 98 Nasal Cannula 2.0 28 01/16/19 05:28 65 20 97 Full Face 35 01/16/19 03:55 97.9 88 20 126/58 (80) 100 01/16/19 03:29 93 01/16/19 03:12 68 22 98 Full Face 35 01/16/19 01:14 74 24 99 Full Face 35 74 22 99 Bi-Pap 35 01/16/19 00:00 35 01/16/19 00:00 97.9 79 22 100/59 (73) 98 Intake and Output 01/15/19 01/16/19 19:00 07:00 Intake Total 480 ml 110 ml Output Total 150 ml 175 ml Balance 330 ml -65 ml Intake Oral 480 ml IV Total 110 ml Output Urine Total 150 ml 175 ml # Bowel Movements 1 2 2D Echo: Dilated CM, LVEF 25%, Diastolic data unavail., Mod MR, RVSP 71 mmHg, RAP 15 Laboratory Tests Test 01/16/19 02:00 01/16/19 21:00 Vancomycin Level Trough 26.9 ug/mL (5.0-12.0) H Stool Occult Blood Pending Microbiology Date/Time Source Procedure Growth Status 01/14/19 13:00 Sputum Expectorated Gram Stain - Final Resulted 01/14/19 13:00 Sputum Culture - Preliminary Staphylococcus Aureus Venessa Albicans Resulted Objective HEENT: Atraumatic and normocephalic. Anicteric. Pupils are equal, round, and reactive to light and accommodation. Extraocular muscles intact. There is a healed laceration above the right eye, some erythematous changes superior to the right orbit. NECK: JVP less than 5 cm. No carotid bruit. Carotid upstroke is 2+ bilaterally. CVS: Normal S1 and S2. Regular rate and rhythm. No murmurs, gallops, or rubs. LUNGS: Rhonchi bilaterally with poor inspiratory effort. ABDOMEN: Soft, nontender, and nondistended. Left-sided colostomy bag is seen. EXTREMITIES: No evidence of edema, clubbing, or cyanosis. There is multiple diffuse ecchymosis on the lower extremities dressing covering the right lower leg wound which appears to be clean, dry, and intact. Saul Chino MD Jan 16, 2019 23:56
[2019-01-17] VITALS: BP 104/75
[2019-01-17] MEDS: Acetylcysteine 20% Soln 4ml HHN SCH ×2 (01:09→06:42)
[2019-01-17] MEDS: Albuterol/Ipratropium 3ml neb HHN SCH ×2 (01:09→06:42)
--- NOTE | 2019-01-17 01:14 | NUR ---
NURSE NOTES: Resting throughout the night. No significant change of condition noted. Will continue to monitor.
[2019-01-17] MEDS: Vancomycin 750 MG in D5W 275 ML IVPB SCH (02:43)
[2019-01-17 04:00] VITALS: BP 116/70
--- NOTE | 2019-01-17 06:06 | Hematology/Onc Progress Note ---
Assessment/Plan Assessment/Plan # Pancytopenia -- new onset, appears worsened since admission, with counts downtrending, may be med related but will r/o structural issues --> have ordered for hepatitis panel and hiv --> us of the abdomen ordered as well, r/o cirrhosis --> does have chf which may cause anasarca but shouldn't cause pancytopenia --> anc goal >1500, neupogen if needed --> anemia panel to be reviewed from admission --> transfuse to hgb >8 given chf as per cards # Lymphadenopathy, prominent mediastinal nodes. Right paratracheal nodes measure up to 22 mm long axis dimension and 15 mm short axis dimension. No definite hilar lymphadenopathy, although evaluation for such is limited given the absence of IV contrast. The esophagus is grossly unremarkable. --> at this time obtain cea and ca19.9 --> age appropriate cancer screening --> rescan with ct in approx 3 mo to followup # Secondary hypercoagulable disorder --> monitor for bleed --> as per cards, agree with xarelto for primary prevention # Chronic systolic and diastolic congestive heart failure, is not clear whether the patient's hypoxia is due to acute exacerbation of chronic heart failure. Chest x-ray is more in favor of left hemithorax whiteout most likely as a possible cause of acute respiratory acidosis and pulmonary deterioration. A 2D echocardiography confirms severe cardiomyopathy with LVEF at 20%, with severe pulmonary HTN. --> as per cards recs # Status post MANAGER CARDIAC/defibrillator implantation most likely for primary prevention of sudden cardiac . # Permanent atrial fibrillation, continue Xarelto. # Hypotension, resolved. # Status post colostomy bag placement. # UTi -- sp abx # Proteinuria as per nephro management # Dvt ppx with xarelto Appreciate consultation and MARV RN. Subjective Allergies: Coded Allergies: PENICILLINS (Verified Allergy, Unknown, 01/12/19) Subjective 01/17: no events, nonverbal, labs lower from yesterday, no f/c, on abx Objective Objective Current Medications Medications (Trade) Dose Ordered Sig/Frankie Route PRN Reason Start Time Stop Time Status Last Admin Dose Admin Acetylcysteine (Mucomyst) 200 mg Q6HRT HHN 01/14/19 19:00 02/12/19 18:59 01/17/19 01:09 Albuterol/ Ipratropium (Albuterol/ Ipratropium) 3 ml Q4H PRN HHN Shortness of Breath 01/14/19 13:16 01/19/19 13:15 Albuterol/ Ipratropium (Albuterol/ Ipratropium) 3 ml Q6HRT HHN 01/14/19 19:00 01/18/19 14:59 01/17/19 01:09 Aspirin (Ecotrin) 81 mg DAILY ORAL 01/15/19 09:00 02/12/19 08:59 01/16/19 08:55 Carvedilol (Coreg) 3.125 mg EVERY 12 HOURS ORAL 01/14/19 15:15 02/13/19 15:14 01/15/19 20:41 Chlorhexidine Gluconate (Sallie-Hex 2%) 1 applic DAILY@1999 TOPIC 01/14/19 20:00 02/13/19 19:59 01/16/19 21:13 Dextrose (Dextrose 50%) 25 ml Q30M PRN IV Hypoglycemia 01/14/19 13:30 02/11/19 22:59 Dextrose (Dextrose 50%) 50 ml Q30M PRN IV Hypoglycemia 01/14/19 13:30 02/11/19 22:59 Furosemide (Lasix) 40 mg DAILY IV 01/17/19 09:00 02/16/19 08:59 Hydromorphone HCl (Dilaudid) 1 mg Q4H PRN SUBQ Severe Pain (Pain Scale 7-10) 01/14/19 13:15 01/21/19 13:14 01/14/19 21:21 Lisinopril (Zestril) 2.5 mg DAILY ORAL 01/14/19 15:16 02/13/19 15:15 01/15/19 09:02 Ondansetron HCl (Zofran) 4 mg Q6H PRN IVP Nausea & Vomiting 01/14/19 13:16 02/13/19 13:15 Pantoprazole (Protonix) 40 mg DAILY ORAL 01/15/19 09:00 02/13/19 08:59 01/16/19 08:55 Potassium Chloride (K-Dur) 40 meq DAILY ORAL 01/15/19 12:00 02/14/19 11:59 01/16/19 08:56 Rivaroxaban (Xarelto) 20 mg DAILY ORAL 01/15/19 09:00 02/13/19 08:59 01/16/19 08:55 Spironolactone (Aldactone) 25 mg DAILY ORAL 01/17/19 09:00 02/16/19 08:59 Tamsulosin HCl (Flomax) 0.4 mg BEDTIME ORAL 01/14/19 21:00 02/13/19 20:59 01/16/19 21:13 Vancomycin HCl (Vanco rx to dose) 1 ea DAILY PRN MISC Per rx protocol 01/15/19 09:00 02/12/19 14:44 Vancomycin HCl 750 mg/Dextrose 275 ml @ 184 mls/hr Q12H IVPB 01/16/19 15:00 01/21/19 14:59 01/17/19 02:43 Last 24 Hour Vital Signs Date Time Temp Pulse Resp B/P (MAP) Pulse Ox O2 Delivery O2 Flow Rate FiO2 01/17/19 04:55 74 21 98 Full Face 35 01/17/19 04:00 92 01/17/19 04:00 97.8 47 20 116/70 (85) 97 01/17/19 03:28 69 20 97 Full Face 35 01/17/19 01:10 62 22 98 Full Face 35 01/17/19 01:09 60 21 99 Bi-Pap 35 58 23 98 01/17/19 00:58 2.0 35 01/17/19 00:00 93 01/17/19 00:00 98.4 50 20 104/75 (85) 98 01/16/19 22:58 77 26 98 Full Face 35 01/16/19 21:00 50 102/71 01/16/19 21:00 Nasal Cannula 3.0 01/16/19 20:00 98.4 50 20 102/71 (81) 98 01/16/19 20:00 95 01/16/19 19:27 97 Nasal Cannula 2.0 28 01/16/19 19:25 63 18 99 Nasal Cannula 2.0 28 62 18 97 01/16/19 16:00 89 01/16/19 16:00 98.9 46 20 121/72 (88) 97 01/16/19 12:35 64 18 99 Nasal Cannula 2.0 28 63 18 98 01/16/19 12:00 97.3 47 20 105/67 (80) 93 01/16/19 11:44 84 01/16/19 09:00 Nasal Cannula 3.0 01/16/19 08:57 95/59 01/16/19 08:56 62 95/59 01/16/19 08:00 97.5 62 20 95/59 (71) 95 01/16/19 07:50 86 01/16/19 07:40 59 18 99 Nasal Cannula 2.0 28 57 18 98 01/16/19 07:40 98 Nasal Cannula 2.0 28 01/16/19 05:28 65 20 97 Full Face 35 01/16/19 03:55 97.9 88 20 126/58 (80) 100 01/16/19 03:29 93 01/16/19 03:12 68 22 98 Full Face 35 01/16/19 01:14 74 24 99 Full Face 35 74 22 99 Bi-Pap 35 01/16/19 00:00 35 01/16/19 00:00 97.9 79 22 100/59 (73) 98 01/15/19 23:30 69 36 98 Full Face 35 01/15/19 23:30 35 01/15/19 23:29 93 01/15/19 21:00 Nasal Cannula 3.0 01/15/19 20:41 88 100/58 01/15/19 20:00 3.0 01/15/19 20:00 98.2 86 16 100/58 (72) 97 01/15/19 19:35 87 01/15/19 19:24 96 Nasal Cannula 2.0 28 01/15/19 19:22 51 18 100 Nasal Cannula 2.0 28 46 18 96 01/15/19 16:00 Nasal Cannula 3.0 01/15/19 16:00 98.1 90 20 107/70 (82) 96 01/15/19 15:53 92 01/15/19 14:02 69 18 100 Nasal Cannula 2.0 28 62 18 99 01/15/19 12:52 83 01/15/19 12:29 Nasal Cannula 3.0 01/15/19 12:00 97.7 85 22 105/68 (80) 97 01/15/19 09:40 105 01/15/19 09:03 83 106/69 01/15/19 09:02 106/69 01/15/19 08:11 99 Nasal Cannula 2.0 28 10/21/19 08:10 70 18 100 Nasal Cannula 2.0 28 78 20 99 01/15/19 08:02 Nasal Cannula 3.0 01/15/19 08:01 97.5 83 20 106/69 (81) 94 01/15/19 07:49 82 Intake and Output 01/16/19 01/17/19 18:59 06:59 Intake Total 720 ml Output Total 100 ml Balance 620 ml Intake Oral 720 ml Output Urine Total 100 ml Labs Test 01/14/19 13:00 01/15/19 05:20 01/16/19 02:00 01/16/19 21:00 Magnesium Level 1.6 MG/DL (1.8-2.4) 1.8 MG/DL (1.8-2.4) Pro-B-Type Natriuretic Peptide 40841 pg/mL (0-125) 72859 pg/mL (0-125) Vancomycin Level Trough 14.0 ug/mL (5.0-12.0) 26.9 ug/mL (5.0-12.0) White Blood Count 3.4 K/UL (4.8-10.8) Red Blood Count 3.52 M/UL (4.70-6.10) Hemoglobin 9.2 G/DL (14.2-18.0) Hematocrit 29.6 % (42.0-52.0) Mean Corpuscular Volume 84 FL (80-99) Mean Corpuscular Hemoglobin 26.0 PG (27.0-31.0) Mean Corpuscular Hemoglobin Concent 30.9 G/DL (32.0-36.0) Red Cell Distribution Width 19.2 % (11.6-14.8) Platelet Count 129 K/UL (150-450) Mean Platelet Volume 5.8 FL (6.5-10.1) Neutrophils (%) (Auto) % (45.0-75.0) Lymphocytes (%) (Auto) % (20.0-45.0) Monocytes (%) (Auto) % (1.0-10.0) Eosinophils (%) (Auto) % (0.0-3.0) Basophils (%) (Auto) % (0.0-2.0) Differential Total Cells Counted 100 Neutrophils % (Manual) 79 % (45-75) Lymphocytes % (Manual) 11 % (20-45) Monocytes % (Manual) 6 % (1-10) Eosinophils % (Manual) 4 % (0-3) Basophils % (Manual) 0 % (0-2) Band Neutrophils 0 % (0-8) Platelet Estimate Decreased Platelet Morphology Normal Anisocytosis 1+ Sodium Level 143 MMOL/L (136-145) Potassium Level 3.3 MMOL/L (3.5-5.1) Chloride Level 105 MMOL/L (98-107) Carbon Dioxide Level 32 MMOL/L (21-32) Anion Gap 6 mmol/L (5-15) Blood Urea Nitrogen 15 mg/dL (7-18) Creatinine 1.0 MG/DL (0.55-1.30) Estimat Glomerular Filtration Rate > 60 mL/min (>60) Glucose Level 80 MG/DL (74-106) Hemoglobin A1c 5.7 % (4.3-6.0) Uric Acid 6.3 MG/DL (2.6-7.2) Calcium Level 8.3 MG/DL (8.5-10.1) Phosphorus Level 2.6 MG/DL (2.5-4.9) Iron Level 33 ug/dL (50-175) Total Iron Binding Capacity 136 ug/dL (250-450) Percent Iron Saturation 24 % (15-50) Unsaturated Iron Binding 103 ug/dL (112-346) Ferritin 649 NG/ML (8-388) Total Bilirubin 0.9 MG/DL (0.2-1.0) Gamma Glutamyl Transpeptidase 56 U/L (5-85) Aspartate Amino Transf (AST/SGOT) 23 U/L (15-37) Alanine Aminotransferase (ALT/SGPT) 11 U/L (12-78) Alkaline Phosphatase 68 U/L (46-116) C-Reactive Protein, Quantitative 15.1 mg/dL (0.00-0.90) Total Protein 5.7 G/DL (6.4-8.2) Albumin 1.6 G/DL (3.4-5.0) Globulin 4.1 g/dL Albumin/Globulin Ratio 0.4 (1.0-2.7) Triglycerides Level 65 MG/DL (30-150) Cholesterol Level 80 MG/DL (< 200) LDL Cholesterol 40 mg/dL (<100) HDL Cholesterol 31 MG/DL (40-60) Cholesterol/HDL Ratio 2.6 (3.3-4.4) Vitamin B12 Level 790 PG/ML (193-986) Folate 15.8 NG/ML (8.6-58.9) Thyroid Stimulating Hormone (TSH) 4.547 uiU/mL (0.358-3.740) Height (Feet): 5 Height (Inches): 7.00 Weight (Pounds): 193 Objective General Appearance: no acute distress, cachetic HEENT: normocephalic, atraumatic, anicteric, mucous membranes moist, other - JVD Respiratory/Chest: crackles/rales Cardiovascular: irregularly irregular Abdomen: normal bowel sounds, soft, non tender, no organomegaly, non distended ++ colostomy Extremities: no cyanosis, no clubbing, other - + Louie Ram MD Jan 17, 2019 06:06
[2019-01-17] MEDS ORDERED: NS 275ml ONE (06:32)
--- NOTE | 2019-01-17 07:12 | NUR ---
NURSE NOTES: Ava, farm truck driver pronounced patient .
[2019-01-17 07:20] LABS: BASOPHILS % (AUTO) 0.9 % (0.0-2.0); EOSINOPHILS % (AUTO) 0.9 % (0.0-3.0); HEMATOCRIT 30.3 % (42.0-52.0); HEMOGLOBIN 9.7 G/DL (14.2-18.0); MEAN CORPUSCULAR VOLUME 82 FL (80-99); MONOCYTES % (AUTO) 11.4 % (1.0-10.0); NEUTROPHILS % (AUTO) 74.8 % (45.0-75.0); PLATELET COUNT 176 K/UL (150-450); RED CELL DISTRIBUTION WIDTH 20.6 % (11.6-14.8); WHITE BLOOD COUNT 5.3 K/UL (4.8-10.8)
--- NOTE | 2019-01-17 07:20 | NUR ---
NURSE NOTES: 0600 Patient was seen to be dirty. Restraint removed. Patient cleaned and turned. Patient stated that "I can't breathe" in Moroccan. LIBRARIAN [employer] translating. Patient appears pale looking, O2 saturation of 87%. Patient is on nasal cannula @ 2LPM. Increase oxygen @ 3LPM. Comfort care provided. 0615 Called RT to give breathing treatment. O2 increased to 90%, awaiting RT arrival. 0640 RT came to give breathing treatment and called my attention and informed that patient stopped breathing. 0645 Went to patient's room, checked pulse. Patient had faint heart beat and carotid pulse; noted to have minimal agonal breathing. Went to check medical insurance claims specialist, as per tech, HR is 80 and AV pacing. Informed charge nurse. Checked vital signs HR=0, BP=0, no chest rise, stopped breathing, cold and clammy. [address] Geiger and informed patient's condition, DNR/DNI. Nurse supervisor inspection made aware. 0712 As per tech, patient is asystole on the medical insurance claims specialist. Patient has no pulse. Charge nurse made aware and pronounced . 0720 Endorsed to RN AM shiftElena RN for post mortem care, to notify family member, and follow up of care.
--- NOTE | 2019-01-17 07:20 | NUR ---
HAND-OFF: Report given to [employer] Parker for post mortem care, to notify family member, and follow up of care.
--- NOTE | 2019-01-17 07:35 | NUR ---
NURSE NOTES: Called patient's with [employer] Griffith translating to let her know of patient's passing. She and her daughter says they will be here shortly to see patient.
--- NOTE | 2019-01-17 07:40 | NUR ---
NURSE NOTES: Dr. Geiger aware of patient's time of .
--- NOTE | 2019-01-17 07:45 | NUR ---
NURSE NOTES: [facility] called. Patient has been declined.
[2019-01-17 07:57] LABS: ALANINE AMINOTRANSFERASE 14 U/L (12-78); ALBUMIN 1.8 G/DL (3.4-5.0); ALBUMIN/GLOBULIN RATIO 0.4 (1.0-2.7); ALKALINE PHOSPHATASE 84 U/L (46-116); ANION GAP 8 mmol/L (5-15); ASPARTATE AMINO TRANSFERASE 25 U/L (15-37); BILIRUBIN,TOTAL 1.1 MG/DL (0.2-1.0); BLOOD UREA NITROGEN 15 mg/dL (7-18); CALCIUM 8.3 MG/DL (8.5-10.1); CARBON DIOXIDE 29 MMOL/L (21-32); CHLORIDE 102 MMOL/L (98-107); CREATININE 1.2 MG/DL (0.55-1.30); PHOSPHORUS 2.8 MG/DL (2.5-4.9); POTASSIUM 3.9 MMOL/L (3.5-5.1); SODIUM 139 MMOL/L (136-145)
--- NOTE | 2019-01-17 08:03 | NUR ---
NURSE NOTES: Called shampoo person and patient is not a candidate.
[2019-01-17 08:06] LABS: BILIRUBIN,DIRECT 0.5 MG/DL (0.0-0.3)
[2019-01-17] MEDS ORDERED: Spironolactone 25mg tab ORAL SCH (09:00)
--- NOTE | 2019-01-17 09:35 | NUR ---
NURSE NOTES: Family still not here to see patient. Called them to see about their arrival. No answer, left message. Will call again in 30 minutes
--- NOTE | 2019-01-17 10:00 | NUR ---
NURSE NOTES: Family arrived. MAde them aware that patient needs to go to the morgue as quickly as possible. They said they just want to see him for awhile and then they will go home and make the arrangements. Will give family time to visit with patient.
--- NOTE | 2019-01-17 10:50 | NUR ---
*-* INSURANCE *-* ALL AVAILABLE CLINICALS HAVE BEEN FAXED TO: [facility] P- [phone] f- [phone]...REVIEW/CLINICAL Addendum: 01/17/19 at 1450 by SACHA PENA S/W DARLENE CORNEJO [facility] SHE STATED NO AIRSET CASTER BUT CLINICALS HAVE BEEN RECEIVED.
--- NOTE | 2019-01-17 11:00 | NUR ---
NURSE NOTES: Patient's body taken down to morgue.
--- NOTE | 2019-01-18 08:53 | Discharge Summary ---
Discharge Summary Discharge Summary _ SUMMARY DATE OF ADMISSION: 01/12/2019 DATE OF EXPIRATION: 01/17/2019 REASON FOR ADMISSION: 58 years old male with past medical history of CVA in 2011, COPD/ asthma, heart attack, AICD, hypercholesterolemia, anemia, colostomy status, was sent from the nursing facility due to hypoxia, fall earlier that day. Patient with DNR/DNI status , comfort measures only. Patient apparently sustained a nonwitnessed fall out of his bed earlier and found on the floor at 1 PM. Patient was found to be hypoxic , saturating 80% on room air. Pulse oximetry improved with nonrebreathing mask. Upon evaluation patient was bradycardic with heart rate 54 , tachypneic with respiratory rate 22, borderline hypotensive with blood pressure 98/57 and hypoxic, but saturated 100% on nonrebreathing mask. Comfort measures were removed as per family. Patient's expressed desire that she would like to have BiPAP, central line and pressors as needed. No intubation. Patient was placed on the BiPAP. Patient later became hypotensive , and central line was placed in the emergency department via the right internal jugular vein. Laboratory work-up revealed no leukocytosis, hemoglobin 9, hematocrit 29.8. Platelets 138. ABG revealed respiratory acidosis with PCO2 of 66. Chemistry demonstrated sodium 146, BUN 21, creatinine 1.2. Glucose 115. Lactic acid 1.2. Troponin - 0.01. pro BNP 26237. Stable LFT. Albumin 1.8. Urinalysis revealed evidence of pyuria and moderate bacteria. CT of the head revealed no intracranial hemorrhage, mass-effect or calvarial fracture. Old appearing left convexity and left parietal occipital infarcts. Nonacute appearing right frontal infarct. Chest x-ray demonstrated large left pleural effusion with whiteout of the left hemithorax. No evidence of mediastinal shift of the trachea. Enlarged cardiac size with note of multilead AICD. Patchy opacity in the right base possibly representing atelectasis or developing infiltrate. Follow-up chest x-ray demonstrated correct placement of right internal jugular line. Patient admitted to ICU for further management. CONSULTANTS: decay control operator Dr. Pineda pulmonary Dr. Maynard ID specialist Dr. Perry gyroscope technician Dr. Baltazar irrigation pump installer/oncologist Dr. Patterson [facility] COURSE: Patient admitted to ICU. Patient initially was on BiPAP, kept NPO and started on broad spectrum antibiotics. Shortly after admission to ICU patient required starting of pressors. Hemodynamic status was closely monitored with goal to keep mean arterial blood pressure above 65. Patient initially was on Levophed and then subsequently was switched to dobutamine. City Dispatcher closely followed. Echocardiogram demonstrated severe global left ventricular hypokinesis, inferior wall dyskinesis. Mild left ventricular hypertrophy. Moderate mitral regurgitation. Moderate tricuspid regurgitation. Right ventricular systolic pressure of 71, consistent with a severe pulmonary hypertension. Lipid panel was stable. Patient was followed-up with chest x-ray, which showed slightly improved aeration in the left upper lobe. Small bilateral pleural effusion, greater on the left. CT of the chest revealed massive cardiomegaly. Bilateral pleural effusion. Interstitial septal thickening and ground-glass opacity, probably on the basis of pulmonary edema. Mediastinal lymphadenopathy, nonspecific, could be reactive or neoplastic. Evidence of anasarca elsewhere with edema of the subcutaneous fat, ascites fluid , omental and retroperitoneal fat edema. On 01/14 patient was able to be weaned from pressors. Hemodynamic status was closely monitored. Blood pressure improved. IVF discontinued. Patient started on diuresis with close monitoring of volumes and renal parameters, Per decay control operator, patient most likely have chronic systolic and diastolic congestive heart failure. Hypoxia was most likely not due to acute chronic heart failure but likely due to left lung collapse and resulting acute respiratory acidosis and pulmonary deterioration.. Telemetry showed likely permanent atrial fibrillation with biventricular paced rhythm. Heart rate was controlled. Xarelto was continued. Guideline directed medical therapy for congestive heart failure with Lasix , Aldactone, beta-garret and FIOR inhibitor provided , as blood pressure improved. Antiplatelet therapy with aspirin continued. BiPAP was discontinued to be used on as needd basis. Supplemental oxygen titrated to keep pulse oximetry above 90% . Bronchodilator therapy with DuoNeb provided around the clock and as needed. Chest physical therapy provided. Treatment with Mucomyst provided. Strict aspiration precaution maintained. Volumes and cardiorenal parameters were closely monitored. Patient was on Xarelto. Renal parameters and electrolytes were closely monitored, electrolytes/ potassium corrected as needed. Strict aspiration precautions were maintained. Diet provided as per speech therapist recommendation after bedside swallow evaluation with strict aspiration/reflux precautions. Patient was at high risk for silent aspiration given history of CVA. Blood cultures were negative. Urine culture revealed MRSA. Sputum culture revealed MRSA and Venessa. Antibiotic regimen was provided as per ID specialist recommendation . Pain management was addressed as needed. Supportive care provided. Senior Technical Editor/ oncologist followed. Hepatitis panel was negative . HIV status was nonreactive. Stool for occult blood was negative. Hemoglobin and hematocrit were closely monitored with goal to keep hemoglobin above 7. No need for transfusion at this time. Patient's condition was deteriorating. At 7:12am patient went to asystole on threat monitoring analyst and had no pulse. Patient subsequently pronounced at 7:12 am on 01/17. Cause of : cardiopulmonary arrest. FINAL DIAGNOSES Septic shock Acute hypoxic hypercapnic respiratory failure Sepsis secondary to healthcare associated pneumonia and UTI MRSA pneumonia , MRSA UTI left lung collapse Encephalopathy History of CVA Dementia Congestive heart failure, systolic and diastolic Severe cardiomyopathy EF 20% Severe pulmonary hypertension Status post defibrillator implantation Probably permanent atrial fibrillation Colostomy status I have been assigned to dictate discharge summary for this account. I was not involved in the patient's management. Deisy Welch NP Jan 18, 2019 08:53
--- NOTE | 2019-01-18 11:46 | NUR ---
*-* INSURANCE *-* DISCHARGE SUMMARY CLINICALS HAVE BEEN FAXED TO: [facility] P- [phone] F- [phone]...REVIEW/CLINICAL
== END 2019-01-17 09:06 | disposition expired | DRG 720 ==
LOC: EDBD 16:38 → EMR 16:57 → ICU 18:40 → EDBEDREQSVC 20:12 → EDBEDREQ 20:25 → EDBEDREQSVC 21:04 → 2E 01-14 13:45
PROC: 5A09457 Assistance with Respiratory Ventilation, 24-96 Consecutive Hours, Continuous Positive Airway Pressure (ICD-10-PCS; principal; 2019-01-12)
PROC: 05HM33Z Insertion of Infusion Device into Right Internal Jugular Vein, Percutaneous Approach (ICD-10-PCS; 2019-01-12)
DX: A41.9 Sepsis, unspecified organism (principal); J15.212 Pneumonia due to Methicillin resistant Staphylococcus aureus; R65.21 Severe sepsis with septic shock; J96.01 Acute respiratory failure with hypoxia; J96.02 Acute respiratory failure with hypercapnia; I48.0 Paroxysmal atrial fibrillation; G93.40 Encephalopathy, unspecified; Y95 Nosocomial condition; N39.0 Urinary tract infection, site not specified; I42.9 Cardiomyopathy, unspecified; J98.19 Other pulmonary collapse; I50.42 Chronic combined systolic (congestive) and diastolic (congestive) heart failure; Z66 Do not resuscitate; Z86.73 Personal history of transient ischemic attack (TIA), and cerebral infarction without residual deficits; J44.9 Chronic obstructive pulmonary disease, unspecified; Z95.810 Presence of automatic (implantable) cardiac defibrillator; I48.21 Permanent atrial fibrillation; I27.20 Pulmonary hypertension, unspecified; Z93.3 Colostomy status; R59.0 Localized enlarged lymph nodes
CPT/HCPCS: 36415; 36600; 70450; 71045; 71250; 80048; 80053; 80061; 80202; 81003; 82248; 82270; 82378; 82550; 82553; 82607; 82728; 82746; 82803; 82977; 83036; 83540; 83550; 83605; 83735; 83880; 84100; 84443; 84484; 84550; 85007; 85025; 85610; 86140; 86703; 86705; 86709; 86710; 86803; 86850; 86900; 86901; 87040; 87070; 87081; 87086; 87181; 87205; 87340; 93306; 94640; 94660; J7030; J7620; J8499